=== PATIENT | female | born 1990 | race Caucasian/White ===

== ENCOUNTER → 2025-04-26 | Outpatient (CLI) | payer OTHER, SELFPAY ==
--- OUTSIDE RECORDS SUMMARY | 2025-04-26 21:48 | XMS RPT_ITS | CCD ---
Author Organization [facility] Care Team Providers Care Occupational Health Rn Name Role Phone Dossi Olesya SHARIF Unavailable Wiliam Reyes Unavailable Unavailable PROVIDER, UNKNOWN Unavailable Unavailable Lázaro Braga Unavailable Unavailable Aquiles Huber Unavailable Unavailable PROVIDER, UNKNOWN Unavailable Unavailable Lázaro Braga Unavailable Unavailable Dossi Olesya SHARIF Unavailable LÁZARO LINDA DO Primary Care Physician DAVIE MARCANO, DR SMITA Calzada Primary Care Physician CHRIS URENA Referring Unavailable CHRIS URENA Attending Unavailable LÁZARO LINDA Primary Care Unavailable Lázaro Linda DO Primary Care Provider [phone] ERICA VICTOR DO Referring Unavailable DAYA NICOLE, RAMON [employer] Consult[employer] Unavailable CHIVO THOMPSON MD Admitting Unavailable REVA MOBLEY-RODOLFO, PRASHANT Ovalle Attending Unavai concetta BRODERICK DO, DR SMITA Calzada Primary Care Unavail able DAVIE MARCANO, DR SMITA Calzada Primary Care Unavail able CALLY MOBLEY-MARY JO REYNOLDS Attending Eloise vailable XI MOBLEY-CHRISTIAN, OSITO Concepcion Attending Unav ailable DAVIE MARCANO, DR SMITA Calzada Primary Care Unavail able XI CHAN, OSITO Concepcion Attending Unav ailable DAVIE MARCANO, DR SMITA Calzada Primary Care Unavail able DAVIE MARCANO, DR SMITA Calzada Primary Care Unavail able CALLY MOBLEY-MARY JO REYNOLDS Attending Eloise vailable DAVIE MARCANO, DR SMITA Calzada Primary Care Physician EVANS SCHAEFER DO Attending Unavailable DAVIE MARCANO, DR SMITA Calzdaa Primary Care Unavail able DR SMITA BRODERICK DO Primary Care Unavail able DR SMITA BRODERICK DO Attending Unavail able Assessment, Health Risk Referring Unavaila ble Assessment, Health Risk Attending Unavaila ble Josie Jimenez Primary Care Unavailable Allergies Allergy Classification Reported Allergen(s) Allergy Type Date of Onset Reaction(s) Facility (7 sources) ONIONS; Translations: [ONIONS] food allergy 7 [facility] Work Phone: (14 sources) Onion extract; Translations: [onion] Drug Allergy 2 Migraines [facility] (1 source) OTHER; Translations: [OTHER] Propensity to adverse reactions (disorder) 7 [facility] (1 source) ONIONS [Other] Propensity to adverse reactions 7 [facility] Work Phone: Medications Current Medications Medication Drug Class(es) Dates Sig (Normalized) Sig (Original) FLUoxetine 20 mg oral capsule (5 sources) Serotonin Reuptake Inhibitor Start: 07-28-2023 PROzac 20 mg oral capsule Dose : 20 mg = 1 cap(s), Oral, qDay, # 30 cap(s), 0 Refill(s) Start Date: 07/28/23 Status: Ordered Quantity: 30.0 Unit: cap(s) Repeat number: 1 Vitamin D3 50,000 intl units (1250 mcg) oral capsule (8 sources) Start: 11-12-2020 Vitamin D3 50,000 intl units (1250 mcg) oral capsule Dose : 50,000 International_Unit = 1 cap(s), Oral, qWeek, # 13 cap(s), 3 Refill(s), Pharmacy: [address], Vitamin D deficiency, 172, cm, 11/12/20 10:37:00 EST, Height, kg, 11/12/20 10:37:00 EST, Dosing Weight Start Date: 11/12/20 Status: Ordered Completed/Discontinued Medications Medication Drug Class(es) Dates Sig (Normalized) Sig (Original) Acetaminophen (1 source) ACETAMINOPHEN (TYLENOL ORAL) Take by mouth. prn 0 Active Comment on above: Take by mouth. prn albuterol MDI (90 mcg/inh) CFC free inhalation aerosol (20 sources) Start: 09-22-2021 End: 10-22-2021 take 2 puff(s) by inhalation every four hours albuterol MDI (90 mcg/inh) CFC free inhalation aerosol 2 puff(s), Inhalation, q4h, ok to fill generic equivalent rescue inhaler, # 1 EA, 0 Refill(s), Pharmacy: [facility] 170.2, cm, 01/15/21 8:42:00 EDT, Height, kg, 01/15/21 8:42:00 EDT, Dosing Weight Start Date: 09/22/21 Stop Date: 10/22/21 Status: Ordered Quantity: 1.0 Unit: EA Repeat number: 1 Start: 09-22-2021 End: 10-22-2021 take 2 puff(s) by inhalation every four hours albuterol MDI (90 mcg/inh) CFC free inhalation aerosol 2 puff(s), Inhalation, q4h, ok to fill generic equivalent rescue inhaler, # 1 EA, 0 Refill(s), Pharmacy: [facility] 170.2, cm, 01/15/21 8:42:00 EDT, Height, kg, 01/15/21 8:42:00 EDT, Dosing Weight Start Date: 09/22/21 Stop Date: 10/22/21 Status: Ordered Start: 09-22-2021 End: 10-22-2021 take 2 puff(s) by inhalation every four hours albuterol MDI (90 mcg/inh) CFC free inhalation aerosol 2 puff(s), Inhalation, q4h, ok to fill generic equivalent rescue inhaler, # 1 EA, 0 Refill(s), Pharmacy: [facility]-[address] 170.2, cm, 01/15/21 8:42:00 EDT, Height, kg, 01/15/21 8:42:00 EDT, Dosing Weight Start Date: 09/22/21 Stop Date: 10/22/21 Status: Ordered ALPRAZolam 0.5 mg oral tablet (5 sources) Benzodiazepine Start: 07-28-2023 ALPRAZolam 0.5 mg oral tablet Dose : 0.5 mg = 1 tab(s), Oral, qDay, PRN for anxiety, 0 Refill(s), 113.8 Start Date: 07/28/23 Status: Ordered Repeat number: 1 levonorgestrel 0.957766 mg/hr intrauterine system (1 source) Progestin, Progestin-containin g Intrauterine Device Start: 03-04-2017 levonorgestrel (MIRENA) 20 mcg/24 hr (5 years) IUD Inserted in office 1 Each 0 03/04/2017 Active Comment on above: Inserted in office ondansetron 8 mg oral tablet (3 sources) Serotonin-3 Receptor Antagonist Start: 08-18-2022 End: 08-21-2022 take 1 tablet by mouth twice daily as needed for vomiting Zofran ODT use ondansetron oral tablet, disintegrating Dose : 8 mg =, Oral, BID, prn vomiting, # 6 tab(s), 0 Refill(s), Viral syndrome Start Date: 08/18/22 Stop Date: 08/21/22 Status: Ordered orlistat 60 mg oral capsule (1 source) Intestinal Lipase Inhibitor Start: 12-08-2018 take 1 capsule by mouth three times daily at mealtime Orlistat 60 mg capsule Take 1 capsule by mouth three times daily with meals. 90 capsule 3 12/08/2018 Active Comment on above: Take 1 capsule by mo [facility] three times daily with meals. Problems Active Problems Problem Classification Problem Date Documented Date Episodic/Chronic Abdominal pain (2 sources) Right upper quadrant pain; Translations: [Right upper quadrant pain] Onset: 08-28-2022 Episodic Anxiety disorders (15 sources) Anxiety disorder, unspecified; Translations: [Mixed anxiety and depressive disorder] Onset: 08-27-2018 05-25-2019 Chronic Headache; including migraine (19 sources) Other migraine, not intractable, without status migrainosus; Translations: [Migraine without aura, not intractable, with status migrainosus] Onset: 05-07-2018 05-25-2019 Chronic Headache; including migraine (3 sources) Headache; Translations: [Headache] Onset: 08-27-2018 Episodic Immunizations and screening for infectious disease (2 sources) Encounter for screening for human papillomavirus (HPV); Translations: [Encounter for screening for human papillomavirus (HPV)] Onset: 09-14-2023 Episodic Malaise and fatigue (15 sources) Fatigue; Translations: [Other fatigue] Onset: 07-28-2023 07-11-2019 Episodic Mood disorders (2 sources) Major depressive disorder, single episode, unspecified; Translations: [Major depressive disorder, single episode, unspecified] Onset: 08-27-2018 Nutritional deficiencies (13 sources) Vitamin D deficiency 10-10-2020 Chronic Other connective tissue disease (13 sources) Muscle pain 07-11-2019 Episodic Other hereditary and degenerative nervous system conditions (13 sources) Restless legs 05-25-2019 Chronic Other nervous system disorders (1 source) H/O: SCALLOP BINDER disorder; Translations: [Personal history of other diseases of the nervous system and sense organs] Onset: 07-28-2023 Episodic Other nutritional; endocrine; and metabolic disorders (13 sources) Body mass index 30+ - obesity 10-10-2020 Chronic Other nutritional; endocrine; and metabolic disorders (13 sources) Obesity 05-29-2019 Chronic Residual codes; unclassified (2 sources) Acquired absence of other specified parts of digestive tract; Translations: [Acquired absence of other specified parts of digestive tract] Onset: 08-27-2018 Episodic Screening and history of mental health and substance abuse codes (2 sources) Personal history of nicotine dependence; Translations: [Personal history of nicotine dependence] Onset: 08-27-2018 Episodic Thyroid disorders (15 sources) Hypothyroidism, unspecified; Translations: [Hypothyroidism] Onset: 08-27-2018 05-25-2019 Chronic Unclassified (20 sources) Patient encounter status 10-10-2020 Viral infection (2 sources) Viral disease; Translations: [Other viral agents as the cause of diseases classified elsewhere] Onset: 08-18-2022 Episodic Past or Other Problems Problem Classification Problem Date Documented Date Episodic/Chronic Cancer of cervix (1 source) Atypical squamous cells on cervical Papanicolaou smear cannot exclude high grade squamous intraepithelial lesion; Translations: [Atypical squamous cells cannot exclude high grade squamous intraepithelial lesion on cytologic smear of cervix (ASC-H)] Onset: 06-02-2021 06-29-2021 Episodic Other bone disease and musculoskeletal deformities (20 sources) Segmental and somatic dysfunction; Translations: [Segmental and somatic dysfunction of lumbar region] Onset: 04-28-2017 05-02-2017 Episodic Other non-traumatic joint disorders (1 source) Bilateral hip joint pain; Translations: [Pain in right hip] Onset: 08-30-2016 08-30-2016 Episodic Other nutritional; endocrine; and metabolic disorders (1 source) H/O: thyroid disorder; Translations: [Personal history of other endocrine, nutritional and metabolic disease] Onset: 07-10-2015 09-28-2021 Episodic Sprains and strains (7 sources) Strain of back muscle; Translations: [Other injury of unspecified body region] Onset: 04-28-2017 05-02-2017 Episodic Results Test Name Value Interpretation Reference Range Facility .Auto Diffon 08-23-2024 Basophil, Absolute 0.0 10 3/mcL Normal 0.0-0.2 [facility] Comment on above: Performed By: #### G FR, CMP, FE, CBC, MG, TSH, ANEU, ADIFF #### [address] [address] Basophils/100 WBC (Bld) 0.8 % Normal 0.0-2.5 [facility] Comment on above: Performed By: #### G FR, CMP, FE, CBC, MG, TSH, ANEU, ADIFF #### [address] [address] Eosinophil, Absolute 0.3 10 3/mcL Normal 0.0-0.7 [facility] Comment on above: Performed By: #### G FR, CMP, FE, CBC, MG, TSH, ANEU, ADIFF #### [address] [address] Eosinophils/100 WBC (Bld) 4.4 % Normal 0.0-7.0 [facility] Comment on above: Performed By: #### G FR, CMP, FE, CBC, MG, TSH, ANEU, ADIFF #### [address] [address] Lymphocyte, Absolute 1.5 10 3/mcL Normal 0.9-4.3 [facility] Comment on above: Performed By: #### G FR, CMP, FE, CBC, MG, TSH, ANEU, ADIFF #### [address] [address] Lymphocytes/100 WBC (Bld) 25.8 % Normal 20.0-40.0 [facility] Comment on above: Performed By: #### G FR, CMP, FE, CBC, MG, TSH, ANEU, ADIFF #### [address] [address] Monocyte, Absolute 0.4 10 3/mcL Normal 0.1-1.4 [facility] Comment on above: Performed By: #### G FR, CMP, FE, CBC, MG, TSH, ANEU, ADIFF #### [address] [address] Monocytes/100 WBC (Bld) 7.3 % Normal 2.0-13.0 [facility] Comment on above: Performed By: #### G FR, CMP, FE, CBC, MG, TSH, ANEU, ADIFF #### [address] [address] Neutrophils/100 WBC (Bld) 61.7 % Normal 50.0-75.0 [facility] Comment on above: Performed By: #### G FR, CMP, FE, CBC, MG, TSH, ANEU, ADIFF #### [address] [address] .GFRon 08-23-2024 GFR 94 ml/min/1.73sqm Normal [facility] Comment on above: Result Comment: GFR Population mean for , Non- Americans Ages 20-29 = 116 mL/min/1.73 sq.m. Ages 30-39 = 107 mL/min/1.73 sq.m. Ages 40-49 = 99 mL/min/1.73 sq.m. Ages 50-59 = 93 mL/min/1.73 sq.m. Ages 60-69 = 85 mL/min/1.73 sq.m. Ages 70+ = 75 mL/min/1.73 sq.m. Chronic Kidney Disease: Less than 60 mL/min/1.73 square meters End Stage Renal Disease: Less than 15 mL/min/1.73 square meters Performed By: #### G FR, CMP, FE, CBC, MG, TSH, ANEU, ADIFF #### [address] [address] GFR Non- 77 ml/min/1.73sqm Normal [facility] Comment on above: Result Comment: GFR Population mean for , Non- Americans Ages 20-29 = 116 mL/min/1.73 sq.m. Ages 30-39 = 107 mL/min/1.73 sq.m. Ages 40-49 = 99 mL/min/1.73 sq.m. Ages 50-59 = 93 mL/min/1.73 sq.m. Ages 60-69 = 85 mL/min/1.73 sq.m. Ages 70+ = 75 mL/min/1.73 sq.m. Chronic Kidney Disease: Less than 60 mL/min/1.73 square meters End Stage Renal Disease: Less than 15 mL/min/1.73 square meters Performed By: #### G FR, CMP, FE, CBC, MG, TSH, ANEU, ADIFF #### [address] [address] .NEUABSon 08-23-2024 Neutrophil, Absolute 3.6 10 3/mcL Normal 2.3-8.1 [facility] Comment on above: Performed By: #### G FR, CMP, FE, CBC, MG, TSH, ANEU, ADIFF #### [address] [address] CBCon 08-23-2024 Erythrocyte distribution width (RBC) [Ratio] 13.9 % Normal 11.5-15.5 [facility] Comment on above: Performed By: #### G FR, CMP, FE, CBC, MG, TSH, ANEU, ADIFF #### [address] [address] Hematocrit (Bld) [Volume fraction] 40.9 % Normal 34.0-46.0 [facility] Comment on above: Performed By: #### G FR, CMP, FE, CBC, MG, TSH, ANEU, ADIFF #### [address] [address] Hgb 13.5 G/dL Normal 12.0-16.0 [facility] Comment on above: Performed By: #### G FR, CMP, FE, CBC, MG, TSH, ANEU, ADIFF #### [address] [address] MCH (RBC) [Entitic mass] 28.4 pg Normal 27.0-33.0 [facility] Comment on above: Performed By: #### G FR, CMP, FE, CBC, MG, TSH, ANEU, ADIFF #### [address] [address] MCHC 33.0 G/dL Normal 32.0-36.0 [facility] Comment on above: Performed By: #### G FR, CMP, FE, CBC, MG, TSH, ANEU, ADIFF #### [address] [address] MCV (RBC) [Entitic vol] 85.9 fL Normal 80.0-99.0 [facility] Comment on above: Performed By: #### G FR, CMP, FE, CBC, MG, TSH, ANEU, ADIFF #### [address] [address] Platelet 260 10 3/mcL Normal 150-450 [facility] Comment on above: Performed By: #### G FR, CMP, FE, CBC, MG, TSH, ANEU, ADIFF #### [address] [address] Platelet mean volume (Bld) [Entitic vol] 9.1 fL Normal 6.6-10.5 [facility] Comment on above: Performed By: #### G FR, CMP, FE, CBC, MG, TSH, ANEU, ADIFF #### [address] [address] RBC 4.76 10 6/mcL Normal 4.10-5.30 [facility] Comment on above: Performed By: #### G FR, CMP, FE, CBC, MG, TSH, ANEU, ADIFF #### [address] [address] WBC 5.8 10 3/mcL Normal 4.5-10.8 [facility] Comment on above: Performed By: #### G FR, CMP, FE, CBC, MG, TSH, ANEU, ADIFF #### [address] [address] CMPon 08-23-2024 Albumin Level 3.9 G/dL Normal 3.5-5.0 [facility] Comment on above: Performed By: #### G FR, CMP, FE, CBC, MG, TSH, ANEU, ADIFF #### [address] [address] Albumin/Globulin [Mass ratio] 1.2 {ratio} Normal 1.1-2.5 [facility] Comment on above: Performed By: #### G FR, CMP, FE, CBC, MG, TSH, ANEU, ADIFF #### [address] [address] ALP [Catalytic activity/Vol] 103 U/L Normal 40-135 [facility] Comment on above: Performed By: #### G FR, CMP, FE, CBC, MG, TSH, ANEU, ADIFF #### [address] [address] ALT [Catalytic activity/Vol] 71 U/L High 14-59 [facility] Comment on above: Performed By: #### G FR, CMP, FE, CBC, MG, TSH, ANEU, ADIFF #### [address] [address] AST [Catalytic activity/Vol] 36 U/L Normal 10-40 [facility] Comment on above: Performed By: #### G FR, CMP, FE, CBC, MG, TSH, ANEU, ADIFF #### [address] [address] Bili Total 0.5 mg/dL Normal 0.2-1.0 [facility] Comment on above: Result Comment: Use of this assay is not recommended for patients undergoing treatment with eltrombopag due to the potential for falsely elevated results. Performed By: #### G FR, CMP, FE, CBC, MG, TSH, ANEU, ADIFF #### [address] [address] BUN/Creatinine Ratio 6 ratio Low 7-27 [facility] Comment on above: Performed By: #### G FR, CMP, FE, CBC, MG, TSH, ANEU, ADIFF #### [address] [address] Calcium [Mass/Vol] 9.3 mg/dL Normal 8.4-10.2 [facility] Comment on above: Performed By: #### G FR, CMP, FE, CBC, MG, TSH, ANEU, ADIFF #### [place] [address] Chloride [Moles/Vol] 103 mmol/L Normal 98-107 [facility] Comment on above: Performed By: #### G FR, CMP, FE, CBC, MG, TSH, ANEU, ADIFF #### [place] [address] CO2 [Moles/Vol] 26 mmol/L Normal 22-29 [facility] Comment on above: Performed By: #### G FR, CMP, FE, CBC, MG, TSH, ANEU, ADIFF #### [place] [address] Creatinine [Mass/Vol] 0.84 mg/dL Normal 0.55-1.02 [facility] Comment on above: Result Comment: Test ing performed on Siemens Dimension EXL analyzer using a modified kinetic Dmitry technique. Performed By: #### G FR, CMP, FE, CBC, MG, TSH, ANEU, ADIFF #### [address] [address] Electrolyte Balance 12.0 mEq/L Normal 4.0-15.0 [facility] Comment on above: Performed By: #### G FR, CMP, FE, CBC, MG, TSH, ANEU, ADIFF #### [place] [address] Globulin 3.3 G/dL Normal [facility] Comment on above: Performed By: #### G FR, CMP, FE, CBC, MG, TSH, ANEU, ADIFF #### [address] [address] Glucose [Mass/Vol] 86 mg/dL Normal 70-105 [facility] Comment on above: Performed By: #### G FR, CMP, FE, CBC, MG, TSH, ANEU, ADIFF #### [address] [address] Potassium [Moles/Vol] 4.0 mmol/L Normal 3.5-5.1 [facility] Comment on above: Performed By: #### G FR, CMP, FE, CBC, MG, TSH, ANEU, ADIFF #### [address] [address] Sodium [Moles/Vol] 141 mmol/L Normal 136-145 [facility] Comment on above: Performed By: #### G FR, CMP, FE, CBC, MG, TSH, ANEU, ADIFF #### [address] [address] Total Protein 7.2 G/dL Normal 6.4-8.2 [facility] Comment on above: Performed By: #### G FR, CMP, FE, CBC, MG, TSH, ANEU, ADIFF #### [address] [address] Urea nitrogen [Mass/Vol] 5 mg/dL Low 7-18 [facility] Comment on above: Performed By: #### G FR, CMP, FE, CBC, MG, TSH, ANEU, ADIFF #### [address] [address] FEon 08-23-2024 Iron [Mass/Vol] 57 ug/dL Normal 50-170 [facility] Comment on above: Performed By: #### G FR, CMP, FE, CBC, MG, TSH, ANEU, ADIFF #### [address] [address] LABORATORYOrdered By: SYSTEM SYSTEM on 08-23-2024 Albumin BCP dye [Mass/Vol] 3.9 G/dL Normal 3.5 - 5.0 G/dL AO ADM SS Albumin/Globulin [Mass ratio] 1.2 {ratio} Normal 1.1 - 2.5 ratio AO ADM SS ALP [Catalytic activity/Vol] 103 U/L Normal 40 - 135 U/L AO ADM SS ALT With P-5'-P [Catalytic activity/Vol] 71 U/L High 14 - 59 U/L AO ADM SS AST With P-5'-P [Catalytic activity/Vol] 36 U/L Normal 10 - 40 U/L AO ADM SS Basophils (Bld) [#/Vol] 0.0 103/mcL Normal 0.0 - 0.2 10^3/mcL AO Workflow SS Basophils/100 WBC (Bld) 0.8 % Normal 0.0 - 2.5 % AO Workflow SS Bilirubin [Mass/Vol] 0.5 mg/dL Normal 0.2 - 1 .0 mg/dL AO ADM SS Comment on above: Interpretive Data: U se of this assay is not recommended for patients undergoing treatment with eltrombopag due to the potential for falsely elevated results. Calcium [Mass/Vol] 9.3 mg/dL Normal 8.4 - 10. 2 mg/dL AO ADM SS Chloride [Moles/Vol] 103 mmol/L Normal 98 - 10 7 mmol/L AO ADM SS CO2 [Moles/Vol] 26 mmol/L Normal 22 - 29 mmol/L AO ADM SS Creatinine [Mass/Vol] 0.84 mg/dL Normal 0.55 - 1.02 mg/dL AO ADM SS Comment on above: Interpretive Data: T esting performed on Siemens Dimension EXL analyzer using a modified kinetic Dmitry technique. Electrolyte Balance 12.0 mEq/L Normal 4.0 - 15 .0 mEq/L AO ADM SS Eosinophil, Absolute 0.3 103/mcL Normal 0.0 - 0 .7 10^3/mcL AO Workflow SS Eosinophils/100 WBC (Bld) 4.4 % Normal 0.0 - 7.0 % AO Workflow SS Erythrocyte distribution width (RBC) [Ratio] 13.9 % Normal 11.5 - 15.5 % AO Workflow SS GFR/1.73 sq M.predicted among blacks MDRD (S/P/Bld) [Vol rate/Area] 94 ml/min/1.73sqm Invalid Interpretation Code AO Chemistry S Comment on above: Interpretive Data: GFR Population mean for , Non- Americans Ages 20-29 = 116 mL/min/1.73 sq.m. Ages 30-39 = 107 mL/min/1.73 sq.m. Ages 40-49 = 99 mL/min/1.73 sq.m. Ages 50-59 = 93 mL/min/1.73 sq.m. Ages 60-69 = 85 mL/min/1.73 sq.m. Ages 70+ = 75 mL/min/1.73 sq.m. Chronic Kidney Disease: Less than 60 mL/min/1.73 square meters End Stage Renal Disease: Less than 15 mL/min/1.73 square meters GFR/1.73 sq M.predicted among non-blacks MDRD (S/P/Bld) [Vol rate/Area] 77 ml/min/1.73sqm Invalid Interpretation Code AO Chemistry S Comment on above: Interpretive Data: GFR Population mean for , Non- Americans Ages 20-29 = 116 mL/min/1.73 sq.m. Ages 30-39 = 107 mL/min/1.73 sq.m. Ages 40-49 = 99 mL/min/1.73 sq.m. Ages 50-59 = 93 mL/min/1.73 sq.m. Ages 60-69 = 85 mL/min/1.73 sq.m. Ages 70+ = 75 mL/min/1.73 sq.m. Chronic Kidney Disease: Less than 60 mL/min/1.73 square meters End Stage Renal Disease: Less than 15 mL/min/1.73 square meters Globulin 3.3 G/dL Invalid Interpretation Code AO ADM SS Glucose [Mass/Vol] 86 mg/dL Normal 70 - 105 mg/dL AO ADM SS Hematocrit (Bld) [Volume fraction] 40.9 % Normal 34.0 - 46.0 % AO Workflow SS Hemoglobin (Bld) [Mass/Vol] 13.5 G/dL Normal 12.0 - 16.0 G/dL AO Workflow SS Iron [Mass/Vol] 57 ug/dL Normal 50 - 170 mcg/dL AO ADM SS Lymphocytes (Bld) [#/Vol] 1.5 103/mcL Normal 0.9 - 4.3 10^3/mcL AO Workflow SS Lymphocytes/100 WBC (Bld) 25.8 % Normal 20.0 - 40.0 % AO Workflow SS Magnesium [Mass/Vol] 2.1 mg/dL Normal 1.8 - 2 .4 mg/dL AO ADM SS MCH (RBC) [Entitic mass] 28.4 pg Normal 27.0 - 33.0 pg AO Workflow SS MCHC 33.0 G/dL Normal 32.0 - 36.0 G/dL AO Workflow SS MCV (RBC) [Entitic vol] 85.9 fL Normal 80.0 - 99.0 fL AO Workflow SS Monocytes (Bld) [#/Vol] 0.4 103/mcL Normal 0.1 - 1.4 10^3/mcL AO Workflow SS Monocytes/100 WBC (Bld) 7.3 % Normal 2.0 - 13.0 % AO Workflow SS Neutrophils (Bld) [#/Vol] 3.6 103/mcL Normal 2.3 - 8.1 10^3/mcL AO Workflow SS Neutrophils/100 WBC (Bld) 61.7 % Normal 50.0 - 75.0 % AO Workflow SS Platelet mean volume (Bld) [Entitic vol] 9.1 fL Normal 6.6 - 10.5 fL AO Workflow SS Platelets (Bld) [#/Vol] 260 103/mcL Normal 150 - 450 10^3/mcL AO Workflow SS Potassium [Moles/Vol] 4.0 mmol/L Normal 3.5 - 5.1 mmol/L AO ADM SS Protein [Mass/Vol] 7.2 G/dL Normal 6.4 - 8.2 G/dL AO ADM SS RBC (Bld) [#/Vol] 4.76 106/mcL Normal 4.10 - 5.3 0 10^6/mcL AO Workflow SS Sodium [Moles/Vol] 141 mmol/L Normal 136 - 145 mmol/L AO ADM SS TSH Qn 3.67 m[IU]/L Normal 0.36 - 3.74 mcIU/mL AO ADM SS Urea nitrogen [Mass/Vol] 5 mg/dL Low 7 - 18 mg/dL AO ADM SS Urea nitrogen/Creatinine [Mass ratio] 6 ratio Low 7 - 27 ratio AO ADM SS WBC (Bld) [#/Vol] 5.8 103/mcL Normal 4.5 - 10.8 10^3/mcL AO Workflow SS MGon 08-23-2024 Magnesium [Mass/Vol] 2.1 mg/dL Normal 1.8-2.4 [facility] Comment on above: Performed By: #### G FR, CMP, FE, CBC, MG, TSH, ANEU, ADIFF #### [facility] [address] [place], [place] [address] TSHon 08-23-2024 TSH Qn 3.67 m[IU]/L Normal 0.36-3.74 [facility] Comment on above: Performed By: #### G FR, CMP, FE, CBC, MG, TSH, ANEU, ADIFF #### [place] [id number] [place], [place] [address] [facility] Reporton 2022 [facility] Cytology Report . Pathology Reports Accession: Collected Date/Time: Received Date/Time: Pathologist: [id number] 09/14/2023 11:51 EST 09/14/2023 18:00 EST [facility] Cytology Report SPECIMEN: Specimen Description: Liquid Prep w/ HPV Specimen: Cervical Screening or Diagnostic: Screening RELEVANT HISTORY: LMP: not given IUD SPECIMEN ADEQUACY: SATISFACTORY FOR EVALUATION Endocervical/Transforma tional zone component present INTERPRETATION/RESULTS: NEGATIVE FOR INTRAEPITHELIAL LESION OR MALIGNANCY HIGH RISK HPV TESTING: Event Code Result HPV Interp See Interp HPVN HPV Interp Text: High Risk HPV Typing: NEGATIVE HPV types 16, 18, 31, 33, 35, 39, 45, 51, 52, 56, 58, 59, 66 and 68 DNA were undetectable or below the pre-set threshold. The ki High-Risk HPV DNA Test is not intended for use as a screening device for Pap normal women under age 30 and is not intended to substitute for regular Pap screening. The ki High-Risk HPV DNA Test is designed to augment existing methods for the detection of cervical disease and should be used in conjunction with clinical information derived from other diagnostic and screening tests, physical examinations and full medical history in accordance with appropriate patient management procedures. NOTE: A negative result does not preclude the presence of HPV infection because results depend on adequate specimen collection, absence of inhibitors and sufficient DNA to be detected. As of: 09/21/23 11:09 EST COMMENT: This Pap Test was successfully processed and evaluated with the assistance of the [employer] System. Pathology Reports Accession: Collected Date/Time: Received Date/Time: Pathologist: [id number] 09/14/2023 11:51 EST 09/14/2023 18:00 EST Electronically Signed by Pathology report verified by [facility] Screened by: KK Electronically signed by Nicky WINN (ASCP) Sign-Out Date: 09/21/2023 11:09 Performing Lab: [facility], [address] [place] [address] Pathology Dept Disclaimer The Pap test is a screening test for cervical cancer. As evidenced by published data, it is subject to both inherent false negative and false positive results. Your patient's results should be interpreted in context with pertinent clinical history including gynecological examination. Normal [facility] ([place]) HPVon 09-21-2023 HPV Interp Normal See Interp HPVN [facility] ([place]) Comment on above: Order Comment: Order placed by AP_HPV_ORDER rule from [id number] Result Comment: High Risk HPV Typing: NEGATIVE HPV types 16, 18, 31, 33, 35, 39, 45, 51, 52, 56, 58, 59, 66 and 68 DNA were undetectable or below the pre-set threshold. The ki High-Risk HPV DNA Test is not intended for use as a screening device for Pap normal women under age 30 and is not intended to substitute for regular Pap screening. The ki High-Risk HPV DNA Test is designed to augment existing methods for the detection of cervical disease and should be used in conjunction with clinical information derived from other diagnostic and screening tests, physical examinations and full medical history in accordance with appropriate patient management procedures. NOTE: A negative result does not preclude the presence of HPV infection because results depend on adequate specimen collection, absence of inhibitors and sufficient DNA to be detected. See Inter HPVN Performed By: #### A JANNA, PRO, TROPHS, ADIFF, ANSG, LAC, CBC, MDW, ABOG #### [id number] [place], [place] [address] HPV Source Cervix Normal [facility] ([place]) Comment on above: Order Comment: Order placed by AP_HPV_ORDER rule from [id number] Performed By: #### A JANNA, PRO, TROPHS, ADIFF, ANSG, LAC, CBC, MDW, ABOG #### [address] [address] CTPCRon 09-16-2023 C. trachomatis Interp Normal See CT Interp N [facility] ([place]) Comment on above: Result Comment: C. t rachomatis DNA not detected. Specimen is presumptive negative for C. trachomatis. A negative result does not preclude C. trachomatis infection because results depend on adequate specimen collection, absence of inhibitors, and sufficient DNA to be detected. See CT Interp N Performed By: #### A JANNA, PRO, TROPHS, ADIFF, ANSG, LAC, CBC, MDW, ABOG #### [id number] [place], [place] [address] C.trachomatis PCR Negative Normal Negative [facility] ([place]) Comment on above: Result Comment: Mole cular (PCR) assay performed on the [employer] Ki 4800 system. Performed By: #### A JANNA, PRO, TROPHS, ADIFF, ANSG, LAC, CBC, MDW, ABOG #### [address] [address] Chlam Source Cervix Normal [facility] ([place]) Comment on above: Performed By: #### A JANNA, PRO, TROPHS, ADIFF, ANSG, LAC, CBC, MDW, ABOG #### [address] [address] [id number] 09-16-2023 GC PCR Source Cervix Normal [facility] ([place]) Comment on above: Performed By: #### A JANNA, PRO, TROPHS, ADIFF, ANSG, LAC, CBC, MDW, ABOG #### [address] [address] N. gonorrhoeae (PCR) Negative [facility] [place]) Comment on above: Result Comment: Mole cular (PCR) assay performed on the [employer] Ki 4800 System. Performed By: #### A JANNA, PRO, TROPHS, ADIFF, ANSG, LAC, CBC, MDW, ABOG #### [id number] [place], [place] [address] N. gonorrhoeae Interp Normal See NG Interp N [facility] ([place]) Comment on above: Result Comment: N. g onorrhoeae DNA not detected. Specimen is presumptive negative for N. gonorrhoeae. A negative result does not preclude Neisseria gonorrhoeae infection because results depend on adequate specimen collection, absence of inhibitors, and sufficient DNA to be detected. See NG Interp N Performed By: #### A JANNA, PRO, TROPHS, ADIFF, ANSG, LAC, CBC, MDW, ABOG #### [id number] [place], [place] [address] LABORATORYOrdered By: Cam Rene on 09-14-2023 C. trachomatis DNA CHI+probe Ql (Unsp spec) Negative 2 (09/14/23 11:51 AM) Normal Negative Auto Viro/Sero SS Comment on above: Interpretive Data: M olecular (PCR) assay performed on the [employer] Ki 4800 system. C. trachomatis DNA CHI+probe Ql (Unsp spec) C. trachomatis DNA not detected. Specimen is presumptive negative forC. trachomatis.A negative result does not preclude C. trachomatis infection becauseresults depend on adequate specimen collection, absence of inhibitors,and sufficient DNA to be detected. Normal See CT Interp N AH Auto Viro/Sero SS N. gonorrhoeae DNA CHI+probe Ql (Unsp spec) Negative 1 (09/14/23 11:51 AM) Normal Negative AH Auto Viro/Sero SS Comment on above: Interpretive Data: M olecular (PCR) assay performed on the [employer] Ki 4800 System. N. gonorrhoeae DNA CHI+probe Ql (Unsp spec) N. gonorrhoeae DNA not detected. Specimen is presumptive negative forN. gonorrhoeae. A negative result does not preclude Neisseria gonorrhoeaeinfection because results depend on adequate specimen collection, absenceof inhibitors, and sufficient DNA to be detected. Normal See NG Interp N AH Auto Viro/Sero SS Laboratory - Specimen inform ationOrdered By: Cam Rene on 09-14-2023 Specimen source Nom (Unsp spec) Cervix (09/14/23 11:51 AM) Normal AH Auto Viro/Sero SS .Auto Diffon 07-28-2023 Basophil, Absolute 0.1 10 3/mcL Normal 0.0-0.2 [facility] [place]) Comment on above: Performed By: #### A JANNA, PRO, TROPHS, ADIFF, ANSG, LAC, CBC, MDW, ABOG #### [address] [address] Basophils/100 WBC (Bld) 0.7 % Normal 0.0-2.5 [facility] ([place]) Comment on above: Performed By: #### A JANNA, PRO, TROPHS, ADIFF, ANSG, LAC, CBC, MDW, ABOG #### [address] [address] Eosinophil, Absolute 0.3 10 3/mcL Normal 0.0-0.4 [facility] ([place]) Comment on above: Performed By: #### A JANNA, PRO, TROPHS, ADIFF, ANSG, LAC, CBC, MDW, ABOG #### [address] [address] Eosinophils/100 WBC (Bld) 3.0 % Normal 0.0-7.0 [facility] ([place]) Comment on above: Performed By: #### A JANNA, PRO, TROPHS, ADIFF, ANSG, LAC, CBC, MDW, ABOG #### [address] [address] Lymphocyte, Absolute 2.3 10 3/mcL Normal 0.8-3.9 [facility] ([place]) Comment on above: Performed By: #### A JANNA, PRO, TROPHS, ADIFF, ANSG, LAC, CBC, MDW, ABOG #### [address] [address] Lymphocytes/100 WBC (Bld) 26.0 % Normal 10.0-50.0 [facility] ([place]) Comment on above: Performed By: #### A JANNA, PRO, TROPHS, ADIFF, ANSG, LAC, CBC, MDW, ABOG #### [address] [address] Monocyte, Absolute 0.5 10 3/mcL Normal 0.2-1.0 [facility] [place]) Comment on above: Performed By: #### A JANNA, PRO, TROPHS, ADIFF, ANSG, LAC, CBC, MDW, ABOG #### [address] [address] Monocytes/100 WBC (Bld) 5.2 % Normal 1.7-13.0 [facility] ([place]) Comment on above: Performed By: #### A JANNA, PRO, TROPHS, ADIFF, ANSG, LAC, CBC, MDW, ABOG #### [address] [address] Neutrophils/100 WBC (Bld) 65.1 % Normal 37.0-80.0 [facility] ([place]) Comment on above: Performed By: #### A JANNA, PRO, TROPHS, ADIFF, ANSG, LAC, CBC, MDW, ABOG #### [address] [address] Basophil, Absolute 0.1 10 3/mcL Normal 0.0-0.2 [facility] [place]) Comment on above: Performed By: #### A JANNA, PRO, TROPHS, ADIFF, ANSG, LAC, CBC, MDW, ABOG #### [address] [address] Basophils/100 WBC (Bld) 0.8 % Normal 0.0-2.5 [facility] ([place]) Comment on above: Performed By: #### A JANNA, PRO, TROPHS, ADIFF, ANSG, LAC, CBC, MDW, ABOG #### [address] [address] Eosinophil, Absolute 0.3 10 3/mcL Normal 0.0-0.4 [facility] ([place]) Comment on above: Performed By: #### A JANNA, PRO, TROPHS, ADIFF, ANSG, LAC, CBC, MDW, ABOG #### [address] [address] Eosinophils/100 WBC (Bld) 2.4 % Normal 0.0-7.0 [facility] ([place]) Comment on above: Performed By: #### A JANNA, PRO, TROPHS, ADIFF, ANSG, LAC, CBC, MDW, ABOG #### [address] [address] Lymphocyte, Absolute 2.2 10 3/mcL Normal 0.8-3.9 [facility] ([place]) Comment on above: Performed By: #### A JANNA, PRO, TROPHS, ADIFF, ANSG, LAC, CBC, MDW, ABOG #### [address] [address] Lymphocytes/100 WBC (Bld) 20.6 % Normal 10.0-50.0 [facility] ([place]) Comment on above: Performed By: #### A JANNA, PRO, TROPHS, ADIFF, ANSG, LAC, CBC, MDW, ABOG #### [address] [address] Monocyte, Absolute 0.5 10 3/mcL Normal 0.2-1.0 [facility] [place]) Comment on above: Performed By: #### A JANNA, PRO, TROPHS, ADIFF, ANSG, LAC, CBC, MDW, ABOG #### [address] [address] Monocytes/100 WBC (Bld) 5.0 % Normal 1.7-13.0 [facility] ([place]) Comment on above: Performed By: #### A JANNA, PRO, TROPHS, ADIFF, ANSG, LAC, CBC, MDW, ABOG #### [address] [address] Neutrophils/100 WBC (Bld) 71.2 % Normal 37.0-80.0 [facility] ([place]) Comment on above: Performed By: #### A JANNA, PRO, TROPHS, ADIFF, ANSG, LAC, CBC, MDW, ABOG #### [address] [address] .GFRon 07-28-2023 GFR 104 ml/min/1.73sqm Normal [facility] ([place]) Comment on above: Result Comment: GFR Population mean for , Non- Americans Ages 20-29 = 116 mL/min/1.73 sq.m. Ages 30-39 = 107 mL/min/1.73 sq.m. Ages 40-49 = 99 mL/min/1.73 sq.m. Ages 50-59 = 93 mL/min/1.73 sq.m. Ages 60-69 = 85 mL/min/1.73 sq.m. Ages 70+ = 75 mL/min/1.73 sq.m. Chronic Kidney Disease: Less than 60 mL/min/1.73 square meters End Stage Renal Disease: Less than 15 mL/min/1.73 square meters Performed By: #### A JANNA, PRO, TROPHS, ADIFF, ANSG, LAC, CBC, MDW, ABOG #### [address] [address] GFR Non- 86 ml/min/1.73sqm Normal [facility] ([place]) Comment on above: Result Comment: GFR Population mean for , Non- Americans Ages 20-29 = 116 mL/min/1.73 sq.m. Ages 30-39 = 107 mL/min/1.73 sq.m. Ages 40-49 = 99 mL/min/1.73 sq.m. Ages 50-59 = 93 mL/min/1.73 sq.m. Ages 60-69 = 85 mL/min/1.73 sq.m. Ages 70+ = 75 mL/min/1.73 sq.m. Chronic Kidney Disease: Less than 60 mL/min/1.73 square meters End Stage Renal Disease: Less than 15 mL/min/1.73 square meters Performed By: #### A JANNA, PRO, TROPHS, ADIFF, ANSG, LAC, CBC, MDW, ABOG #### [address] [address] GFR Non- 72 ml/min/1.73sqm Normal [facility] ([place]) Comment on above: Result Comment: GFR Population mean for , Non- Americans Ages 20-29 = 116 mL/min/1.73 sq.m. Ages 30-39 = 107 mL/min/1.73 sq.m. Ages 40-49 = 99 mL/min/1.73 sq.m. Ages 50-59 = 93 mL/min/1.73 sq.m. Ages 60-69 = 85 mL/min/1.73 sq.m. Ages 70+ = 75 mL/min/1.73 sq.m. Chronic Kidney Disease: Less than 60 mL/min/1.73 square meters End Stage Renal Disease: Less than 15 mL/min/1.73 square meters Performed By: #### A JANNA, PRO, TROPHS, ADIFF, ANSG, LAC, CBC, MDW, ABOG #### [address] [address] GFR 87 ml/min/1.73sqm Normal [facility] ([place]) Comment on above: Result Comment: GFR Population mean for , Non- Americans Ages 20-29 = 116 mL/min/1.73 sq.m. Ages 30-39 = 107 mL/min/1.73 sq.m. Ages 40-49 = 99 mL/min/1.73 sq.m. Ages 50-59 = 93 mL/min/1.73 sq.m. Ages 60-69 = 85 mL/min/1.73 sq.m. Ages 70+ = 75 mL/min/1.73 sq.m. Chronic Kidney Disease: Less than 60 mL/min/1.73 square meters End Stage Renal Disease: Less than 15 mL/min/1.73 square meters Performed By: #### A JANNA, PRO, TROPHS, ADIFF, ANSG, LAC, CBC, MDW, ABOG #### [address] [address] .MDWon 07-28-2023 Monocyte Distribution Width 19.03 Normal 0.00-20.00 [facility] ([place]) Comment on above: Result Comment: For ED adult patients suspected of sepsis, MDW<=20.0 does not rule out sepsis or risk of sepsis Performed By: #### A JANNA, PRO, TROPHS, ADIFF, ANSG, LAC, CBC, MDW, ABOG #### [address] [address] .NEUABSon 07-28-2023 Neutrophil, Absolute 5.7 10 3/mcL Normal 2.9-6.2 [facility] ([place]) Comment on above: Performed By: #### A JANNA, PRO, TROPHS, ADIFF, ANSG, LAC, CBC, MDW, ABOG #### [address] [id number] Neutrophil, Absolute 7.6 10 3/mcL High 2.9-6.2 [facility] ([place]) Comment on above: Performed By: #### A JANNA, PRO, TROPHS, ADIFF, ANSG, LAC, CBC, MDW, ABOG #### [address] APTTon 07-28-2023 aPTT Coag (Bld) [Time] 29.6 s Normal 25.0-35.0 [facility] ([place]) Comment on above: Result Comment: For Heparin anticoagulation therapy, the recommended therapeutic range is: 50.6-87.4 seconds. Patients on heparin therapy may have an extreme result. Performed By: #### A JANNA, PRO, TROPHS, ADIFF, ANSG, LAC, CBC, MDW, ABOG #### [id number] Heparin dose (APTT) None Normal [facility] ([place]) Comment on above: Performed By: #### A JANNA, PRO, TROPHS, ADIFF, ANSG, LAC, CBC, MDW, ABOG #### [address] [address] CBCon 07-28-2023 Erythrocyte distribution width (RBC) [Ratio] 13.8 % Normal 11.5-14.5 [facility] ([place]) Comment on above: Performed By: #### A JANNA, PRO, TROPHS, ADIFF, ANSG, LAC, CBC, MDW, ABOG #### [address] [address] Hematocrit (Bld) [Volume fraction] 33.3 % Low 37.0-47.0 [facility] ([place]) Comment on above: Performed By: #### A JANNA, PRO, TROPHS, ADIFF, ANSG, LAC, CBC, MDW, ABOG #### [address] [address] Hgb 11.3 G/dL Low 12.0-16.0 [facility] ([place]) Comment on above: Performed By: #### A JANNA, PRO, TROPHS, ADIFF, ANSG, LAC, CBC, MDW, ABOG #### [address] [address] MCH (RBC) [Entitic mass] 28.8 pg Normal 27.0-31.2 [facility] ([place]) Comment on above: Performed By: #### A JANNA, PRO, TROPHS, ADIFF, ANSG, LAC, CBC, MDW, ABOG #### [address] [address] MCHC 33.9 G/dL Normal 33.0-37.0 [facility] ([place]) Comment on above: Performed By: #### A JANNA, PRO, TROPHS, ADIFF, ANSG, LAC, CBC, MDW, ABOG #### [address] [address] MCV (RBC) [Entitic vol] 84.9 fL Normal 80.0-94.0 [facility] ([place]) Comment on above: Performed By: #### A JANNA, PRO, TROPHS, ADIFF, ANSG, LAC, CBC, MDW, ABOG #### [address] [address] Platelet 233 10 3/mcL Normal 130-400 [facility] ([place]) Comment on above: Performed By: #### A JANNA, PRO, TROPHS, ADIFF, ANSG, LAC, CBC, MDW, ABOG #### [address] [address] Platelet mean volume (Bld) [Entitic vol] 8.6 fL Normal 7.4-10.4 [facility] ([place]) Comment on above: Performed By: #### A JANNA, PRO, TROPHS, ADIFF, ANSG, LAC, CBC, MDW, ABOG #### [address] [address] RBC 3.92 10 6/mcL Low 4.20-5.40 [facility] ([place]) Comment on above: Performed By: #### A JANNA, PRO, TROPHS, ADIFF, ANSG, LAC, CBC, MDW, ABOG #### [address] [address] WBC 8.8 10 3/mcL Normal 4.6-10.8 [facility] ([place]) Comment on above: Performed By: #### A JANNA, PRO, TROPHS, ADIFF, ANSG, LAC, CBC, MDW, ABOG #### [address] [address] Erythrocyte distribution width (RBC) [Ratio] 14.3 % Normal 11.5-14.5 [facility] ([place]) Comment on above: Performed By: #### A JANNA, PRO, TROPHS, ADIFF, ANSG, LAC, CBC, MDW, ABOG #### [address] [address] Hematocrit (Bld) [Volume fraction] 40.4 % Normal 37.0-47.0 [facility] ([place]) Comment on above: Performed By: #### A JANNA, PRO, TROPHS, ADIFF, ANSG, LAC, CBC, MDW, ABOG #### [address] [address] Hgb 13.5 G/dL Normal 12.0-16.0 [facility] ([place]) Comment on above: Performed By: #### A JANNA, PRO, TROPHS, ADIFF, ANSG, LAC, CBC, MDW, ABOG #### [address] [address] MCH (RBC) [Entitic mass] 28.6 pg Normal 27.0-31.2 [facility] ([place]) Comment on above: Performed By: #### A JANNA, PRO, TROPHS, ADIFF, ANSG, LAC, CBC, MDW, ABOG #### [address] [address] MCHC 33.4 G/dL Normal 33.0-37.0 [facility] ([place]) Comment on above: Performed By: #### A JANNA, PRO, TROPHS, ADIFF, ANSG, LAC, CBC, MDW, ABOG #### [address] [address] MCV (RBC) [Entitic vol] 85.4 fL Normal 80.0-94.0 [facility] ([place]) Comment on above: Performed By: #### A JANNA, PRO, TROPHS, ADIFF, ANSG, LAC, CBC, MDW, ABOG #### [address] [address] Platelet 294 10 3/mcL Normal 130-400 [facility] ([place]) Comment on above: Performed By: #### A JANNA, PRO, TROPHS, ADIFF, ANSG, LAC, CBC, MDW, ABOG #### [address] [address] Platelet mean volume (Bld) [Entitic vol] 8.4 fL Normal 7.4-10.4 [facility] ([place]) Comment on above: Performed By: #### A JANNA, PRO, TROPHS, ADIFF, ANSG, LAC, CBC, MDW, ABOG #### [address] [address] RBC 4.73 10 6/mcL Normal 4.20-5.40 [facility] ([place]) Comment on above: Performed By: #### A JANNA, PRO, TROPHS, ADIFF, ANSG, LAC, CBC, MDW, ABOG #### [address] [address] WBC 10.7 10 3/mcL Normal 4.6-10.8 [facility] ([place]) Comment on above: Performed By: #### A JANNA, PRO, TROPHS, ADIFF, ANSG, LAC, CBC, MDW, ABOG #### [address] [address] CMPon 07-28-2023 Albumin Level 3.2 G/dL Low 3.5-5.0 [facility] ([place]) Comment on above: Performed By: #### A JANNA, PRO, TROPHS, ADIFF, ANSG, LAC, CBC, MDW, ABOG #### [address] [address] Albumin/Globulin [Mass ratio] 1.0 {ratio} Low 1.1-2.5 [facility] ([place]) Comment on above: Performed By: #### A JANNA, PRO, TROPHS, ADIFF, ANSG, LAC, CBC, MDW, ABOG #### [address] [address] ALP [Catalytic activity/Vol] 87 U/L Normal 40-135 [facility] ([place]) Comment on above: Performed By: #### A JANNA, PRO, TROPHS, ADIFF, ANSG, LAC, CBC, MDW, ABOG #### [address] [address] ALT [Catalytic activity/Vol] 30 U/L Normal 14-59 [facility] ([place]) Comment on above: Performed By: #### A JANNA, PRO, TROPHS, ADIFF, ANSG, LAC, CBC, MDW, ABOG #### [address] [address] AST [Catalytic activity/Vol] 20 U/L Normal 10-40 [facility] ([place]) Comment on above: Performed By: #### A JANNA, PRO, TROPHS, ADIFF, ANSG, LAC, CBC, MDW, ABOG #### [address] [address] Bili Total 0.3 mg/dL Normal 0.2-1.0 [facility] ([place]) Comment on above: Result Comment: Use of this assay is not recommended for patients undergoing treatment with eltrombopag due to the potential for falsely elevated results. Performed By: #### A JANNA, PRO, TROPHS, ADIFF, ANSG, LAC, CBC, MDW, ABOG #### [address] [address] BUN/Creatinine Ratio 9 ratio Normal 7-27 [facility] [place]) Comment on above: Performed By: #### A JANNA, PRO, TROPHS, ADIFF, ANSG, LAC, CBC, MDW, ABOG #### [address] [address] Calcium [Mass/Vol] 8.3 mg/dL Low 8.4-10.2 [facility] ([place]) Comment on above: Performed By: #### A JANNA, PRO, TROPHS, ADIFF, ANSG, LAC, CBC, MDW, ABOG #### [address] [address] Chloride [Moles/Vol] 107 mmol/L Normal 98-107 [facility] [place] Comment on above: Performed By: #### A JANNA, PRO, TROPHS, ADIFF, ANSG, LAC, CBC, MDW, ABOG #### [address] [address] CO2 [Moles/Vol] 22 mmol/L Normal 22-29 [facility] ([place]) Comment on above: Performed By: #### A JANNA, PRO, TROPHS, ADIFF, ANSG, LAC, CBC, MDW, ABOG #### [address] [address] Creatinine [Mass/Vol] 0.77 mg/dL Normal 0.55-1.02 [facility] ([place]) Comment on above: Performed By: #### A JANNA, PRO, TROPHS, ADIFF, ANSG, LAC, CBC, MDW, ABOG #### [address] [address] Electrolyte Balance 13.0 mEq/L Normal 4.0-15.0 [facility] ([place]) Comment on above: Performed By: #### A JANNA, PRO, TROPHS, ADIFF, ANSG, LAC, CBC, MDW, ABOG #### [address] [address] Globulin 3.2 G/dL Normal [facility] ([place]) Comment on above: Performed By: #### A JANNA, PRO, TROPHS, ADIFF, ANSG, LAC, CBC, MDW, ABOG #### [address] [address] Glucose [Mass/Vol] 98 mg/dL Normal 70-105 [facility] ([place]) Comment on above: Performed By: #### A JANNA, PRO, TROPHS, ADIFF, ANSG, LAC, CBC, MDW, ABOG #### [address] [address] Potassium [Moles/Vol] 4.1 mmol/L Normal 3.5-5.1 [facility] ([place]) Comment on above: Performed By: #### A JANNA, PRO, TROPHS, ADIFF, ANSG, LAC, CBC, MDW, ABOG #### [address] [address] Sodium [Moles/Vol] 142 mmol/L Normal 136-145 [facility] ([place]) Comment on above: Performed By: #### A JANNA, PRO, TROPHS, ADIFF, ANSG, LAC, CBC, MDW, ABOG #### [address] [address] Total Protein 6.4 G/dL Normal 6.4-8.2 [facility] ([place]) Comment on above: Performed By: #### A JANNA, PRO, TROPHS, ADIFF, ANSG, LAC, CBC, MDW, ABOG #### [address] [address] Urea nitrogen [Mass/Vol] 7 mg/dL Normal 7-18 [facility] ([place]) Comment on above: Performed By: #### A JANNA, PRO, TROPHS, ADIFF, ANSG, LAC, CBC, MDW, ABOG #### [address] [address] Albumin Level 4.0 G/dL Normal 3.5-5.0 [facility] ([place]) Comment on above: Performed By: #### A JANNA, PRO, TROPHS, ADIFF, ANSG, LAC, CBC, MDW, ABOG #### [address] [address] Albumin/Globulin [Mass ratio] 1.0 {ratio} Low 1.1-2.5 [facility] ([place]) Comment on above: Performed By: #### A JANNA, PRO, TROPHS, ADIFF, ANSG, LAC, CBC, MDW, ABOG #### [address] [address] ALP [Catalytic activity/Vol] 104 U/L Normal 40-135 [facility] ([place]) Comment on above: Performed By: #### A JANNA, PRO, TROPHS, ADIFF, ANSG, LAC, CBC, MDW, ABOG #### [address] [address] ALT [Catalytic activity/Vol] 49 U/L Normal 14-59 [facility] ([place]) Comment on above: Performed By: #### A JANNA, PRO, TROPHS, ADIFF, ANSG, LAC, CBC, MDW, ABOG #### [address] [address] AST [Catalytic activity/Vol] 27 U/L Normal 10-40 [facility] ([place]) Comment on above: Performed By: #### A JANNA, PRO, TROPHS, ADIFF, ANSG, LAC, CBC, MDW, ABOG #### [address] [address] Bili Total 0.2 mg/dL Normal 0.2-1.0 [facility] ([place]) Comment on above: Result Comment: Use of this assay is not recommended for patients undergoing treatment with eltrombopag due to the potential for falsely elevated results. Performed By: #### A JANNA, PRO, TROPHS, ADIFF, ANSG, LAC, CBC, MDW, ABOG #### [address] [address] BUN/Creatinine Ratio 11 ratio Normal 7-27 [facility] [place] Comment on above: Performed By: #### A JANNA, PRO, TROPHS, ADIFF, ANSG, LAC, CBC, MDW, ABOG #### [address] [address] Calcium [Mass/Vol] 9.3 mg/dL Normal 8.4-10.2 [facility] ([place]) Comment on above: Performed By: #### A JANNA, PRO, TROPHS, ADIFF, ANSG, LAC, CBC, MDW, ABOG #### [place] [address] Chloride [Moles/Vol] 104 mmol/L Normal 98-107 [facility] [place] Comment on above: Performed By: #### A JANNA, PRO, TROPHS, ADIFF, ANSG, LAC, CBC, MDW, ABOG #### [address] [address] CO2 [Moles/Vol] 27 mmol/L Normal 22-29 [facility] ([place]) Comment on above: Performed By: #### A JANNA, PRO, TROPHS, ADIFF, ANSG, LAC, CBC, MDW, ABOG #### [address] [address] Creatinine [Mass/Vol] 0.90 mg/dL Normal 0.55-1.02 [facility] ([place]) Comment on above: Performed By: #### A JANNA, PRO, TROPHS, ADIFF, ANSG, LAC, CBC, MDW, ABOG #### [address] [address] Electrolyte Balance 7.0 mEq/L Normal 4.0-15.0 [facility] ([place]) Comment on above: Performed By: #### A JANNA, PRO, TROPHS, ADIFF, ANSG, LAC, CBC, MDW, ABOG #### [place] [address] Globulin 4.0 G/dL Normal [facility] ([place]) Comment on above: Performed By: #### A JANNA, PRO, TROPHS, ADIFF, ANSG, LAC, CBC, MDW, ABOG #### [address] [address] Glucose [Mass/Vol] 101 mg/dL Normal 70-105 [facility] ([place]) Comment on above: Performed By: #### A JANNA, PRO, TROPHS, ADIFF, ANSG, LAC, CBC, MDW, ABOG #### [address] [address] Potassium [Moles/Vol] 4.2 mmol/L Normal 3.5-5.1 [facility]) Comment on above: Performed By: #### A JANNA, PRO, TROPHS, ADIFF, ANSG, LAC, CBC, MDW, ABOG #### [address] [address] Sodium [Moles/Vol] 138 mmol/L Normal 136-145 [facility] ([place]) Comment on above: Performed By: #### A JANNA, PRO, TROPHS, ADIFF, ANSG, LAC, CBC, MDW, ABOG #### [address] [address] Total Protein 8.0 G/dL Normal 6.4-8.2 [facility]) Comment on above: Performed By: #### A JANNA, PRO, TROPHS, ADIFF, ANSG, LAC, CBC, MDW, ABOG #### [address] [address] Urea nitrogen [Mass/Vol] 10 mg/dL Normal 7-18 [facility] ([place]) Comment on above: Performed By: #### A JANNA, PRO, TROPHS, ADIFF, ANSG, LAC, CBC, MDW, ABOG #### [address] [address] CRPon 07-28-2023 C-Reactive Protein 1.3 mg/dL High 0.0-0.3 [facility]) Comment on above: Performed By: #### A JANNA, PRO, TROPHS, ADIFF, ANSG, LAC, CBC, MDW, ABOG #### [place] [id number] [place], [place] [address] CT ANGIOGRAPHY HEAD W/ CONTR Pro 07-28-2023 CT ANGIOGRAPHY HEAD W/ CONTRAST ORIGINAL EXAMINATION: CTA OF THE HEAD WITH CONTRAST 07/28/2023 12:51 am: TECHNIQUE: CTA of the head/brain was performed with the administration of intravenous contrast. Multiplanar reformatted images are provided for review. MIP images are provided for review. Automated exposure control, iterative reconstruction, and/or weight based adjustment of the mA/kV was utilized to reduce the radiation dose to as low as reasonably achievable. COMPARISON: CT head performed same day HISTORY: ORDERING SYSTEM PROVIDED HISTORY: Reason for Exam: Stroke Emergency FINDINGS: ANTERIOR CIRCULATION: No significant stenosis of the intracranial internal carotid, anterior cerebral, or middle cerebral arteries. No aneurysm. POSTERIOR CIRCULATION: No significant stenosis of the vertebral, basilar, or posterior cerebral arteries. No aneurysm. IMPRESSION: Unremarkable CTA of the head. Interpreted by: Vidal Smith Preliminary Report By: Vidal Smith Electronically signed By Vidal Smith Dictated Date: 07/28/2023 12:52:47 AM Prelim Date: 07/28/2023 12:57:06 AM Sign Date: 07/28/2023 12:57:06 AM Ordering Provider: CHIVO Street [facility] ([place]) CT ANGIOGRAPHY NECK W/CONTRA SToespinoza 07-28-2023 CT ANGIOGRAPHY NECK W/CONTRAST ORIGINAL EXAMINATION: CTA OF THE NECK 07/28/2023 12:36 am TECHNIQUE: CTA of the neck was performed with the administration of intravenous contrast. Multiplanar reformatted images are provided for review. MIP images are provided for review. Stenosis of the internal carotid arteries measured using NASCET criteria. Automated exposure control, iterative reconstruction, and/or weight based adjustment of the mA/kV was utilized to reduce the radiation dose to as low as reasonably achievable. COMPARISON: None. HISTORY: ORDERING SYSTEM PROVIDED HISTORY: Reason for Exam: Stroke Emergency FINDINGS: AORTIC ARCH/ARCH VESSELS: No dissection or arterial injury. No significant stenosis of the brachiocephalic or subclavian arteries. CAROTID ARTERIES: No dissection, arterial injury, or hemodynamically significant stenosis by NASCET criteria. VERTEBRAL ARTERIES: Co dominant and mildly tortuous. No dissection, arterial injury, or significant stenosis. SOFT TISSUES: The lung apices are clear. There are prominent right greater than left cervical chain lymph nodes, however not pathologically enlarged, nonspecific. The larynx and pharynx are unremarkable. No acute abnormality of the salivary and thyroid glands. BONES: No acute osseous abnormality. IMPRESSION: Patent CTA of the neck with no significant abnormality. Interpreted by: Atif Casillas Preliminary Report By: Atif Casillas Electronically signed By Atif Casillas Dictated Date: 07/28/2023 12:38:30 AM Prelim Date: 07/28/2023 12:41:55 AM Sign Date: 07/28/2023 12:41:55 AM Ordering Provider: CHIVO THOMPSON [facility] ([place]) CT HEAD OR BRAIN W/O CONTRAS Ton 07-28-2023 CT HEAD OR BRAIN W/O CONTRAST ORIGINAL EXAMINATION: CT OF THE HEAD WITHOUT CONTRAST 07/28/2023 12:04 am TECHNIQUE: CT of the head was performed without the administration of intravenous contrast. Automated exposure control, iterative reconstruction, and/or weight based adjustment of the mA/kV was utilized to reduce the radiation dose to as low as reasonably achievable. COMPARISON: None. HISTORY: ORDERING SYSTEM PROVIDED HISTORY: Reason for Exam: VISION CHANGES, MEMORY PROBLEMS, PATIENT STATES SHE FEELS DRUGGED. change in mental status/weakness/aphasia FINDINGS: BRAIN/VENTRICLES: There is no acute intracranial hemorrhage, mass effect or midline shift. No abnormal extra-axial fluid collection. The waddell-white differentiation is maintained without evidence of an acute infarct. There is no evidence of hydrocephalus. ORBITS: The visualized portion of the orbits demonstrate no acute abnormality. Nonspecific mild tortuosity to the optic nerves. SINUSES: The visualized paranasal sinuses and mastoid air cells demonstrate no acute abnormality. SOFT TISSUES/SKULL: No acute abnormality of the visualized skull or soft tissues. IMPRESSION: No acute intracranial abnormality. Findings were discussed with Dr. Thompson at 12:10 a.m. on 07/28/2023. I have personally reviewed the images of this examination and agree with the resident's findings and interpretation. Interpreted by: Vidal Smith Preliminary Report By: Brandi Avila Electronically signed By Vidal Smith Dictated Date: 07/28/2023 12:06:34 AM Prelim Date: 07/28/2023 12:11:40 AM Sign Date: 07/28/2023 12:27:10 AM Ordering Provider: CHIVO Street [facility] ([place]) FT4on 07-28-2023 Free T4 [Mass/Vol] 1.03 ng/dL Normal 0.76-1.46 [facility] ([place]) Comment on above: Performed By: #### A JANNA, PRO, TROPHS, ADIFF, ANSG, LAC, CBC, MDW, ABOG #### [address] [address] Gel ABOon 07-28-2023 ABO/Rh Interp Positive Invalid Interpretation Code [facility]) Comment on above: Performed By: #### A JANNA, PRO, TROPHS, ADIFF, ANSG, LAC, CBC, MDW, ABOG #### [place] [id number] [place], [place] [address] Gel ABSon 07-28-2023 Antibody Screen Gel Negative Normal [facility]) Comment on above: Performed By: #### A JANNA, PRO, TROPHS, ADIFF, ANSG, LAC, CBC, MDW, ABOG #### [address] [address] LABORATORYOrdered By: SYSTEM SYSTEM on 07-28-2023 Albumin BCP dye [Mass/Vol] 3.2 G/dL Invalid Interpretation Code 3.5 - 5.0 G/dL AO ADM SS Albumin/Globulin [Mass ratio] 1.0 {ratio} Invalid Interpretation Code 1.1 - 2.5 ratio AO ADM SS ALP [Catalytic activity/Vol] 87 U/L Invalid Interpretation Code 40 - 135 U/L AO ADM SS ALT With P-5'-P [Catalytic activity/Vol] 30 U/L Invalid Interpretation Code 14 - 59 U/L AO ADM SS AST With P-5'-P [Catalytic activity/Vol] 20 U/L Invalid Interpretation Code 10 - 40 U/L AO ADM SS Basophil, Absolute 0.1 103/mcL Invalid Interpretation Code 0.0 - 0.2 10^3/mcL AO Workflow SS Basophils/100 WBC (Bld) 0.7 % Invalid Interpretation Code 0.0 - 2.5 % AO Workflow SS Bilirubin [Mass/Vol] 0.3 mg/dL Invalid Interpretation Code 0.2 - 1.0 mg/dL AO ADM SS Comment on above: Interpretive Data: U se of this assay is not recommended for patients undergoing treatment with eltrombopag due to the potential for falsely elevated results. Calcium [Mass/Vol] 8.3 mg/dL Invalid Interpretation Code 8.4 - 10.2 mg/dL AO ADM SS Chloride [Moles/Vol] 107 mmol/L Invalid Interpretation Code 98 - 107 mmol/L AO ADM SS CO2 [Moles/Vol] 22 mmol/L Invalid Interpretation Code 22 - 29 mmol/L AO ADM SS Creatinine [Mass/Vol] 0.77 mg/dL Invalid Interpretation Code 0.55 - 1.02 mg/dL AO ADM SS Electrolyte Balance 13.0 mEq/L Invalid Interpretation Code 4.0 - 15.0 mEq/L AO ADM SS Eosinophil, Absolute 0.3 103/mcL Invalid Interpretation Code 0.0 - 0.4 10^3/mcL AO Workflow SS Eosinophils/100 WBC (Bld) 3.0 % Invalid Interpretation Code 0.0 - 7.0 % AO Workflow SS Erythrocyte distribution width (RBC) [Ratio] 13.8 % Invalid Interpretation Code 11.5 - 14.5 % AO Workflow SS Free T4 [Mass/Vol] 1.03 ng/dL Invalid Interpretation Code 0.76 - 1.46 ng/dL AO ADM SS GFR/1.73 sq M.predicted among blacks MDRD (S/P/Bld) [Vol rate/Area] 104 ml/min/1.73sqm Invalid Interpretation Code AO Chemistry S Comment on above: Interpretive Data: GFR Population mean for , Non- Americans Ages 20-29 = 116 mL/min/1.73 sq.m. Ages 30-39 = 107 mL/min/1.73 sq.m. Ages 40-49 = 99 mL/min/1.73 sq.m. Ages 50-59 = 93 mL/min/1.73 sq.m. Ages 60-69 = 85 mL/min/1.73 sq.m. Ages 70+ = 75 mL/min/1.73 sq.m. Chronic Kidney Disease: Less than 60 mL/min/1.73 square meters End Stage Renal Disease: Less than 15 mL/min/1.73 square meters GFR/1.73 sq M.predicted among non-blacks MDRD (S/P/Bld) [Vol rate/Area] 86 ml/min/1.73sqm Invalid Interpretation Code AO Chemistry S Comment on above: Interpretive Data: GFR Population mean for , Non- Americans Ages 20-29 = 116 mL/min/1.73 sq.m. Ages 30-39 = 107 mL/min/1.73 sq.m. Ages 40-49 = 99 mL/min/1.73 sq.m. Ages 50-59 = 93 mL/min/1.73 sq.m. Ages 60-69 = 85 mL/min/1.73 sq.m. Ages 70+ = 75 mL/min/1.73 sq.m. Chronic Kidney Disease: Less than 60 mL/min/1.73 square meters End Stage Renal Disease: Less than 15 mL/min/1.73 square meters Globulin 3.2 G/dL Invalid Interpretation Code AO ADM SS Glucose [Mass/Vol] 98 mg/dL Invalid Interpretation Code 70 - 105 mg/dL AO ADM SS Hematocrit (Bld) [Volume fraction] 33.3 % Invalid Interpretation Code 37.0 - 47.0 % AO Workflow SS Hemoglobin (Bld) [Mass/Vol] 11.3 G/dL Invalid Interpretation Code 12.0 - 16.0 G/dL AO Workflow SS Lymphocyte, Absolute 2.3 103/mcL Invalid Interpretation Code 0.8 - 3.9 10^3/mcL AO Workflow SS Lymphocytes/100 WBC (Bld) 26.0 % Invalid Interpretation Code 10.0 - 50.0 % AO Workflow SS Magnesium [Mass/Vol] 1.9 mg/dL Invalid Interpretation Code 1.8 - 2.4 mg/dL AO ADM SS MCH (RBC) [Entitic mass] 28.8 pg Invalid Interpretation Code 27.0 - 31.2 pg AO Workflow SS MCHC 33.9 G/dL Invalid Interpretation Code 33.0 - 37.0 G/dL AO Workflow SS MCV (RBC) [Entitic vol] 84.9 fL Invalid Interpretation Code 80.0 - 94.0 fL AO Workflow SS Monocyte, Absolute 0.5 103/mcL Invalid Interpretation Code 0.2 - 1.0 10^3/mcL AO Workflow SS Monocytes/100 WBC (Bld) 5.2 % Invalid Interpretation Code 1.7 - 13.0 % AO Workflow SS Neutrophil, Absolute 5.7 103/mcL Invalid Interpretation Code 2.9 - 6.2 10^3/mcL AO Workflow SS Neutrophils/100 WBC (Bld) 65.1 % Invalid Interpretation Code 37.0 - 80.0 % AO Workflow SS Platelet mean volume (Bld) [Entitic vol] 8.6 fL Invalid Interpretation Code 7.4 - 10.4 fL AO Workflow SS Platelets (Bld) [#/Vol] 233 103/mcL Invalid Interpretation Code 130 - 400 10^3/mcL AO Workflow SS Potassium [Moles/Vol] 4.1 mmol/L Invalid Interpretation Code 3.5 - 5.1 mmol/L AO ADM SS Protein [Mass/Vol] 6.4 G/dL Invalid Interpretation Code 6.4 - 8.2 G/dL AO ADM SS RBC (Bld) [#/Vol] 3.92 106/mcL Invalid Interpretation Code 4.20 - 5.40 10^6/mcL AO Workflow SS Sodium [Moles/Vol] 142 mmol/L Invalid Interpretation Code 136 - 145 mmol/L AO ADM SS T3 [Mass/Vol] 129 ng/dL Invalid Interpretation Code 60 - 181 ng/dL AH ADM SS T4 [Mass/Vol] 10.7 ug/dL Invalid Interpretation Code 4.5 - 10.9 mcg/dL AH ADM SS Comment on above: Interpretive Data: * *Note - New Reference Range in effect 20 TSH Qn 4.29 m[IU]/L Invalid Interpretation Code 0.36 - 3.74 mcIU/mL AO ADM SS Urea nitrogen [Mass/Vol] 7 mg/dL Invalid Interpretation Code 7 - 18 mg/dL AO ADM SS Urea nitrogen/Creatinine [Mass ratio] 9 ratio Invalid Interpretation Code ratio AO ADM SS WBC (Bld) [#/Vol] 8.8 103/mcL Invalid Interpretation Code 4.6 - 10.8 10^3/mcL AO Workflow SS LACon 07-28-2023 Lactic Acid Lvl 0.5 mmol/L Normal 0.4-2.0 [facility] Comment on above: Performed By: #### A JANNA, PRO, TROPHS, ADIFF, ANSG, LAC, CBC, MDW, ABOG #### [address] [address] MGon 07-28-2023 Magnesium [Mass/Vol] 1.9 mg/dL Normal 1.8-2.4 [facility] ([place]) Comment on above: Performed By: #### A JANNA, PRO, TROPHS, ADIFF, ANSG, LAC, CBC, MDW, ABOG #### [place] [id number] [place], [place] [address] Magnesium [Mass/Vol] 2.0 mg/dL Normal 1.8-2.4 [facility] ([place]) Comment on above: Performed By: #### A JANNA, PRO, TROPHS, ADIFF, ANSG, LAC, CBC, MDW, ABOG #### [place] [address] [place], [place] [address] MRI BRAIN W/O CONTRASTon MRI BRAIN W/O CONTRAST ORIGINAL HISTORY: TIA COMPARISON: Previous day TECHNIQUE: 1. Sagittal T1-weighted images. 2. Axial T2-weighted and T2*-weighted images. 3. Axial FLAIR images. 4. Axial diffusion-weighted images with ADC map. FINDINGS: The ventricles and sulci are normal in size and configuration. There are no abnormal intra or extra-axial fluid collections. Waddell-white matter differentiation is maintained. There is no abnormal restriction of diffusion. The orbital contents are normal in appearance. There is mild ethmoid and frontal sinus disease. IMPRESSION: Normal examination of the brain Interpreted by: Diego Paul MD Preliminary Report By: Diego Paul MD Electronically signed By iDego Paul MD Dictated Date: 07/28/2023 9:11:13 AM Prelim Date: 07/28/2023 9:12:59 AM Sign Date: 07/28/2023 9:12:59 AM Ordering Provider: CRONELIA CHURCH Normal [facility] ([place]) PREGUon 07-28-2023 HCG ( test) Ql (U) Negative Normal [facility] ([place]) Comment on above: Performed By: #### P REGU #### [place] [address] [place], [place] [address] test (u) int Not detected Invalid Interpretation Code [facility] ([place]) Comment on above: Performed By: #### P REGU #### [address] [address] PROon 07-28-2023 PT Coag (PPP) [Time] 12.0 s Normal 9.0-14.2 [facility] ([place]) Comment on above: Performed By: #### A JANNA, PRO, TROPHS, ADIFF, ANSG, LAC, CBC, MDW, ABOG #### [address] [address] PT International Ratio 1.0 Normal [facility] ([place]) Comment on above: Result Comment: [employer] (CHEST, 1992, 102:312S-25S) recommended therapeutic range for oral anticoagulant therapy is: LOW RISK: Prophylaxis of venous thrombosis INR: 2.0-3.0 Treatment of pulmonary embolism 2.0-3.0 Prevention of systemic embolism 2.0-3.0 HIGH RISK: Mechanical prosthetic valves 2.5-3.5 Performed By: #### A JANNA, PRO, TROPHS, ADIFF, ANSG, LAC, CBC, MDW, ABOG #### [address] [address] T3on 07-28-2023 Total T3 129 ng/dL Normal 60-181 [facility] ([place]) Comment on above: Performed By: #### A JANNA, PRO, TROPHS, ADIFF, ANSG, LAC, CBC, MDW, ABOG #### [address] [address] T4on 07-28-2023 T4 [Mass/Vol] 10.7 ug/dL Normal 4.5-10.9 [facility] ([place]) Comment on above: Result Comment: No te - New Reference Range in effect 20 Performed By: #### A JANNA, PRO, TROPHS, ADIFF, ANSG, LAC, CBC, MDW, ABOG #### [address] [address] TROPHSon 07-28-2023 Troponin I High Sensitivity 4.0 ng/L Normal 0.0-51.4 [facility] ([place]) Comment on above: Performed By: #### A JANNA, PRO, TROPHS, ADIFF, ANSG, LAC, CBC, MDW, ABOG #### [place] [address] TSHon 07-28-2023 TSH Qn 4.29 m[IU]/L High 0.36-3.74 [facility] ([place]) Comment on above: Performed By: #### A JANNA, PRO, TROPHS, ADIFF, ANSG, LAC, CBC, MDW, ABOG #### [place] [address] TSH Qn 4.67 m[IU]/L High 0.36-3.74 [facility] ([place]) Comment on above: Performed By: #### A JANNA, PRO, TROPHS, ADIFF, ANSG, LAC, CBC, MDW, ABOG #### [place] [address] UAon 07-28-2023 Color (U) Yellow Normal [facility] ([place]) Comment on above: Performed By: #### A JANNA, PRO, TROPHS, ADIFF, ANSG, LAC, CBC, MDW, ABOG #### [place] [address] Glucose (U) [Mass/Vol] Negative Normal Negative [facility] ([place]) Comment on above: Performed By: #### A JANNA, PRO, TROPHS, ADIFF, ANSG, LAC, CBC, MDW, ABOG #### [place] [address] Ketones Ql (U) Negative Normal Negative [facility] ([place]) Comment on above: Performed By: #### A JANNA, PRO, TROPHS, ADIFF, ANSG, LAC, CBC, MDW, ABOG #### [place] [address] UA Appear Clear Normal Clear [facility] ([place]) Comment on above: Performed By: #### A JANNA, PRO, TROPHS, ADIFF, ANSG, LAC, CBC, MDW, ABOG #### [address] [address] UA Blood Trace Abnormal Negative [facility] ([place]) Comment on above: Performed By: #### A JANNA, PRO, TROPHS, ADIFF, ANSG, LAC, CBC, MDW, ABOG #### [address] [address] UA Leuk Est Negative Normal Negative [facility] ([place]) Comment on above: Performed By: #### A JANNA, PRO, TROPHS, ADIFF, ANSG, LAC, CBC, MDW, ABOG #### [address] [address] UA Nitrite Negative Normal Negative [facility] ([place]) Comment on above: Performed By: #### A JANNA, PRO, TROPHS, ADIFF, ANSG, LAC, CBC, MDW, ABOG #### [place] [address] UA pH 6.0 Normal 5.0 - 8.0 [facility] ([place]) Comment on above: Performed By: #### A JANNA, PRO, TROPHS, ADIFF, ANSG, LAC, CBC, MDW, ABOG #### [place] [address] UA Protein Negative Normal Negative [facility] ([place]) Comment on above: Performed By: #### A JANNA, PRO, TROPHS, ADIFF, ANSG, LAC, CBC, MDW, ABOG #### [place] [address] UA Spec Grav 1.010 Abnormal 1.015-1.025 [facility] ([place]) Comment on above: Performed By: #### A JANNA, PRO, TROPHS, ADIFF, ANSG, LAC, CBC, MDW, ABOG #### [place] [address] UA Specimen Type Clean Catch Normal [facility] ([place]) Comment on above: Performed By: #### A JANNA, PRO, TROPHS, ADIFF, ANSG, LAC, CBC, MDW, ABOG #### [address] [address] UA Urobilinogen 0.2 E.U./dL Normal 0.2-1.0 [facility] ([place]) Comment on above: Performed By: #### A JANNA, PRO, TROPHS, ADIFF, ANSG, LAC, CBC, MDW, ABOG #### [place] [id number] [place], [place] [address] Urobilinogen (U) [Mass/Vol] Negative Normal Negative [facility] ([place]) Comment on above: Performed By: #### A JANNA, PRO, TROPHS, ADIFF, ANSG, LAC, CBC, MDW, ABOG #### [address] [address] XR CHEST 1 VIEWon 07-28-2023 XR CHEST 1 VIEW ORIGINAL EXAMINATION: ONE XRAY VIEW OF THE CHEST 07/28/2023 12:49 am COMPARISON: None HISTORY: ORDERING SYSTEM PROVIDED HISTORY: Reason for Exam: chest pain/SOB FINDINGS: The cardiomediastinal silhouette is within normal limits. No consolidation, pleural effusion, vascular congestion or pneumothorax. No acute osseous abnormality. IMPRESSION: No acute radiographic process. I have personally reviewed the images of this examination, and agree with the resident's findings and interpretation. Interpreted by: Eduard Velazquez MD Preliminary Report By: Brandi Avila Electronically signed By Eduard Velazquez MD Dictated Date: 07/28/2023 12:52:04 AM Prelim Date: 07/28/2023 12:53:39 AM Sign Date: 07/28/2023 12:54:31 AM Ordering Provider: CHIVO Street [facility] ([place]) LABORATORYOrdered By: Tyrone Rios on 07-27-2023 Glucose [Mass/Vol] 102 mg/dL Invalid Interpretation Code 70 - 110 mg/dL [facility] LABORATORYOrdered By: Daniela Rapp on 07-27-2023 ABO/Rh Interp Positive Invalid Interpretation Code AO BB SS Antibody Screen Gel Negative ABSC (07/27/23 11:54 PM) Invalid Interpretation Code AO BB SS Appearance (U) Clear (07/27/23 11:54 PM) Invalid Interpretation Code Clear AO Auto Urine SS aPTT Coag (PPP) [Time] 29.6 s Invalid Interpretation Code 25.0 - 35.0 seconds AO [facility] SS Comment on above: Interpretive Data: F or Heparin anticoagulation therapy, the recommended therapeutic range is: 50.6-87.4 seconds. Patients on heparin therapy may have an extreme result. Bilirubin Ql (U) Negative (07/27/23 11:54 PM) Invalid Interpretation Code Negative AO Auto Urine SS Color (U) Yellow (07/27/23 11:54 PM) Invalid Interpretation Code AO Auto Urine SS Glucose Test strip (U) [Mass/Vol] Negative Invalid Interpretation Code Negative AO Auto Urine SS HCG ( test) Ql Negative (07/27/23 11:54 PM) Invalid Interpretation Code AO Manual Urine SS Hemoglobin Auto test strip (U) [Mass/Vol] Trace *ABN* (07/27/23 11:54 PM) Invalid Interpretation Code Negative AO Auto Urine SS Heparin dose (APTT) None Invalid Interpretation Code AO Coagulation S INR Coag (PPP) [Relative time] 1.0 {INR} Invalid Interpretation Code AO [facility] SS Comment on above: Interpretive Data: [employer] (CHEST, 1992, 102:312S-25S) recommended therapeutic range for oral anticoagulant therapy is: LOW RISK: Prophylaxis of venous thrombosis INR: 2.0-3.0 Treatment of pulmonary embolism 2.0-3.0 Prevention of systemic embolism 2.0-3.0 HIGH RISK: Mechanical prosthetic valves 2.5-3.5 Ketones Ql (U) Negative Invalid Interpretation Code Negative AO Auto Urine SS test (u) int Not detected Invalid Interpretation Code AO Manual Urine SS PT Coag (PPP) [Time] 12.0 s Invalid Interpretation Code 9.0 - 14.2 seconds AO [facility] SS UA Leuk Est Negative (07/27/23 11:54 PM) Invalid Interpretation Code Negative AO Auto Urine SS UA Nitrite Negative (07/27/23 11:54 PM) Invalid Interpretation Code Negative AO Auto Urine SS UA pH 6.0 (07/27/23 11:54 PM) Invalid Interpretation Code 5.0 - 8.0 AO Auto Urine SS UA Protein Negative Invalid Interpretation Code Negative AO Auto Urine SS UA Spec Grav 1.010 *ABN* (07/27/23 11:54 PM) Invalid Interpretation Code 1.015-1.025 AO Auto Urine SS UA Specimen Type Clean Catch (07/27/23 11:54 PM) Invalid Interpretation Code AO Auto Urine SS UA Urobilinogen 0.2 E.U./dL Invalid Interpretation Code 0.2-1.0 AO Auto Urine SS LABORATORYOrdered By: SYSTEM SYSTEM on 07-27-2023 Albumin BCP dye [Mass/Vol] 4.0 G/dL Invalid Interpretation Code 3.5 - 5.0 G/dL AO ADM SS Albumin/Globulin [Mass ratio] 1.0 {ratio} Invalid Interpretation Code 1.1 - 2.5 ratio AO ADM SS ALP [Catalytic activity/Vol] 104 U/L Invalid Interpretation Code 40 - 135 U/L AO ADM SS ALT With P-5'-P [Catalytic activity/Vol] 49 U/L Invalid Interpretation Code 14 - 59 U/L AO ADM SS AST With P-5'-P [Catalytic activity/Vol] 27 U/L Invalid Interpretation Code 10 - 40 U/L AO ADM SS Basophil, Absolute 0.1 103/mcL Invalid Interpretation Code 0.0 - 0.2 10^3/mcL AO Workflow SS Basophils/100 WBC (Bld) 0.8 % Invalid Interpretation Code 0.0 - 2.5 % AO Workflow SS Bilirubin [Mass/Vol] 0.2 mg/dL Invalid Interpretation Code 0.2 - 1.0 mg/dL AO ADM SS Comment on above: Interpretive Data: U se of this assay is not recommended for patients undergoing treatment with eltrombopag due to the potential for falsely elevated results. Calcium [Mass/Vol] 9.3 mg/dL Invalid Interpretation Code 8.4 - 10.2 mg/dL AO ADM SS Chloride [Moles/Vol] 104 mmol/L Invalid Interpretation Code 98 - 107 mmol/L AO ADM SS CO2 [Moles/Vol] 27 mmol/L Invalid Interpretation Code 22 - 29 mmol/L AO ADM SS Creatinine [Mass/Vol] 0.90 mg/dL Invalid Interpretation Code 0.55 - 1.02 mg/dL AO ADM SS CRP [Mass/Vol] 1.3 mg/dL Invalid Interpretation Code 0.0 - 0.3 mg/dL AO ADM SS Electrolyte Balance 7.0 mEq/L Invalid Interpretation Code 4.0 - 15.0 mEq/L AO ADM SS Eosinophil, Absolute 0.3 103/mcL Invalid Interpretation Code 0.0 - 0.4 10^3/mcL AO Workflow SS Eosinophils/100 WBC (Bld) 2.4 % Invalid Interpretation Code 0.0 - 7.0 % AO Workflow SS Erythrocyte distribution width (RBC) [Ratio] 14.3 % Invalid Interpretation Code 11.5 - 14.5 % AO Workflow SS GFR/1.73 sq M.predicted among blacks MDRD (S/P/Bld) [Vol rate/Area] 87 ml/min/1.73sqm Invalid Interpretation Code AO Chemistry S Comment on above: Interpretive Data: GFR Population mean for , Non- Americans Ages 20-29 = 116 mL/min/1.73 sq.m. Ages 30-39 = 107 mL/min/1.73 sq.m. Ages 40-49 = 99 mL/min/1.73 sq.m. Ages 50-59 = 93 mL/min/1.73 sq.m. Ages 60-69 = 85 mL/min/1.73 sq.m. Ages 70+ = 75 mL/min/1.73 sq.m. Chronic Kidney Disease: Less than 60 mL/min/1.73 square meters End Stage Renal Disease: Less than 15 mL/min/1.73 square meters GFR/1.73 sq M.predicted among non-blacks MDRD (S/P/Bld) [Vol rate/Area] 72 ml/min/1.73sqm Invalid Interpretation Code AO Chemistry S Comment on above: Interpretive Data: GFR Population mean for , Non- Americans Ages 20-29 = 116 mL/min/1.73 sq.m. Ages 30-39 = 107 mL/min/1.73 sq.m. Ages 40-49 = 99 mL/min/1.73 sq.m. Ages 50-59 = 93 mL/min/1.73 sq.m. Ages 60-69 = 85 mL/min/1.73 sq.m. Ages 70+ = 75 mL/min/1.73 sq.m. Chronic Kidney Disease: Less than 60 mL/min/1.73 square meters End Stage Renal Disease: Less than 15 mL/min/1.73 square meters Globulin 4.0 G/dL Invalid Interpretation Code AO ADM SS Glucose [Mass/Vol] 101 mg/dL Invalid Interpretation Code 70 - 105 mg/dL AO ADM SS Hematocrit (Bld) [Volume fraction] 40.4 % Invalid Interpretation Code 37.0 - 47.0 % AO Workflow SS Hemoglobin (Bld) [Mass/Vol] 13.5 G/dL Invalid Interpretation Code 12.0 - 16.0 G/dL AO Workflow SS Lactate [Moles/Vol] 0.5 mmol/L Invalid Interpretation Code 0.4 - 2.0 mmol/L AO ADM SS Lymphocyte, Absolute 2.2 103/mcL Invalid Interpretation Code 0.8 - 3.9 10^3/mcL AO Workflow SS Lymphocytes/100 WBC (Bld) 20.6 % Invalid Interpretation Code 10.0 - 50.0 % AO Workflow SS Magnesium [Mass/Vol] 2.0 mg/dL Invalid Interpretation Code 1.8 - 2.4 mg/dL AO ADM SS MCH (RBC) [Entitic mass] 28.6 pg Invalid Interpretation Code 27.0 - 31.2 pg AO Workflow SS MCHC 33.4 G/dL Invalid Interpretation Code 33.0 - 37.0 G/dL AO Workflow SS MCV (RBC) [Entitic vol] 85.4 fL Invalid Interpretation Code 80.0 - 94.0 fL AO Workflow SS Monocyte distribution width Auto (Bld) [Entitic vol] 19.03 1 Invalid Interpretation Code 0.00 - 20.00 AO Workflow SS Comment on above: Result Comment: For ED adult patients suspected of sepsis, MDW<=20.0 does not rule out sepsis or risk of sepsis Monocyte, Absolute 0.5 103/mcL Invalid Interpretation Code 0.2 - 1.0 10^3/mcL AO Workflow SS Monocytes/100 WBC (Bld) 5.0 % Invalid Interpretation Code 1.7 - 13.0 % AO Workflow SS Neutrophil, Absolute 7.6 103/mcL Invalid Interpretation Code 2.9 - 6.2 10^3/mcL AO Workflow SS Neutrophils/100 WBC (Bld) 71.2 % Invalid Interpretation Code 37.0 - 80.0 % AO Workflow SS Platelet mean volume (Bld) [Entitic vol] 8.4 fL Invalid Interpretation Code 7.4 - 10.4 fL AO Workflow SS Platelets (Bld) [#/Vol] 294 103/mcL Invalid Interpretation Code 130 - 400 10^3/mcL AO Workflow SS Potassium [Moles/Vol] 4.2 mmol/L Invalid Interpretation Code 3.5 - 5.1 mmol/L AO ADM SS Protein [Mass/Vol] 8.0 G/dL Invalid Interpretation Code 6.4 - 8.2 G/dL AO ADM SS RBC (Bld) [#/Vol] 4.73 106/mcL Invalid Interpretation Code 4.20 - 5.40 10^6/mcL AO Workflow SS Sodium [Moles/Vol] 138 mmol/L Invalid Interpretation Code 136 - 145 mmol/L AO ADM SS Troponin I.cardiac DL <= 0.01 ng/mL [Mass/Vol] 4.0 ng/L Invalid Interpretation Code 0.0 - 51.4 ng/L AO ADM SS TSH Qn 4.67 m[IU]/L Invalid Interpretation Code 0.36 - 3.74 mcIU/mL AO ADM SS Urea nitrogen [Mass/Vol] 10 mg/dL Invalid Interpretation Code 7 - 18 mg/dL AO ADM SS Urea nitrogen/Creatinine [Mass ratio] 11 ratio Invalid Interpretation Code 7 - 27 ratio AO ADM SS WBC (Bld) [#/Vol] 10.7 103/mcL Invalid Interpretation Code 4.6 - 10.8 10^3/mcL AO Workflow SS FT4on 04-07-2023 Free T4 [Mass/Vol] 1.07 ng/dL Normal 0.76-1.46 [facility] ([place]) Comment on above: Performed By: #### A JANNA, PRO, TROPHS, ADIFF, ANSG, LAC, CBC, MDW, ABOG #### [address] [address] LABORATORYOrdered By: SYSTEM SYSTEM on 04-07-2023 Free T4 [Mass/Vol] 1.07 ng/dL Invalid Interpretation Code 0.76 - 1.46 ng/dL AO ADM SS TSH Qn 2.87 m[IU]/L Invalid Interpretation Code 0.36 - 3.74 mcIU/mL AO ADM SS TSHon 04-07-2023 TSH Qn 2.87 m[IU]/L Normal 0.36-3.74 [facility] ([place]) Comment on above: Performed By: #### A JANNA, PRO, TROPHS, ADIFF, ANSG, LAC, CBC, MDW, ABOG #### [address] [address] CNOVon 03-06-2023 CNOV Office Visit (UCWSTR ) JUANJOSE RENE ([id number]) 1990 F Date Time Provider Department 03/06/23 1:30 PM FABIO VANN [facility] During your visit today, we recorded the following information about you: Temperature Pulse Respiration Blood pressure 97.9 degrees 76/minute 16/minute 118/80 Weight 111.1 kg Fabio Vann, [employer]ESS[employer].BLOCK CLE[employer]ER 03/06/2023 1:40 PM Signed Subjective HPI Nontoxic-appearing female presents urgent care chief complaint nasal congestion and cough. Duration of symptoms 2 days. Associated symptoms nasal congestion cough loss of voice. Sick contacts children similar signs symptoms. No OTC medication use. No significant pain. States throat is slightly scratchy. History of strep this does not feel similar. Denies any fever body aches chills productive cough chest pain shortness of breath pleuritic pain hemoptysis nausea vomiting abdominal pain change in bowel or bladder habits. Past medical history prescription medication use and allergies reviewed. .Patient presents with: Nasal Congestion: With cough and lost voice x 2 days PAST MEDICAL HISTORY Diagnosis Date Anemia, unspecified Atypical squamous cells cannot exclude high grade squamous intraepithelial lesion on cytologic smear of cervix (ASC-H) 06/02/2021 Chronic cholecystitis Depression depression/anxiety, on treatment in past, took herself off Dysthymic disorder Depression (non-psychotic) Gestational diabetes mellitus, class A1 07/14/2015 Gestational diabetes mellitus, class A1 07/14/2015 Monster's thyroiditis Monster's thyroiditis Hypoglycemia, unspecified Infertility, female not officially diagnosed; took 5 years to get Migraine, unspecified, with intractable migraine, so stated, without mention of status migrainosus Migraine Ovarian cyst Ruptured PAST SURGICAL HISTORY Procedure Laterality Date EXTRACTION, ERUPTED TOOTH OR EXPOSED ROOT (ELEVATION AND/OR FORCEPS REMOVAL) 01/17/2008 wisdom teeth INSERTION OF IUD 03/04/2017 LAPS SURG CHOLECYSTECTOMY W/CHOLANGIOGRAPHY 02/09/08 ALLERGIES Onions [Other] MEDICATIONS levonorgestrel (MIRENA) 20 mcg/24 hr (5 years) IUD Inserted in office ACETAMINOPHEN (TYLENOL ORAL) Take by mouth. prn Orlistat 60 mg capsule Take 1 capsule by mouth three times daily with meals. (Patient not taking: Reported on 03/06/2023) FAMILY HISTORY Problem Relation Age of Onset Thyroid Mother Grave's disease Cancer Mother colon; spread to liver Diabetes Father Emphysema Father Heart Father Hypertension Father Lipids Father Thyroid Sister Breast Cancer Maternal Grandmother Cancer Maternal Grandfather LYMPHOMA Diabetes Paternal Grandfather Heart Paternal Grandfather Hypertension Paternal Grandfather Lipids Paternal Grandfather Psychiatry Maternal Aunt DEPRESSION Social History Tobacco Use Smoking status: Former Types: Cigarettes Quit date: 07/23/2008 Years since quittin.6 Smokeless tobacco: Never Tobacco comments: she smoked for 6 months only Vaping Use Vaping Use: Never used Substance Use Topics Alcohol use: Yes Comment: socially; not while Drug use: No BP 118/80 Pulse 76 Temp 36.6 ?C (97.9 ?F) Resp 16 Wt 111.1 kg (245 lb) LMP 05/11/2015 SpO2 98% BMI 38.37 kg/m? Review of Systems Constitutional: Negative for chills, fever and malaise/fatigue. HENT: Positive for congestion and sore throat. Negative for ear discharge, ear pain and sinus pain. Eyes: Negative for blurred vision, pain, discharge and redness. Respiratory: Positive for cough. Negative for hemoptysis, sputum production, shortness of breath, wheezing and stridor. Cardiovascular: Negative for chest pain. Gastrointestinal: Negative for abdominal pain, diarrhea, nausea and vomiting. Musculoskeletal: Negative for myalgias. Skin: Negative for itching and rash. Neurological: Negative for dizziness and headaches. Objective Physical Exam Constitutional: General: She is not in acute distress. Appearance: She is not diaphoretic. HENT: Head: Normocephalic. Right Ear: Tympanic membrane, ear canal and external ear normal. Left Ear: Tympanic membrane, ear canal and external ear normal. Nose: Nose normal. Mouth/Throat: Mouth: Mucous membranes are moist. Pharynx: Oropharynx is clear. No oropharyngeal exudate or posterior oropharyngeal erythema. Eyes: Conjunctiva/sclera: Conjunctivae normal. Pupils: Pupils are equal, round, and reactive to light. Cardiovascular: Rate and Rhythm: Normal rate and regular rhythm. Heart sounds: Normal heart sounds. Pulmonary: Effort: Pulmonary effort is normal. No tachypnea, accessory muscle usage or respiratory distress. Breath sounds: Normal breath sounds. No stridor. No wheezing, rhonchi or rales. Abdominal: Palpations: Abdomen is soft. Tenderness: There is no abdominal tender (more content not included)... Normal [facility] US ABDOMEN LIMITEDon 023 US ABDOMEN LIMITED ORIGINAL HISTORY: Liver disease COMPARISON: No TECHNIQUE: The following organs are evaluated: liver, pancreas, gallbladder, common bile duct and right kidney. FINDINGS: The liver is of increased and heterogeneous echogenicity. There is a cholecystectomy. There is no sonographic Martinez's sign. The common bile duct is within normal limits at 5 mm in diameter. The remaining visualized organs are unremarkable in appearance. The aorta and inferior vena cava are unremarkable as well. IMPRESSION: Fatty infiltration of the liver. Post cholecystectomy. Interpreted by: Diego Paul MD Preliminary Report By: Diego Paul MD Electronically signed By Diego Paul MD Dictated Date: 11/23/2022 8:30:19 AM Prelim Date: 11/23/2022 8:31:13 AM Sign Date: 11/23/2022 8:31:13 AM Ordering Provider: MARY JO ALAMO [facility] ([place]) ED Nursing Noteon 08-29-2022 ED Nursing Note Reviewed discharge instructions and patient verbalized understanding. No further questions. Patient ambulated out of ED with strong steady gait. Respirations even and non labored. No acute distress. A&O x4. Juanjose Santoyo RN 08/29/22 0109 [facility] ED Nursing Note Patient states pain has improved and is now more of a discomfort than a pain Juanjose Santoyo RN 08/29/22 0020 [facility] LABORATORYOrdered By: Tejal Andrea on 08-18-2022 Albumin BCP dye [Mass/Vol] 3.9 G/dL Invalid Interpretation Code 3.5 - 5.0 G/dL AO ADM SS Albumin/Globulin [Mass ratio] 1.3 {ratio} Invalid Interpretation Code 1.1 - 2.5 ratio AO ADM SS ALP [Catalytic activity/Vol] 86 U/L Invalid Interpretation Code 40 - 135 U/L AO ADM SS ALT With P-5'-P [Catalytic activity/Vol] 27 U/L Invalid Interpretation Code 14 - 59 U/L AO ADM SS Appearance (U) Clear (08/18/22 9:33 AM) Invalid Interpretation Code Clear AO Auto Urine SS AST With P-5'-P [Catalytic activity/Vol] 17 U/L Invalid Interpretation Code 10 - 40 U/L AO ADM SS Bilirubin [Mass/Vol] 0.5 mg/dL Invalid Interpretation Code 0.2 - 1.0 mg/dL AO ADM SS Bilirubin Ql (U) Negative (08/18/22 9:33 AM) Invalid Interpretation Code Negative AO Auto Urine SS Calcium [Mass/Vol] 8.2 mg/dL Invalid Interpretation Code 8.4 - 10.2 mg/dL AO ADM SS Chloride [Moles/Vol] 102 mmol/L Invalid Interpretation Code 98 - 107 mmol/L AO ADM SS CO2 [Moles/Vol] 23 mmol/L Invalid Interpretation Code 22 - 29 mmol/L AO ADM SS Color (U) Yellow (08/18/22 9:33 AM) Invalid Interpretation Code AO Auto Urine SS Creatinine [Mass/Vol] 0.85 mg/dL Invalid Interpretation Code 0.55 - 1.02 mg/dL AO ADM SS Electrolyte Balance 10.0 mEq/L Invalid Interpretation Code 4.0 - 15.0 mEq/L AO ADM SS Globulin 3.1 G/dL Invalid Interpretation Code AO ADM SS Glucose [Mass/Vol] 105 mg/dL Invalid Interpretation Code 70 - 105 mg/dL AO ADM SS Glucose Test strip (U) [Mass/Vol] Negative Invalid Interpretation Code Negativemg/ dL AO Auto Urine SS Hemoglobin Auto test strip (U) [Mass/Vol] Small *ABN* (08/18/22 9:33 AM) Invalid Interpretation Code Negative AO Auto Urine SS Ketones Ql (U) Negative Invalid Interpretation Code Negativemg/ dL AO Auto Urine SS Potassium [Moles/Vol] 3.7 mmol/L Invalid Interpretation Code 3.5 - 5.1 mmol/L AO ADM SS Protein [Mass/Vol] 7.0 G/dL Invalid Interpretation Code 6.4 - 8.2 G/dL AO ADM SS Sodium [Moles/Vol] 135 mmol/L Invalid Interpretation Code 136 - 145 mmol/L AO ADM SS UA Leuk Est Negative (08/18/22 9:33 AM) Invalid Interpretation Code Negative AO Auto Urine SS UA Nitrite Negative (08/18/22 9:33 AM) Invalid Interpretation Code Negative AO Auto Urine SS UA pH 5.5 (08/18/22 9:33 AM) Invalid Interpretation Code 5.0 - 8.0 AO Auto Urine SS UA Protein Negative Invalid Interpretation Code Negativemg/ dL AO Auto Urine SS UA Spec Grav 1.025 (08/18/22 9:33 AM) Invalid Interpretation Code 1.015-1.025 AO Auto Urine SS UA Specimen Type Clean Catch (08/18/22 9:33 AM) Invalid Interpretation Code AO Auto Urine SS UA Urobilinogen 0.2 E.U./dL Invalid Interpretation Code 0.2-1.0E.U. /dL AO Auto Urine SS Urea nitrogen [Mass/Vol] 8 mg/dL Invalid Interpretation Code 7 - 18 mg/dL AO ADM SS Urea nitrogen/Creatinine [Mass ratio] 9 ratio Invalid Interpretation Code 7 - 27 ratio AO ADM SS LABORATORYOrdered By: Darren Reich on 08-18-2022 Basophil, Absolute 0.0 103/mcL Invalid Interpretation Code 0.0 - 0.2 10^3/mcL AO Workflow SS Basophils/100 WBC (Bld) 0.4 % Invalid Interpretation Code 0.0 - 2.5 % AO Workflow SS Eosinophil, Absolute 0.0 103/mcL Invalid Interpretation Code 0.0 - 0.4 10^3/mcL AO Workflow SS Eosinophils/100 WBC (Bld) 0.3 % Invalid Interpretation Code 0.0 - 7.0 % AO Workflow SS Erythrocyte distribution width (RBC) [Ratio] 12.8 % Invalid Interpretation Code 11.5 - 14.5 % AO Workflow SS Hematocrit (Bld) [Volume fraction] 38.0 % Invalid Interpretation Code 37.0 - 47.0 % AO Workflow SS Hemoglobin (Bld) [Mass/Vol] 13.0 G/dL Invalid Interpretation Code 12.0 - 16.0 G/dL AO Workflow SS Lymphocyte, Absolute 0.4 103/mcL Invalid Interpretation Code 0.8 - 3.9 10^3/mcL AO Workflow SS Lymphocytes/100 WBC (Bld) 8.7 % Invalid Interpretation Code 10.0 - 50.0 % AO Workflow SS MCH (RBC) [Entitic mass] 28.7 pg Invalid Interpretation Code 27.0 - 31.2 pg AO Workflow SS MCHC 34.2 G/dL Invalid Interpretation Code 33.0 - 37.0 G/dL AO Workflow SS MCV (RBC) [Entitic vol] 83.7 fL Invalid Interpretation Code 80.0 - 94.0 fL AO Workflow SS Monocyte distribution width Auto (Bld) [Entitic vol] 21.10 Invalid Interpretation Code 0.00 - 20.00 AO Workflow SS Comment on above: Result Comment: For adults in ED, MDW>20.0 may be associated with a higher risk of sepsis during the first 12hrs of hospital admission Monocyte, Absolute 0.2 103/mcL Invalid Interpretation Code 0.2 - 1.0 10^3/mcL AO Workflow SS Monocytes/100 WBC (Bld) 4.4 % Invalid Interpretation Code 1.7 - 13.0 % AO Workflow SS Neutrophil, Absolute 4.4 103/mcL Invalid Interpretation Code 2.9 - 6.2 10^3/mcL AO Workflow SS Neutrophils/100 WBC (Bld) 86.2 % Invalid Interpretation Code 37.0 - 80.0 % AO Workflow SS Platelet mean volume (Bld) [Entitic vol] 8.3 fL Invalid Interpretation Code 7.4 - 10.4 fL AO Workflow SS Platelets (Bld) [#/Vol] 197 103/mcL Invalid Interpretation Code 130 - 400 10^3/mcL AO Workflow SS RBC (Bld) [#/Vol] 4.53 106/mcL Invalid Interpretation Code 4.20 - 5.40 10^6/mcL AO Workflow SS WBC (Bld) [#/Vol] 5.1 103/mcL Invalid Interpretation Code 4.6 - 10.8 10^3/mcL AO Workflow SS LABORATORYOrdered By: SYSTEM SYSTEM on 08-18-2022 GFR 93 ml/min/1.73sqm Invalid Interpretation Code AO Chemistry S GFR Non- 77 ml/min/1.73sqm Invalid Interpretation Code AO Chemistry S LABORATORYOrdered By: Darren Reich on 03-23-2022 ALT With P-5'-P [Catalytic activity/Vol] 27 U/L Invalid Interpretation Code 14 - 59 U/L AO ADM SS AST With P-5'-P [Catalytic activity/Vol] 16 U/L Invalid Interpretation Code 10 - 40 U/L AO ADM SS Calcium [Mass/Vol] 9.4 mg/dL Invalid Interpretation Code 8.4 - 10.2 mg/dL AO ADM SS Chloride [Moles/Vol] 100 mmol/L Invalid Interpretation Code 98 - 107 mmol/L AO ADM SS CO2 [Moles/Vol] 28 mmol/L Invalid Interpretation Code 22 - 29 mmol/L AO ADM SS Creatinine [Mass/Vol] 0.91 mg/dL Invalid Interpretation Code 0.55 - 1.02 mg/dL AO ADM SS Electrolyte Balance 13.0 mEq/L Invalid Interpretation Code 4.0 - 15.0 mEq/L AO ADM SS Glucose [Mass/Vol] 91 mg/dL Invalid Interpretation Code 70 - 105 mg/dL AO ADM SS Potassium [Moles/Vol] 4.2 mmol/L Invalid Interpretation Code 3.5 - 5.1 mmol/L AO ADM SS Sodium [Moles/Vol] 141 mmol/L Invalid Interpretation Code 136 - 145 mmol/L AO ADM SS TSH Qn 3.74 m[IU]/L Invalid Interpretation Code 0.36 - 3.74 mcIU/mL AO ADM SS Urea nitrogen [Mass/Vol] 7 mg/dL Invalid Interpretation Code 7 - 18 mg/dL AO ADM SS Urea nitrogen/Creatinine [Mass ratio] 8 ratio Invalid Interpretation Code 7 - 27 ratio AO ADM SS Vit. D 25-Hydroxy 17.9 ng/mL Invalid Interpretation Code AO ADM SS LABORATORYOrdered By: SYSTEM SYSTEM on 03-23-2022 GFR 87 ml/min/1.73sqm Invalid Interpretation Code AO Chemistry S GFR Non- 72 ml/min/1.73sqm Invalid Interpretation Code AO Chemistry S LABORATORYOrdered By: [employer] SYSTEM on 12-09-2021 Cobalamin (Vitamin B12) [Mass/Vol] 415 pg/mL Invalid Interpretation Code 211 - 911 pg/mL AH ADM SS Insulin Qn 12.21 munit/L Invalid Interpretation Code 2.60 - 37.60 mU/L AH ADM SS LABORATORYOrdered By: Danny Richard on 12-09-2021 Iron [Mass/Vol] 73 ug/dL Invalid Interpretation Code 50 - 170 mcg/dL AO ADM SS TSH Qn 2.43 m[IU]/L Invalid Interpretation Code 0.36 - 3.74 mcIU/mL AO ADM SS Vit. D 25-Hydroxy 19.2 ng/mL Invalid Interpretation Code AO ADM SS LABORATORYOrdered By: Merissa Alarcon on 09-24-2021 ADMITTED TO INTENSIVE CARE UNIT FOR CONDITION OF INTEREST:FIND:PT:^PAT IENT:ORD: Unknown (09/24/21 2:16 PM) Invalid Interpretation Code AO Auto Urine SS EMPLOYED IN A HEALTHCARE SETTING:FIND:PT:^AUDELIA ENT:ORD: Yes (09/24/21 2:16 PM) Invalid Interpretation Code AO Auto Urine SS FIRST TEST FOR CONDITION OF INTEREST:FIND:PT:^PAT IENT:ORD: No (09/24/21 2:16 PM) Invalid Interpretation Code AO Auto Urine SS HAS SYMPTOMS RELATED TO CONDITION OF INTEREST:FIND:PT:^PAT IENT:ORD: Yes (09/24/21 2:16 PM) Invalid Interpretation Code AO Auto Urine SS Illness or injury onset date and time [id number] Invalid Interpretation Code AO Auto Urine SS Patient was hospitalized because of this condition No (09/24/21 2:16 PM) Invalid Interpretation Code AO Auto Urine SS status Unknown (09/24/21 2:16 PM) Invalid Interpretation Code AO Auto Urine SS RESIDES IN A CONGREGATE CARE SETTING:FIND:PT:^AUDELIA ENT:ORD: No (09/24/21 2:16 PM) Invalid Interpretation Code AO Auto Urine SS SARS-CoV-2 (COVID-19) RNA CHI+probe Ql (Resp) Positive *ABN* (09/24/21 2:16 PM) Invalid Interpretation Code Negative AO Auto Urine SS SARS-CoV-2 (COVID-19) RNA CHI+probe Ql (Unsp spec) Positive results are indicative of the presence of SARS-CoV-2 RNA; clinical correlation with patient history and other diagnostic information is necessary to determine patient infection status. Positive results do not rule out bacterial infection or co-infection with other viruses. The agent detected may not be the definite cause of disease. Laboratories within the [facility] and its territories are required to report all positive results to the appropriate public health authorities.Detection of analyte target(s) does not imply that the corresponding virus(es) are infectious or are the causative agents for clinical symptoms.There is a risk of false positive values resulting from cross-contamination by target organisms, their nucleic acids or amplified product, or from non-specific signals in the assay.SHASTA SARS-CoV-2 Assay is a Real-Time reverse-transcriptase polymerase chain reaction (RT-PCR) based qualitative in vitro diagnostic test intended for the qualitative detection of nucleic acid from the SARS-CoV-2 in nasopharyngeal swab specimens collected from individuals suspected of COVID-19 by their healthcare provider. Testing is limited to laboratories certified under the Clinical Laboratory Improvement Amendments of 1988 (CLIA), 42 U.S.C. 263a, to perform moderate and high complexity tests. Invalid Interpretation Code AO Auto Urine SS LABORATORYOrdered By: Mercedes Gamboa on 09-21-2021 ADMITTED TO INTENSIVE CARE UNIT FOR CONDITION OF INTEREST:FIND:PT:^PAT IENT:ORD: No (09/21/21 9:09 PM) Invalid Interpretation Code AO Auto Urine SS EMPLOYED IN A HEALTHCARE SETTING:FIND:PT:^AUDELIA ENT:ORD: Yes (09/21/21 9:09 PM) Invalid Interpretation Code AO Auto Urine SS FIRST TEST FOR CONDITION OF INTEREST:FIND:PT:^PAT IENT:ORD: Unknown (09/21/21 9:09 PM) Invalid Interpretation Code AO Auto Urine SS FLUAV RNA CHI+probe Ql (Upper resp) Negative (09/21/21 9:09 PM) Invalid Interpretation Code Negative AO Auto Urine SS FLUBV RNA CHI+probe Ql (Upper resp) Negative (09/21/21 9:09 PM) Invalid Interpretation Code Negative AO Auto Urine SS HAS SYMPTOMS RELATED TO CONDITION OF INTEREST:FIND:PT:^PAT IENT:ORD: Yes (09/21/21 9:09 PM) Invalid Interpretation Code AO Auto Urine SS Illness or injury onset date and time [id number] Invalid Interpretation Code AO Auto Urine SS Patient was hospitalized because of this condition No (09/21/21 9:09 PM) Invalid Interpretation Code AO Auto Urine SS status Unknown (09/21/21 9:09 PM) Invalid Interpretation Code AO Auto Urine SS RESIDES IN A CONGREGATE CARE SETTING:FIND:PT:^AUDELIA ENT:ORD: No (09/21/21 9:09 PM) Invalid Interpretation Code AO Auto Urine SS RSV RNA CHI+probe Ql (Upper resp) Negative (09/21/21 9:09 PM) Invalid Interpretation Code Negative AO Auto Urine SS SARS-CoV-2 (COVID-19) RNA CHI+probe Ql (Resp) Negative (09/21/21 9:09 PM) Invalid Interpretation Code Negative AO Auto Urine SS SARS-CoV-2 (COVID-19) RNA CHI+probe Ql (Unsp spec) Negative results do not preclude SARS-CoV-2 infection and should not be used as the sole basis for patient management decisions. Negative results must be combined with clinical observations, patient history, and epidemiological information.There is a risk of false negative values resulting from improperly collected, transported, or handled specimens.There is a risk of false negative values due to the presence of sequence variants in the pathogen targets of the assay, procedural errors, amplification inhibitors in specimens, or inadequate numbers of organisms for amplification.SHASTA SARS-CoV-2 Assay is a Real-Time reverse-transcriptase polymerase chain reaction (RT-PCR) based qualitative in vitro diagnostic test intended for the qualitative detection of nucleic acid from the SARS-CoV-2 in nasopharyngeal swab specimens collected from individuals suspected of COVID-19 by their healthcare provider. Testing is limited to laboratories certified under the Clinical Laboratory Improvement Amendments of 1988 (CLIA), 42 U.S.C. 263a, to perform moderate and high complexity tests. Invalid Interpretation Code AO Auto Urine SS Basic Metabolic Panelon 08-0 Anion gap 3 molar conc 12 Normal [facility] Comment on above: Performed By: #### H RENÉE BMP3 ####[address] [place] [address] Calcium mass conc 9.3 mg/dL Normal 8.4-10.4 [facility] Comment on above: Performed By: #### H RENÉE BMP3 ####[address] [place] [address] CO2 molar conc 24 mmol/L Normal 22-30 [facility] Comment on above: Performed By: #### H RENÉE BMP3 ####[address] [place] [address] Creatinine mass conc 0.74 mg/dL Normal 0.52-1.25 [facility] Comment on above: Performed By: #### H RENÉE BMP3 ####[address] [place] [address] GFR/1.73 sq M predicted among blacks MDRD vol rate/area (S/P/Bld) mL/min/{1.73_m2} Normal >60 [facility] Comment on above: Performed By: #### H RENÉE BMP3 ####[address] [place] [address] GFR/1.73 sq M predicted among non-blacks MDRD vol rate/area (S/P/Bld) mL/min/{1.73_m2} Normal >60 [facility] Comment on above: Result Comment: Sour ce- MDRD equation with creatinine calibration to IDMS(NKDEP) eGFR not recommended for drug dose adjustment Performed By: #### H EMDF, BMP3 ####[place] [address] [place] [address] Glucose mass conc 102 mg/dL High 70-100 [facility] Comment on above: Performed By: #### H EMDF, BMP3 ####[address] [place] [address] Urea nitrogen mass conc 6 mg/dL Low 7-20 [facility] Comment on above: Performed By: #### H EMDF, BMP3 ####[facility] [place] [address] Potassium molar conc 4.1 mmol/L Normal 3.5-5.1 [facility] Comment on above: Performed By: #### H EMDF, BMP3 ####[address] [place] [address] Sodium molar conc 142 mmol/L Normal 137-145 [facility] [facility] Comment on above: Performed By: #### H EMDF, BMP3 ####[address] [place] [address] Chloride molar conc 106 mmol/L Normal 98-107 [facility] Comment on above: Performed By: #### H EMDF, BMP3 ####[address] [place] [address] HCG,Urine Qualon 05-07-2018 HCG.beta subunit ( test) Ql (U) Negative Normal Negative [facility] Comment on above: Result Comment: Preg carmen is the most common reason for HCG in urine, althoughchoriocarcinoma, hydatidiform mole, and certain nontropho-blastic malignancies also result in detectable urinary HCGlevels. Sensitivity = 20mIU/mL. Performed By: #### H CGUR ####[facility] [place] [address] Hemogram w/ Autodiffon 05-07 Abs Baso Cnt 0.1 10*3/uL Normal 0.0-0.2 [facility] Comment on above: Performed By: #### H EMDF, BMP3 ####[address] [place] [address] Abs Neutrophile Cnt 4.3 10*3/uL Normal 1.8-7.0 [facility] Comment on above: Performed By: #### H EMDF BMP3 ####[address] [place] [address] Basophils/100 WBC Auto (Bld) 0.9 % Normal 0.0-2.0 [facility] Comment on above: Performed By: #### H RENÉE BMP3 ####[address] [place] [address] Eosinophils Auto #/vol (Bld) 0.2 10*3/uL Normal 0.0-0.5 [facility] Comment on above: Performed By: #### H RENÉE BMP3 ####[address] [place] [address] Eosinophils/100 WBC Auto (Bld) 3.1 % Normal 1.0-6.0 [facility] Comment on above: Performed By: #### H RENÉE BMP3 ####[address] [place] [address] Erythrocyte distribution width Auto Ratio (RBC) 15.1 % High 11.5-14.5 [facility] Comment on above: Performed By: #### H EMDF BMP3 ####[address] [place] [address] Granulocytes/100 WBC (Bld) 58.1 % Normal 40.0-80.0 [facility] Comment on above: Performed By: #### H EMDF, BMP3 ####[address] [place] [address] Hematocrit Auto Volume Fraction (Bld) 36.0 % Normal 35.0-47.0 [facility] Comment on above: Performed By: #### H RENÉE BMP3 ####[address] [place] [address] Hemoglobin mass conc (Bld) 11.8 g/dL Normal 11.7-16.0 [facility] Comment on above: Performed By: #### H RENÉE BMP3 ####[address] [place] [address] Lymphocytes Auto #/vol (Bld) 2.4 10*3/uL Normal 1.0-4.3 [facility] Comment on above: Performed By: #### H RENÉE BMP3 ####[address] [place] [address] Lymphocytes/100 WBC Auto (Bld) 32.0 % Normal 20.0-40.0 [facility] Comment on above: Performed By: #### Mitch CHINCHILLA BMP3 ####[address] [place] [address] MCH Auto Entitic mass (RBC) 25.4 pg Low 26.0-34.0 [facility] Comment on above: Performed By: #### H RENÉE BMP3 ####[address] [place] [address] MCHC Auto mass conc (RBC) 32.7 % Normal 32.0-36.0 [facility] Comment on above: Performed By: #### H RENÉE BMP3 ####[place] [address] [place] [address] MCV Auto Entitic volume (RBC) 77.8 fL Low 79.0-98.0 [facility] Comment on above: Performed By: #### H RENÉE BMP3 ####[address] [place] [address] Monocytes Auto #/vol (Bld) 0.4 10*3/uL Normal 0.0-0.8 [facility] Comment on above: Performed By: #### H RENÉE BMP3 ####[place] [address] [place] [address] Monocytes/100 WBC Auto (Bld) 5.9 % Normal 2.0-10.0 [facility] Comment on above: Performed By: #### H EMDF, BMP3 ####[facility] [place] [address] Platelet mean volume Auto Entitic volume (Bld) 8.5 fL Normal 7.4-10.4 [facility] Comment on above: Performed By: #### H EMDF, BMP3 ####[facility] [place] [address] Platelets Auto #/vol (Bld) 276 10*3/uL Normal 140-440 [facility] Comment on above: Performed By: #### H EMDF, BMP3 ####[facility] [place] [address] RBC Auto #/vol (Bld) 4.63 10*6/uL Normal 3.80-5.20 [facility] Comment on above: Performed By: #### H EMDF, BMP3 ####[facility] [place] [address] WBC Auto #/vol (Bld) 7.5 10*3/uL Normal 3.6-10.7 [facility] Comment on above: Performed By: #### H EMDF, BMP3 ####[facility] [place] [address] Office Visit: Spine Visit- R hip painon 05-12-2017 Documentation of current medications (procedure) Done Invalid Interpretation Code [facility] Work Phone: Documentation of current medications (procedure) T Invalid Interpretation Code [facility] Work Phone: Protein mass conc Done [facility] Work Phone: Protein mass conc T [facility] Work Phone: Office Visit: Spine Visit- N becka & low back painon 05-10-2017 Protein mass conc Done [facility] Work Phone: Protein mass conc T [facility] Work Phone: Office Visit: Spine Visit- N becka & low back painon 05-03-2017 Protein mass conc Done [facility] Work Phone: Protein mass conc T [facility] Work Phone: Office Visit: Spine Visit- N becka & low back painon 05-02-2017 Protein mass conc Done [facility] Work Phone: Protein mass conc T [facility] Work Phone: Office Visit: Spine Visit- N EWon 04-28-2017 Alcoholism counseling (procedure) no Invalid Interpretation Code [facility] Work Phone: Dietary management education, guidance, and counseling (procedure) yes Invalid Interpretation Code [facility] Work Phone: Documentation of current medications (procedure) Done Invalid Interpretation Code [facility] Work Phone: Documentation of current medications (procedure) T Invalid Interpretation Code [facility] Work Phone: Protein mass conc no [facility] Work Phone: Tobacco smoking status NHIS Never [facility] Work Phone: Tobacco smoking status NHIS Former smoker [facility] Work Phone: Tobacco use [facility] Former smoker Invalid Interpretation Code [facility] Work Phone: Vital Signs Date Time Vital Sign Value Performing Clinician Facility 11-05-2024 08:10-0500 Diastolic Blood Pressure Non-Invasive 70 mm[Hg] CHELSIE RONQUILLO MD [facility] 11-05-2024 08:10-0500 Heart rate 68 /min CHELSIE RONQUILLO MD [facility] 11-05-2024 08:10-0500 Respiratory rate 16 /min CHELSIE RONQUILLO MD [facility] 11-05-2024 08:10-0500 Systolic Blood Pressure Non-Invasive 119 mm[Hg] CHELSIE RONQUILLO MD [facility] 11-05-2024 06:43-0500 Body temperature 97.52 [degF] CHELSIE RONQUILLO MD [facility] 11-05-2024 06:43-0500 Diastolic Blood Pressure Non-Invasive 74 mm[Hg] CHELSIE RONQUILLO MD [facility] 11-05-2024 06:43-0500 Heart rate 86 /min CHELSIE RONQUILLO MD [facility] 11-05-2024 06:43-0500 Respiratory rate 18 /min CHELSIE RONQUILLO MD [facility] 11-05-2024 06:43-0500 Systolic Blood Pressure Non-Invasive 101 mm[Hg] CHELSIE RONQUILLO MD [facility] 07-28-2023 17:52-0400 Body temperature 98.6 [degF] CHIVO THOMPSON MD [facility] 07-28-2023 17:52-0400 Diastolic Blood Pressure Non-Invasive 77 1 CHIVO THOMPSON MD [facility] 07-28-2023 17:52-0400 Heart rate 80 /min CHIVO THOMPSON MD [facility] 07-28-2023 17:52-0400 Respiratory rate 20 /min CHIVO THOMPSON MD [facility] 07-28-2023 17:52-0400 Systolic Blood Pressure Non-Invasive 134 1 CHIVO THOMPSON MD [facility] 07-28-2023 08:04-0400 Body temperature 98.06 [degF] CHIVO THOMPSON MD [facility] 07-28-2023 08:04-0400 Diastolic Blood Pressure Non-Invasive 82 1 CHIVO THOMPSON MD [facility] 07-28-2023 08:04-0400 Heart rate 60 /min CHIVO THOMPSON MD [facility] 07-28-2023 08:04-0400 Respiratory rate 20 /min CHIVO THOMPSON MD [facility] 07-28-2023 08:04-0400 Systolic Blood Pressure Non-Invasive 119 1 CHIVO THOMPSON MD [facility] 07-28-2023 03:30-0400 Body height 170.2 cm CHIVO THOMPSON MD [facility] 07-28-2023 03:30-0400 Body weight 113.8 kg CHIVO THOMPSON MD [facility] 07-28-2023 03:30-0400 Body weight 39.28 kg/m2 CHIVO THOMPSON MD [facility] 07-28-2023 03:23-0400 Body weight 113.8 kg CHIVO THOMPSON MD [facility] 07-28-2023 03:22-0400 Body temperature 97.7 [degF] CHIVO THOMPSON MD [facility] 07-28-2023 03:22-0400 Diastolic Blood Pressure Non-Invasive 76 1 CHIVO THOMPSON MD [facility] 07-28-2023 03:22-0400 Heart rate 68 /min CHIVO THOMPSON MD [facility] 07-28-2023 03:22-0400 Respiratory rate 18 /min CHIVO THOMPSON MD [facility] 07-28-2023 03:22-0400 Systolic Blood Pressure Non-Invasive 110 1 CHIVO THOMPSON MD [facility] 07-28-2023 03:02-0400 Heart rate 78 /min CHIVO THOMPSON MD [facility] 07-28-2023 01:13-0400 Heart rate 66 /min CHIVO THOMPSON MD [facility] 07-27-2023 23:35-0400 Body height 170.2 cm CHIVO THOMPSON MD [facility] 07-27-2023 23:35-0400 Body weight 109.1 kg CHIVO THOMPSON MD [facility] 07-27-2023 23:35-0400 Heart rate 66 /min CHIVO THOMPSON MD [facility] 03-06-2023 13:23-0400 Body temperature 97.9 [degF] Fabio Vann COUTURE DRESSMAKER.BLOCK CLEANER Work Phone: [facility] 03-06-2023 13:23-0400 Body weight 111.13 kg Fabio Vann COUTURE DRESSMAKER.BLOCK CLEANER Work Phone: [facility] 03-06-2023 13:23-0400 Diastolic blood pressure 80 mm[Hg] Fabio Vann COUTURE DRESSMAKER.BLOCK CLEANER Work Phone: [facility] 03-06-2023 13:23-0400 Heart rate 76 /min Fabio Vann COUTURE DRESSMAKER.BLOCK CLEANER Work Phone: [facility] 03-06-2023 13:23-0400 Respiratory rate 16 /min [facility]ESS[facility]KER.BLOCK CLEANER Work Phone: [facility] 03-06-2023 13:23-0400 SaO2% (BldA) [Mass fraction] 98 % [facility] COUTURE DRESSMAKER.BLOCK CLEANER Work Phone: [facility] 03-06-2023 13:23-0400 Systolic blood pressure 118 mm[Hg] [facility] COUTURE DRESSMAKER.BLOCK CLEANER Work Phone: [facility] 08-18-2022 11:36-0500 Diastolic Blood Pressure Non-Invasive 72 1 CHIVO THOMPSON MD [facility] 08-18-2022 11:36-0500 Heart rate 100 /min CHIVO THOMPSON MD [facility] 08-18-2022 11:36-0500 Respiratory rate 18 /min CHIVO THOMPSON MD [facility] 08-18-2022 11:36-0500 Systolic Blood Pressure Non-Invasive 120 1 CHIVO THOMPSON MD [facility] 08-18-2022 08:41-0500 Body height 170.2 cm CHIVO THOMPSON MD [facility] 08-18-2022 08:41-0500 Body temperature 98.42 [degF] CHIVO THOMPSON MD [facility] 08-18-2022 08:41-0500 Body weight 104.5 kg CHIVO THOMPSON MD [facility] 08-18-2022 08:41-0500 Diastolic Blood Pressure Non-Invasive 71 1 CHIVO THOMPSON MD [facility] 08-18-2022 08:41-0500 Heart rate 122 /min CHIVO THOMPSON MD [facility] 08-18-2022 08:41-0500 Respiratory rate 18 /min CHIVO THOMPSON MD [facility] 08-18-2022 08:41-0500 Systolic Blood Pressure Non-Invasive 114 1 CHIVO THOMPSON MD [facility] 04-28-2017 14:50-0400 BMI (Body Mass Index) 46.64 kg/m2 Olesya Dossi DC [facility] Work Phone: 04-28-2017 14:50-0400 Height 157.48 cm Olesya Dossi DC [facility] Work Phone: 04-28-2017 14:50-0400 Pulse (Heart Rate) 81 /min Olesya Dossi DC [facility] Work Phone: 04-28-2017 14:50-0400 Respiratory Rate 19 /min Olesya Dossi DC [facility] Work Phone: 04-28-2017 14:50-0400 Weight 115.67 kg Olesya Dossi DC [facility] Work Phone: Encounters Encounter Date Encounter Type Care Provider Facility Start: 01-28-2025 ambulatory Health Risk Assessment Facility:[facility] Start: 11-05-2024 End: 11-05-2024 Emergency department patient visit CHELSIE RONQUILLO MD [facility] Start: 08-23-2024 End: 08-23-[address] SMITA BRODERICK DO Facility:[facility] Start: 08-23-2024 End: 08-23-[address] SMITA BRODERICK DO [facility] Start: 09-16-2023 End: 09-17-2023 ambulatory OSITO LAYNE APRN-CNM Facility:[facility] Start: 09-16-2023 End: 09-16-2023 Patient encounter procedure OSITO LAYNE COUTURE DRESSMAKER-CNM [facility] Start: 09-14-2023 End: 09-19-2023 ambulatory OSITO LAYNE COUTURE DRESSMAKER-CNM Facility:[facility] Start: 09-14-2023 End: 09-19-2023 Encounter for gynecological examination (general) (routine) without abnormal findings OSITO LAYNE COUTURE DRESSMAKER-CNM Facility:[facility] Start: 09-14-2023 End: 09-18-2023 Outreach Lab OSITO LAYNE COUTURE DRESSMAKER-CNM [facility] Start: 07-28-2023 End: 07-28-2023 ambulatory ERICA VICTOR DO Facility:[facility] Start: 07-27-2023 End: 07-28-2023 Observation CHIVO THOMPSON MD [facility] Start: 04-07-2023 End: 04-08-[address] SMITA BRODERICK DO Facility:[facility] Start: 04-07-2023 End: 04-07-2023 Patient encounter procedure MARY JO ALAMO COUTURE DRESSMAKER-BLOCK CLEANER [facility] Start: 03-06-2023 End: 03-06-2023 ambulatory LÁZARO LINDA Facility:[facility] Start: 03-06-2023 End: 03-06-2023 Office outpatient visit 15 minutes Fabio Vann COUTURE DRESSMAKER.BLOCK CLEANER Work Phone: [facility] Comment on above: Viral illness (Prima ry Dx) Start: 11-22-2022 End: 11-23-[address] SMITA BRODERICK DO Facility:[facility] Start: 11-22-2022 End: 11-22-2022 Patient encounter procedure MARY JO ALAMO COUTURE DRESSMAKER-BLOCK CLEANER [facility] Start: 08-29-2022 End: 08-29-2022 Emergency department patient visit CHRIS Dixon [facility] Start: 08-28-2022 End: 08-29-2022 Emergency department patient visit CHRIS Dixon [facility] Start: 08-18-2022 End: 08-18-2022 Emergency department patient visit CIHVO THOMPSON MD [facility] Start: 03-23-2022 End: 03-23-2022 Patient encounter procedure ABDELRAHMAN FONG MD [facility] Start: 12-17-2021 End: 12-21-2021 Outreach Lab ABDELRAHMAN FONG MD [facility] Start: 12-09-2021 End: 12-09-2021 Patient encounter procedure ABDELRAHMAN FONG MD [facility] Start: 09-24-2021 End: 09-28-2021 Outreach Lab LÁZARO LINDA DO [facility] Start: 09-21-2021 End: 09-25-2021 Outreach Lab SMITA GRANGER DO [facility] Start: 08-27-2018 Emergency department patient visit Aquiles Huber [facility] Start: 05-07-2018 Emergency department patient visit Wiliam Reyes [facility] Procedures Date Procedure Procedure Detail Performing Clinician Start: 05-12-2017 End: 05-12-2017 Chiropractic manipulation Olesya Casey Dossi DC Work Phone: Start: 05-12-2017 End: 05-12-2017 Electric stimulation therapy Olesya Casey Dos si DC Work Phone: Start: 05-12-2017 End: 05-12-2017 Mechanical traction therapy Olesya B Amy i DC Work Phone: Start: 05-10-2017 End: 05-10-2017 Chiropractic manipulation Olesya B Dossi DC Work Phone: Start: 05-10-2017 End: 05-10-2017 Electric stimulation therapy Olesya B Dos si DC Work Phone: Start: 05-10-2017 End: 05-10-2017 Mechanical traction therapy Olesya B Amy i DC Work Phone: Start: 05-03-2017 End: 05-03-2017 Chiropractic manipulation Olesya B Dossi DC Work Phone: Start: 05-03-2017 End: 05-03-2017 Electric stimulation therapy Olesya B Dos si DC Work Phone: Start: 05-03-2017 End: 05-03-2017 Mechanical traction therapy Olesya B Amy i DC Work Phone: Start: 05-02-2017 End: 05-02-2017 Chiropractic manipulation Olesya B Dossi DC Work Phone: Start: 05-02-2017 End: 05-02-2017 Electric stimulation therapy Olesya B Dos si DC Work Phone: Start: 05-02-2017 End: 05-02-2017 Mechanical traction therapy Olesya B Amy i DC Work Phone: Start: 04-28-2017 End: 04-28-2017 Dietary management education, guidance, and counseling Olesya Dossi DC Start: 04-28-2017 End: 05-02-2017 Chiropractic manipulation Olesya B Dossi DC Work Phone: Start: 04-28-2017 End: 05-02-2017 Electric stimulation therapy Olesya B Dos si DC Work Phone: Start: 04-28-2017 End: 05-02-2017 Mechanical traction therapy Olesya B Amy i DC Work Phone: Start: 12-01-2006 Kana GRANGER DO Oral surgery (qualif ier value) SMITA GRANGER DO Comment on above: wisdom teeth removed . Plan of Treatment Date Care Activity Detail Author Start: 05-27-2026 HPV TESTING HPV TESTING [facility] Start: 05-27-2026 PAP TESTING PAP TESTING [facility] Start: 11-18-2025 Urine microalbumin profile DTAP,TDAP,TD (2 - Td or Tdap) [facility] Start: 06-03-2023 Influenza vaccination INFLUENZA (Season Ended) [facility] Start: 10-03-2022 DEPRESSION ASSESSMENT DEPRESSION ASSESSMENT [facility] Start: 12-08-2020 COVID-19 VACCINE (3 - Booster for Pfizer series) COVID-19 VACCINE (3 - Booster for Pfizer series) [facility] Start: 05-12-2017 End: 05-12-2017 Appointment Appointment [facility] Work Phone: Start: 05-12-2017 End: 05-12-2017 Follow up Appt 3x/week Follow up Appt 3x/week [facility] Work Phone: Start: 05-10-2017 End: 05-10-2017 Appointment Appointment [facility] Work Phone: Start: 05-10-2017 End: 05-10-2017 Follow up Appt 3x/week Follow up Appt 3x/week [facility] Work Phone: Start: 05-03-2017 End: 05-03-2017 Appointment Appointment [facility] Work Phone: Start: 05-03-2017 End: 05-03-2017 Follow up Appt 3x/week Follow up Appt 3x/week [facility] Work Phone: Start: 05-02-2017 End: 05-02-2017 Appointment Appointment [facility] Work Phone: Start: 05-02-2017 End: 05-02-2017 Follow up Appt 3x/week Follow up Appt 3x/week [facility] Work Phone: Start: 04-28-2017 End: 05-02-2017 Follow up Appt 3x/week Follow up Appt 3x/week [facility] Work Phone: Start: 2007 HEPATITIS C SCREENING HEPATITIS C SCREENING [facility] Immunizations Immunization Date Immunization Notes Care Provider Albina berry 09-22-2020 SARS-CoV-2 mRNA (tozinameran) vaccine SMITA GRANGER DO [facility] Comment on above: Result Comment: 2020: [id number] 07-03-2018 influenza virus vaccine, unspecified formulation SMITA GRANGER DO [facility] 07-03-2017 influenza virus vaccine, unspecified formulation SMITA GRANGER DO [facility] 05-09-2017 hepatitis B vaccine, adult dosage SMITA GRANGER DO [facility] 12-07-2016 hepatitis B vaccine, adult dosage SMITA GRANGER DO [facility] 11-05-2016 hepatitis B vaccine, adult dosage SMITA GRANGER DO [facility] 08-19-2016 influenza virus vaccine, unspecified formulation SMITA GRANGER DO [facility] 08-19-2016 influenza, injectabl e, quadrivalent, contains preservative Fabio Vann APRN.CNP Work Phone: [facility] 11-18-2015 tetanus toxoid, reduced diphtheria toxoid, and acellular pertussis vaccine, adsorbed SMITA BETSYCAROLINE DO [facility] 07-03-2015 tetanus toxoid, reduced diphtheria toxoid, and acellular pertussis vaccine, adsorbed SMITA GRANGER DO [facility] 07-02-2015 tetanus toxoid, reduced diphtheria toxoid, and acellular pertussis vaccine, adsorbed SMITA GRANGER DO [facility] Payers Date Payer Category Payer Self-pay 2023 [employer] 2022 [employer] [id number] 2022 [employer] others) [id number] 2021 [employer] ( [employer] others) [id number] 2021 Unknown [facility] [id number] 2021-Present [phone] [address] [place] [address] Indemnity [id number] 1989 Unknown [id number] 1989 Unknown [id number] 1989 Unknown [id number] 1989 Unknown [id number] 1989 Unknown [id number] 1989 Unknown [id number] 1989 Unknown [id number] 1989 Unknown [id number] 1989 Unknown [id number] Unknown [id number] Social History Date Type Detail Facility Start: 10-10-2020 End: 10-19-2023 Ex-smoker (finding) [facility] Assigned At [facility] End: 07-23-2008 History of tobacco use Current smoker [facility] End: 07-23-2008 History of tobacco use Cigarette Smoker [facility] Start: 03-06-2023 Tobacco use and exposure Smokeless tobacco non-user [facility] Start: 03-06-2023 Alcohol intake Current drinke r of alcohol (finding) [facility] Start: 03-06-2023 Tobacco Comment she smoked for 6 months only [facility] Start: 07-10-2015 Alcohol Comment socially; not while [facility] Start: 1990 Sex Assigned At Not on file [facility] Start: 06-29-2017 Sex Female (finding) [facility] Functional Status Date Assessment Result Facility 11-05-2024 Functional Status Up ad kena [facility] 11-05-2024 Functional Status Standard Safet y ID band on, Call device within reach, Bed in low position, Wheels locked, Upper/Half-Length side-rails up, Phone within reach, personal items within reach, Safety level maintained [facility] 07-28-2023 Functional Status 7am-7pm [facility] 07-28-2023 Functional Status [facility] 07-28-2023 Functional Status Independent [facility] 07-28-2023 Functional Status None [facility] 07-28-2023 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 11-05-2024 Mental Status [facility] 07-28-2023 Mental Status Oriented x 4 [facility] 07-28-2023 Mental Status [facility] 07-27-2023 Mental Status [facility] 08-18-2022 Mental Status Orientation Oriented x 4 [facility] 08-18-2022 Mental Status [facility] Clinical Notes 12-04-2015 to 11-05-2024 Laboratory Note Date & Type Note Facility 11-05-2024 Hospital Discharg e instructions Patient Education 11/05/2024 08:12:22 Headache, Unspecified Headache, Unspecified A number of things can cause headaches. The cause of your headache isn t clear. But it doesn t seem to be a sign of any serious illness. Headache affects almost everyone at some time. It is the most common reason people miss days from work or school. You could have a tension headache or a migraine headache. Stress can cause a tension headache. This can happen if you tense the muscles of your shoulders, neck, and scalp without knowing it. If this stress lasts long enough, you may develop a tension headache. It is not clear why migraines occur, but certain things called" triggers" can raise the risk of having a migraine attack. Migraine triggers may include emotional stress or depression, or by hormone changes during the menstrual cycle. Other triggers include control pills and other medicines, alcohol or caffeine, foods with tyramine (such as aged cheese, wine), eyestrain, weather changes, missed meals, and lack of sleep or oversleeping. Other causes of headache include: Viral illness with high fever Head injury with concussion Sinus, ear, or throat infection Dental pain and jaw joint (TMJ) pain More serious but less common causes of headache include stroke, brain hemorrhage, brain tumor, meningitis, and encephalitis. Home care Follow these tips when taking care of yourself at home: Don t drive yourself home if you were given pain medicine for your headache. Instead, have someone else drive you home. Try to sleep when you get home. You should feel much better when you wake up. Apply heat to the back of your neck to ease a neck muscle spasm. Take care of a migraine headache by putting an ice pack on your forehead or at the base of your skull. If you have nausea or vomiting, eat a light diet until your headache eases. If you have a migraine headache, use sunglasses when in the daylight or around bright indoor lighting until your symptoms get better. Bright glaring light can make this type of headache worse. Follow-up care Follow up with your healthcare provider, or as advised. Talk with your provider if you have frequent headaches. He or she can help figure out a treatment plan. By knowing the earliest signs of headache, and starting treatment right away, you may be able to stop the pain yourself. When to seek medical advice Call your healthcare provider right away if any of these occur: Your head pain suddenly gets worse after sexual intercourse or strenuous activity Your head pain doesn t get better within 24 hours You aren t able to keep liquids down (repeated vomiting) Fever of 100.4 F (38 C) or higher, or as directed by your healthcare provider Stiff neck Extreme drowsiness, confusion, or fainting Dizziness or dizziness with spinning sensation (vertigo) Weakness in an arm or leg or one side of your face You have trouble talking or seeing 4498-8503 [employer]. [address] [place] [address], [place] [address]. All rights reserved. This information is not intended as a substitute for professional medical care. Always follow your healthcare professional's instructions. Follow Up Care 11/05/2024 06:33:59 With:SMITA BRODERICK DO Address: [address] [place] [phone] When:2-4 days [facility] 11-05-2024 Note Discharge Instructions Thank you for allowing [facility] to assist you with your healthcare needs. The following is important discharge information regarding your hospital visit. Diagnosis from Today's Visit Headache What to Do Next Instructions from Your Care Team No qualifying data available. Post Acute Orders No qualifying data available. You Need to Schedule the Following Appointments Follow Up with SMITA BRODERICK DO When:Within 2-4 days Where:[address] [place] [phone] Allergies Onion Migraines Medications Please ask your primary doctor or pharmacist before taking any other medication not listed, including over the counter drugs, herbal medications, vitamins and or supplements as they may interact with your home medications. What How Much When Instructions Last Dose Unchanged albuterol (albuterol MDI (90 mcg/ inh) CFC free inhalation aerosol) 2 puff(s) by inhalation Every 4 hours Duration: 30 Days ok to fill generic equivalent rescue inhaler Unchanged ALPRAZolam (ALPRAZolam 0.5 mg oral tablet) 1 tab(s) by mouth Once a day as needed for for anxiety Unchanged FLUoxetine (PROzac 20 mg oral capsule) 1 cap by mouth Once a day Please take this list to your next doctor s visit. Bring all medications you take, including over the counter medications, herbals and other supplements with you to your doctor s visit. Patients and families are reminded to discard old lists and to update any records with all medication providers or retail pharmacies. Education Materials Headache, Unspecified A number of things can cause headaches. The cause of your headache isn t clear. But it doesn t seem to be a sign of any serious illness. Headache affects almost everyone at some time. It is the most common reason people miss days from work or school. You could have a tension headache or a migraine headache. Stress can cause a tension headache. This can happen if you tense the muscles of your shoulders, neck, and scalp without knowing it. If this stress lasts long enough, you may develop a tension headache. It is not clear why migraines occur, but certain things called" triggers" can raise the risk of having a migraine attack. Migraine triggers may include emotional stress or depression, or by hormone changes during the menstrual cycle. Other triggers include control pills and other medicines, alcohol or caffeine, foods with tyramine (such as aged cheese, wine), eyestrain, weather changes, missed meals, and lack of sleep or oversleeping. Other causes of headache include: Viral illness with high fever Head injury with concussion Sinus, ear, or throat infection Dental pain and jaw joint (TMJ) pain More serious but less common causes of headache include stroke, brain hemorrhage, brain tumor, meningitis, and encephalitis. Home care Follow these tips when taking care of yourself at home: Don t drive yourself home if you were given pain medicine for your headache. Instead, have someone else drive you home. Try to sleep when you get home. You should feel much better when you wake up. Apply heat to the back of your neck to ease a neck muscle spasm. Take care of a migraine headache by putting an ice pack on your forehead or at the base of your skull. If you have nausea or vomiting, eat a light diet until your headache eases. If you have a migraine headache, use sunglasses when in the daylight or around bright indoor lighting until your symptoms get better. Bright glaring light can make this type of headache worse. Follow-up care Follow up with your healthcare provider, or as advised. Talk with your provider if you have frequent headaches. He or she can help figure out a treatment plan. By knowing the earliest signs of headache, and starting treatment right away, you may be able to stop the pain yourself. When to seek medical advice Call your healthcare provider right away if any of these occur: Your head pain suddenly gets worse after sexual intercourse or strenuous activity Your head pain doesn t get better within 24 hours You aren t able to keep liquids down (repeated vomiting) Fever of 100.4 F (38 C) or higher, or as directed by your healthcare provider Stiff neck Extreme drowsiness, confusion, or fainting Dizziness or dizziness with spinning sensation (vertigo) Weakness in an arm or leg or one side of your face You have trouble talking or seeing 5168-9666 [employer]. [address] [place] [address]. All rights reserved. This information is not intended as a substitute for professional medical care. Always follow your healthcare professional's instructions. Additional Information VACCINATE! IT SAVES LIVES! Members of the community who have not yet received the COVID-19 vaccine and would like to receive it can visit one of [facility] vaccine clinics. There are many vaccine clinic locations within the [facility]. For locations and available times, please visit [email or web address].[place]. gov/. It is important to note that some COVID mobile vaccine clinics are held outdoors and may be canceled in rainy or stormy conditions. To learn more about pediatric vaccinations (ages 5-11), we invite you to visit the [facility] webpage. https://www.[employer].org/p ages/5485-Gnbvt-Oednwofclps-Freq ukzhkl-Hfqtm-Rmvuirfal.html To learn more about the COVID-19 vaccine, we invite you to visit the CDC website for a list of frequently asked questions. https://www.cdc.gov/coronavirus/ 2019-ncov/vaccines/faq.html [facility] Patient Portal Access Instructions: Stay connected with your healthcare team and access your personal medical information anytime with the [facility] Patient Portal. If you would like a full copy of your medical records please contact the [facility] Medical Records Department Tuesday through Tuesday between 8a.m. and 4:30p.m. Please follow the directions below to access the portal: 1.Access the email account you provided upon registration to the [facility].2.Look for an invitation email from [facility].3.Open the email and access the invitation link: Accept Invitation to [facility].Fill in the required lyon to create your account. Sign into [email or web address] with your username and password that you created in the above steps to stay up to date. You can then view a summary of results, a summary of your visits, and the ability to download your summaries to your computer or send the information securely to a physician. Remember that your healthcare information is confidential, so carefully consider who you will allow to register on the [facility] Patient Portal for access to your information. You can also access the [employer] Patient Portal on the Med [employer] roberto. Simply click on "Health Records" under "Health Data" and then click on the [employer] logo. HOW TO SAFELY DISPOSE OF PRESCRIPTION MEDICATIONS Please use one of the following methods to safely dispose of your unused medications. 1.Use a drug disposal kit: the drug disposal pouch allows you to safely discard your old and unused drugs. Ask your nurse to give you one when you are discharged.2.Visit a local take-back location: Many local pharmacies and police departments have programs that collect old and unwanted prescription drugs. Call your local pharmacy or go to http://[employer]MePlease/9N7Yn9a to find one close to you.3.Make use of household items: Use cat litter or old coffee grounds to dispose medications if other options are not available. Mix your drugs with these household products, seal them in an airtight container and throw it into the garbage. [facility]: [phone] to be sure your drugs can be disposed of in this way. Some medicines may require a different approach.4.Never flush your medications down the toilet. IF YOU HAVE BEEN PRESCRIBED AN OPIOIDS FOR PAIN If you have been prescribed an opioid (such as hydrocodone, oxycodone or morphine), it is critical to understand the possible side effects and risks of opioid pain medications. Even when taken as directed, opioids can have several side effects including: Tolerance, meaning you might need to take more of a medication for the same pain relief. Nausea, vomiting and/or constipation. Sleepiness, dizziness, dry mouth, confusion, depression or itching. Physical dependence, meaning you have withdrawal symptoms when a medication is stopped ? this can develop within a few days. KNOW YOUR RESPONSIBILITIES It is important to know exactly how much and how often to take the opioid pain medications you are prescribed. Never take opioids in higher amounts or more often than prescribed. Do not combine opioids with alcohol or other drugs that cause drowsiness, such as benzodiazepines, also known as benzos, including diazepam and alprazolam, muscle relaxants or sleep aids. Never sell or share prescription opioids. This is illegal. Store opioids in a secure place and out of reach of others (including children, family, friends and visitors). The last page(s) of this document has been signed and retained as a CHART COPY Signatures Patient Education Materials Headache, Unspecified Medication Leaflets My discharge plan and instructions have been reviewed and explained to me and I,KIM JUANJOSE M understand my current condition and have read and understand these discharge instructions. I have received a written copy of the plan/instructions. If I have questions, I am aware that I should contact my doctor. 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 Signature: Date/Time: Relationship to Patient: Witness Name/Signature: Date/Time: [facility] 09-14-2023 Evaluation + Plan note Future Scheduled TestsMISC Lab Send out (Blood Specimens) 09/14/23 [facility] 07-28-2023 Hospital Discharg e instructions Patient Education 07/28/2023 18:28:31 Weakness, Lqeh-vg-Conn Weakness Weakness is a lack of strength. You may feel weak all over your body (generalized), or you may feel weak in one part of your body (focal). There are many potential causes of weakness. Sometimes, the cause of your weakness may not be known. Some causes of weakness can be serious, so it is important to see your doctor. Follow these instructions at home: Activity Rest as needed. Try to get enough sleep. Most adults need 7 8 hours of sleep each night. Talk to your doctor about how much sleep you need each night. Do exercises, such as arm curls and leg raises, for 30 minutes at least 2 days a week or as told by your doctor. Think about working with a physical therapist or sports medicine trainer to help you get stronger. General instructions Take jert-qjr-sskdzjv and prescription medicines only as told by your doctor. Eat a healthy, well-balanced diet. This includes: ?Proteins to build muscles, such as lean meats and fish. ?Fresh fruits and vegetables. ?Carbohydrates to boost energy, such as whole grains. Drink enough fluid to keep your pee (urine) pale yellow. Keep all follow-up visits as told by your doctor. This is important. Contact a doctor if: Your weakness does not get better or it gets worse. Your weakness affects your ability to: ?Think clearly. ?Do your normal daily activities. Get help right away if you: Have sudden weakness on one side of your face or body. Have chest pain. Have trouble breathing or shortness of breath. Have problems with your vision. Have trouble talking or swallowing. Have trouble standing or walking. Are light-headed. Pass out (lose consciousness). Summary Weakness is a lack of strength. You may feel weak all over your body or just in one part of your body. There are many potential causes of weakness. Sometimes, the cause of your weakness may not be known. Rest as needed, and try to get enough sleep. Most adults need 7 8 hours of sleep each night. Eat a healthy, well-balanced diet. This information is not intended to replace advice given to you by your health care provider. Make sure you discuss any questions you have with your health care provider. Document Released: 09/01/2009 Document Revised: 04/25/2019 Document Reviewed: 04/25/2019 [employer] Patient Education 2020 [employer] Follow Up Care 07/27/2023 23:33:08 With:SMITA BRODERICK DO Address: [address] [place] [phone] When:3-5 days Comments:Please call to schedule your post-hospital appointment with your doctor. [facility] 07-28-2023 Note Discharge Instructions Thank you for allowing [facility] to assist you with your healthcare needs. The following is important discharge information regarding your hospital visit. Your Care Team SMITA BRODERICK DO PRASHANT ARDON APRN Your Diagnosis History of migraine Unilateral weakness Weakness or fatigue What to do next Follow Up Appointments Follow Up with SMITA BRODERICK DO When Within 3-5 days Why: Please call to schedule your post-hospital appointment with your doctor. Where: [address] [place] [address] [phone] The Following Activity and Diet Have Been Ordered for You Discharge Activity - Ordered -- Resume your pre-hospitalization activity, 07/28/23 12:36:00 EDT Discharge Diet - Ordered -- No changes were made to your diet during your hospital stay. Please resume your pre hospitalization diet on discharge., 07/28/23 12:36:00 EDT The Following Equipment Has Been Ordered for You No qualifying data available. The Following Treatments Have Been Ordered for You Discharge Labs No qualifying data available. Discharge Radiology No qualifying data available. Other Therapies No qualifying data available. Post Acute Orders No qualifying data available. Allergies Onion (Migraines) Medications Please ask your primary doctor or pharmacist before taking any other medication not listed, including over the counter drugs, herbal medications, vitamins and or supplements as they may interact with your home medications. What How Much When Instructions Last Dose Unchanged albuterol (albuterol MDI (90 mcg/ inh) CFC free inhalation aerosol) 2 puff(s) by inhalation Every 4 hours Duration: 30 Days ok to fill generic equivalent rescue inhaler Unchanged ALPRAZolam (ALPRAZolam 0.5 mg oral tablet) 1 tab(s) by mouth Once a day as needed for for anxiety Unchanged FLUoxetine (PROzac 20 mg oral capsule) 1 cap by mouth Once a day TODAY @ 10AM Please take this list to your next doctor s visit. Bring all medications you take, including over the counter medications, herbals and other supplements with you to your doctor s visit. Patients and families are reminded to discard old lists and to update any records with all medication providers or retail pharmacies. Education Materials Weakness Weakness is a lack of strength. You may feel weak all over your body (generalized), or you may feel weak in one part of your body (focal). There are many potential causes of weakness. Sometimes, the cause of your weakness may not be known. Some causes of weakness can be serious, so it is important to see your doctor. Follow these instructions at home: Activity Rest as needed. Try to get enough sleep. Most adults need 7 8 hours of sleep each night. Talk to your doctor about how much sleep you need each night. Do exercises, such as arm curls and leg raises, for 30 minutes at least 2 days a week or as told by your doctor. Think about working with a physical therapist or sports medicine trainer to help you get stronger. General instructions Take lvtx-ayo-jbjqpbz and prescription medicines only as told by your doctor. Eat a healthy, well-balanced diet. This includes: ? Proteins to build muscles, such as lean meats and fish. ? Fresh fruits and vegetables. ? Carbohydrates to boost energy, such as whole grains. Drink enough fluid to keep your pee (urine) pale yellow. Keep all follow-up visits as told by your doctor. This is important. Contact a doctor if: Your weakness does not get better or it gets worse. Your weakness affects your ability to: ? Think clearly. ? Do your normal daily activities. Get help right away if you: Have sudden weakness on one side of your face or body. Have chest pain. Have trouble breathing or shortness of breath. Have problems with your vision. Have trouble talking or swallowing. Have trouble standing or walking. Are light-headed. Pass out (lose consciousness). Summary Weakness is a lack of strength. You may feel weak all over your body or just in one part of your body. There are many potential causes of weakness. Sometimes, the cause of your weakness may not be known. Rest as needed, and try to get enough sleep. Most adults need 7 8 hours of sleep each night. Eat a healthy, well-balanced diet. This information is not intended to replace advice given to you by your health care provider. Make sure you discuss any questions you have with your health care provider. Document Released: 09/01/2009 Document Revised: 04/25/2019 Document Reviewed: 04/25/2019 [employer] Patient Education 2020 [employer] Additional Information VACCINATE! IT SAVES LIVES! Members of the community who have not yet received the COVID-19 vaccine and would like to receive it can visit one of [facility] vaccine clinics. There are many vaccine clinic locations within the [facility]. For locations and available times, please visit https://[email or web address].[place].gov/. It is important to note that some COVID mobile vaccine clinics are held outdoors and may be canceled in rainy or stormy conditions. To learn more about pediatric vaccinations (ages 5-11), we invite you to visit the [facility] webpage. https://www.[employer]s.org/p ages/9047-Zsptq-Qxjhtyrlpam-Freq pvgyfp-Ygbgj-Lbfzxhdpn.html To learn more about the COVID-19 vaccine, we invite you to visit the CDC website for a list of frequently asked questions.https://www.cdc.gov/co ronavirus/2019-ncov/vaccines/faq .html [facility] Patient Portal Access Instructions: Stay connected with your healthcare team and access your personal medical information anytime with the [facility] Patient Portal. Please follow the directions below to create your [facility] account: 1.Access the email account you provided upon registration to the hospital/physician office.2.Look for an invitation email from [facility].3.Open the email and access the invitation link: Accept Invitation to [facility].4.Fill in the required lyon to create your account. To access your account, visit [employer]. Click the blue button labeled "Access Patient Portal" and then log in with the username and password that you created in the steps above. You will be able to view your test results, lab results, a summary of your visits, upcoming appointments and more. There is also a convenient messaging option where you can send secure messages to your provider. In addition, you will have the ability to download any documents or summaries to your computer and/or send the information securely to a physician. Remember that your healthcare information is confidential, so carefully consider who you will allow to register on the [facility] Patient Portal for access to your information. You can also access the [facility] Patient Portal on the [employer] roberto. Simply click on "Patient Portal" and then log into your account. If you would like to receive a full copy of your medical records, please contact the [facility] Medical Records Department by calling [phone], Tuesday through Tuesday between 8 a.m. and 4:30 p.m. HOW TO SAFELY DISPOSE OF PRESCRIPTION MEDICATIONS Please use one of the following methods to safely dispose of your unused medications. 1.Use a drug disposal kit: the drug disposal pouch allows you to safely discard your old and unused drugs. Ask your nurse to give you one when you are discharged.2.Visit a local take-back location: Many local pharmacies and police departments have programs that collect old and unwanted prescription drugs. Call your local pharmacy or go to http://[employer]MePlease/4C9Zx2m to find one close to you.3.Make use of household items: Use cat litter or old coffee grounds to dispose medications if other options are not available. Mix your drugs with these household products, seal them in an airtight container and throw it into the garbage. Call [facility]: [phone] to be sure your drugs can be disposed of in this way. Some medicines may require a different approach.4.Never flush your medications down the toilet. IF YOU HAVE BEEN PRESCRIBED AN OPIOID FOR PAIN If you have been prescribed an opioid (such as hydrocodone, oxycodone or morphine), it is critical to understand the possible side effects and risks of opioid pain medications. Even when taken as directed, opioids can have several side effects including: Tolerance, meaning you might need to take more of a medication for the same pain relief. Nausea, vomiting and/or constipation. Sleepiness, dizziness, dry mouth, confusion, depression or itching. Physical dependence, meaning you have withdrawal symptoms when a medication is stopped, can develop within a few days. KNOW YOUR RESPONSIBILITIES It is important to know exactly how much and how often to take the opioid pain medications you are prescribed. Never take opioids in higher amounts or more often than prescribed. Do not combine opioids with alcohol or other drugs that cause drowsiness, such as benzodiazepines, also known as benzos, including diazepam and alprazolam, muscle relaxants or sleep aids. Never sell or share prescription opioids. This is illegal. Store opioids in a secure place and out of reach of others (including children, family, friends and visitors). The last page of this document has been signed and retained as a CHART COPY. Signatures Patient Education Materials Weakness, [employer] Medication Leaflets My discharge plan and instructions have been reviewed and explained to me and IKIM DANIELLE M understand my current condition and have read and understand these discharge instructions. I have received a written copy of the plan/instructions. If I have questions, I am aware that I should contact my doctor. 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 Signature: Date/Time: Relationship to Patient: Witness Name/Signature: Date/Time: [facility] 07-28-2023 Evaluation + Plan note Extrac dana from: Title:History and Physical Author:PRASHANT ARDON COUTURE DRESSMAKER-BLOCK CLEANER Date:07/28/23 1. Unilateral weakness 2. History of migraine Right-sided weakness MRI ordered due to concern for CVA. This was negative for any acute process. Therapy was consulted and patient was noted to be slightly weaker on the right-hand side. Remainder of eval was unremarkable. Patient may benefit from follow-up with neurology. Consider hemiplegic migraine. History of migraine with aura patient states that the sensations are different from what she normally experiences. Again encouraged patient to follow-up with neurology. DVT prophylaxis: Mobility Code Status: Full code Plan of care discussed with patient. All questions answered. Patient verbalizes understanding is agreeable to plan of care. This dictation was performed using voice recognition software and may include grammatical and/or spelling errors. [facility] 10-26-2023 Note Date of Service 07/28/2023 Chief Complaint Patient states she started not feeling well around 2200 this evening, Patients states he noticed she had some weakness on her right side History of Present Illness 33-year-old female with past medical history significant for anxiety/depression, migraine with aura, vitamin D deficiency, obesity. Patient presented to [facility] emergency department on 07/27/2023 with onset of right-sided weakness, tingling sensation in her fingers, no recollection of driving home. CT head was negative for acute abnormality. CTA head and neck showed no LVO or significant stenosis. She had a telehealth n eurology consult with recommendation for MRI. Neurology felt that this was more likely a complex migraine. Labs were all mostly unremarkable. TSH was 4.67. Upon arrival her blood pressure was 146/93 but then returned to the 1 teens. She was afebrile with adequate oxygen saturations on room air. On exam today, pt denies any fever or chills. No headache or dizziness. Denies chest pain, palpitations. No cough, dyspnea, sputum production. Denies N/V/D/C. No melena/hematochezia. No dysuria or hematuria. Tingling that is intermittent in the tips of her right fingers. Right upper extremity and right lower extremity weakness. Patient has no neck pain or discomfort, no history of spinal issues. Has not seen a chiropractor in many years. Review of Systems See HPI for specific ROS. All other systems reviewed and negative. Physical Exam Vitals and Measurements T: 36.7 C (Oral) TMIN: 36.5 C (Oral) TMAX: 36.7 C (Oral) HR: 60(Apical) RR: 20 BP: 119/82 SpO2: 96%HT: 170.2 cm WT: 113.8 kg BMI: 39.28 Weight Dosing Weight: 113.8 kg (07/28/23) Dosing Weight: 113.8 kg (07/28/23) GEN: Appears chronically ill EYES: No conjunctival erythema, drainage. EOMI EARS: Hearing grossly intact. NOSE: No nasal discharge. THROAT: Oral cavity and pharynx pink and moist. CHEST: Normal S1 and S2. Rhythm is regular. Clear to auscultation, without rales, rhonchi, wheezing. ABD: Positive bowel sounds x 4 quads. Soft, nondistended, nontender. EXT: No significant deformity or joint abnormality. Right-sided weakness. No edema. Peripheral pulses intact. Negative Spurling's. NEURO: Sensation grossly intact. Neuro exam unremarkable. SKIN: Skin color normal PSYCH: The mental examination revealed the patient was alert and oriented x 4 Lab Results 07/28 06:02 WBC: 8.8 Hgb: 11.3 L Hct: 33.3 L Platelet: 233 Neutrophil %: 65.1 Glucose Level: 98 Sodium Level: 142 Potassium Level: 4.1 BUN: 7 Creatinine Lvl (s): 0.77 07/27 23:54 WBC: 10.7 Hgb: 13.5 Hct: 40.4 Platelet: 294 Neutrophil %: 71.2 Protime: 12.0 PT International Ratio: 1.0 Glucose Level: 101 Sodium Level: 138 Potassium Level: 4.2 BUN: 10 Creatinine Lvl (s): 0.90 Imaging Results and Diagnostics MRI Brain w/o Contrast Result Date: July 28, 2023 Verified By: DIEGO PAUL MD CLINICAL STATEMENT: IMPRESSION: Normal examination of the brain CT Head or Brain w/o Contrast Result Date: July 27, 2023 Verified By: VIDAL SMITH MD CLINICAL STATEMENT: IMPRESSION: No acute intracranial abnormality. Findings were discussed with Dr. Thompson at 12:10 a.m. on 07/28/2023. I have personally reviewed the images of this examination and agree with theresident's findings and interpretation. CT Angiography Neck w/ Contrast Result Date: July 27, 2023 Verified By: ATIF CASILLAS MD CLINICAL STATEMENT: IMPRESSION: Patent CTA of the neck with no significant abnormality. CT Angiography Head w/ Contrast Result Date: July 27, 2023 Verified By: VIDAL SMITH MD CLINICAL STATEMENT: IMPRESSION: Unremarkable CTA of the head. XR Chest 1 View Result Date: July 27, 2023 Verified By: EDUARD VELAZQUEZ MD CLINICAL STATEMENT: IMPRESSION: No acute radiographic process. I have personally reviewed the images of this examination, and agree with theresident's findings and interpretation. EKG EC07/28/23: Sinus rhythm Abnormal inferior Q waves SEE DICTATION Electronic Signature: CHIVO THOMPSON MD 07/28/2023 00:19:08 Assessment/Plan 1. Unilateral weakness 2. History of migraine Right-sided weakness MRI ordered due to concern for CVA. This was negative for any acute process. Therapy was consulted and patient was noted to be slightly weaker on the right-hand side. Remainder of eval was unremarkable. Patient may benefit from follow-up with neurology. Consider hemiplegic migraine. History of migraine with aura patient states that the sensations are different from what she normally experiences. Again encouraged patient to follow-up with neurology. DVT prophylaxis: Mobility Code Status: Full code Plan of care discussed with patient. All questions answered. Patient verbalizes understanding is agreeable to plan of care. This dictation was performed using voice recognition software and may include grammatical and/or spelling errors. Problem List/Past Medical History Ongoing Anxiety depression Fatigue Hypothyroidism Migraine Myalgia Obesity Obesity with body mass index (BMI) of 30.0 to 39.9 Restless legs syndrome Screening for ischemic heart disease Vitamin D deficiency Well adult exam Historical No qualifying data Procedure/Surgical History Cholecystectomy: 12/2006 Oral surgery Medications Home Medications (3) Active albuterol MDI (90 mcg/inh) CFC free inhalation aerosol 2 puff(s), Inhalation, q4h ALPRAZolam 0.5 mg oral tablet 0.5 mg = 1 tab(s), PRN, Oral, qDay PROzac 20 mg oral capsule 20 mg = 1 cap(s), Oral, qDay Allergies Onion (Migraines) Social History Smoking Status - 12/18/2017 Never smoker Alcohol Frequency: 1-2 times per month., 05/25/2019 Home/Environment Living situation: Home/Independent., 05/25/2019 Nutrition/Health Caffeine intake amount: 1-2 daily., 10/10/2020 Substance Abuse Use: Never., 05/25/2019 Tobacco Nicotine Use: Former smoker, quit more than 30 days ago. Exposure to Tobacco Smoke Lives in non-smoking home. Type: uses a vape pen, couple times a day., 10/10/2020 Family History Blood clot: Father. Breast cancer: Grandparent. Colon cancer: Mother. Depression: Mother and Sister. Diabetes: Father and Grandparent. Heart attack: Father and Grandparent. Hyperlipidemia: Father and Grandparent. Hypertension: Father and Grandparent. Liver disease: Mother. Lymphoma (clinical): Grandparent. Migraine: Grandparent. Thyroid disorder: Mother and Sister. Immunizations hepatitis B adult vaccine: 1 unknown unit (05/09/17) hepatitis B adult vaccine: 0 unknown unit (12/07/16) hepatitis B adult vaccine: 0 unknown unit (11/05/16) SARS-CoV-2 mRNA (tozinameran) vaccine: 0 unknown unit (09/22/20) tetanus/diphth/pertuss (Tdap) adult/adol: 0 unknown unit (11/18/15) tetanus/diphth/pertuss (Tdap) adult/adol: 0 unknown unit (07/03/15) tetanus/diphth/pertuss (Tdap) adult/adol: 0 unknown unit (07/02/15) Code Status Code Status - Ordered -- 07/28/23 2:21:00 EDT, Full Code, Constant Order Digitally Signed by PRASHANT RADON APRN-RODOLFO on 07/28/2023 01:06 PM [facility]10-26-2023 Nurse Progress note This chart was reviewed for stroke certification purposes and tracking. Digitally Signed by MACIEL Sandhu on 07/28/2023 11:07 AM [facility]10-26-2023 Note* Exam Date Time Procedure Performing Provider Status 07/28/23 9:49 AM Echocardiogram, Adul t w Bubble St ([facility]) Auth (Verified) [facility] 10-26-2023 Note ORIGINAL HISTORY: TIA COMPARISON: Previous day TECHNIQUE: 1. Sagittal T1-weighted images. 2. Axial T2-weighted and T2*-weighted images. 3. Axial FLAIR images. 4. Axial diffusion-weighted images with ADC map. FINDINGS: The ventricles and sulci are normal in size and configuration. There are no abnormal intra or extra-axial fluid collections. Waddell-white matter differentiation is maintained. There is no abnormal restriction of diffusion. The orbital contents are normal in appearance. There is mild ethmoid and frontal sinus disease. IMPRESSION: Normal examination of the brain Interpreted by: Diego Paul MD Preliminary Report By: Diego Paul MD Electronically signed By Diego Paul MD Dictated Date: 07/28/2023 9:11:13 AM Prelim Date: 07/28/2023 9:12:59 AM Sign Date: 07/28/2023 9:12:59 AM Ordering Provider[facility] Nurse Progress note STEM paged at [phone] as a consult then escalated to a video consult at [phone]. Was told video call would be received within the next 15 min. No call was received within that time, call was placed again, registration was told we should receive a call again within 15 min. No call was received within thattime. Two more call were made to attempt to receive a video call, after 5th call Neuro provider called ER physician at nurses station and ER physician requested a video call be made to evaluate the patient. Video call was then made at that time. Digitally Signed by Bernadette Grady RN on 07/28/2023 07:20 AM [facility]10-26-2023 Neurology Consult note Patient Telehealth Consent Consent: I have obtained verbal consent from my patient prior to my evaluation and treatment via virtual visit with visual and audio Telehealth Platform: Virtual visit with visual and audio Location of Patient: ED Chief Complaint Patient states she started not feeling well around 2200 this evening, Patients states he noticed she had some weakness on her right side History of Present Illness 33 yo woman was driving home when he had a tingling sensation in her right arm . she got home and felt speech was slurred. She also endorses some visual Change in a crescentic shaped in her vision. Upon arrival to the emergency room she had some minor weakness of the right upper extremity with drift but all other symptoms had abated. when asked specifically if there was numbness she states that there was a tingling sensation like a pins and needles. Along with all of this was a sense offeeling as though she was high. she does endorse some dull aching in her head but not severe as herusual migraines. Physical Exam Vitals and Measurements T: 36.5 C (Oral) HR: 66 RR: 20 BP: 146/93 SpO2: 98% HT: 170.2 cm WT: 109.1 kg Weight Dosing Weight: 109.1 kg (07/27/23) NEUROLOGICAL EXAMINATION: MENTAL STATUS: Alert and oriented to person, place and time. Obeyed simple and complex commands. Immediate recall, short term and director long term care memory all examined and were normal. LANGUAGE: Intact to comprehension, fluency, naming, repetition CRANIAL NERVES: Pupils equal, round andAC reactive to light Extraocular muscles intact. Visual lyon full. bilaterally. No facial asymmetry. No sensory deficit. Tongue midline. MOTOR: Normal bulk and tone. No atrophy or fasciculations. Strength normal in all extremities at 5/5. COORDINATION: [id number], rapid alternating movement normal bilaterally. SENSORY: Intact to light touch Lab Results 07/27 23:54 WBC: 10.7 Hgb: 13.5 Hct: 40.4 Platelet: 294 Neutrophil %: 71.2 Protime: 12.0 PT International Ratio: 1.0 Glucose Level: 101 Sodium Level: 138 Potassium Level: 4.2 BUN: 10 Creatinine Lvl (s): 0.90 Imaging Results and Diagnostics CT h and CTHN EKG EC07/28/23: Sinus rhythm Abnormal inferior Q waves SEE DICTATION Electronic Signature: CHIVO THOMPSON MD 07/28/2023 00:19:08 Assessment and Plan Slow onset of paresthesias, visual perception dissociation, and visual anomalies more suggestive ofmigraine aura than cerebrovascular event Recommendations the patient has a longstanding history of migraines and since this is the 1st event to have happened to her such as this it is reasonable to have her admitted for an MRI of the brain. If this is negative then she can be DC to home. In the remote possibility that the MRI be positive for cerebral infarction the echocardiogram with bubble study will be imperative and perhaps she will require transesophageal echo. Problem List/Past Medical History Ongoing Anxiety depression Fatigue Hypothyroidism Migraine Myalgia Obesity Obesity with body mass index (BMI) of 30.0 to 39.9 Restless legs syndrome Screening for ischemic heart disease Vitamin D deficiency Well adult exam Historical No qualifying data Procedure/Surgical History Cholecystectomy: 12/2006 Oral surgery Medications Inpatient No active inpatient medications Home albuterol MDI (90 mcg/inh) CFC free inhalation aerosol, 2 puff(s), Inhalation, q4h albuterol MDI (90 mcg/inh) CFC free inhalation aerosol, 2 puff(s), Inhalation, q4h Vitamin D3 50,000 intl units (1250 mcg) oral capsule, 18424 International_Unit= 1 cap(s), Oral, qWeek, 3 refills Zofran ODT use ondansetron oral tablet, disintegrating , 8 mg, Oral, BID Allergies Onion (Migraines) Social History Smoking Status - 12/18/2017 Never smoker Alcohol Frequency: 1-2 times per month., 05/25/2019 Home/Environment Living situation: Home/Independent., 05/25/2019 Nutrition/Health Caffeine intake amount: 1-2 daily., 10/10/2020 Substance Abuse Use: Never., 05/25/2019 Tobacco Nicotine Use: Former smoker, quit more than 30 days ago. Exposure to Tobacco Smoke Lives in non-smoking home. Type: uses a vape pen, couple times a day., 10/10/2020 Family History Blood clot: Father. Breast cancer: Grandparent. Colon cancer: Mother. Depression: Mother and Sister. Diabetes: Father and Grandparent. Heart attack: Father and Grandparent. Hyperlipidemia: Father and Grandparent. Hypertension: Father and Grandparent. Liver disease: Mother. Lymphoma (clinical): Grandparent. Migraine: Grandparent. Thyroid disorder: Mother and Sister. Total Time of Visit 31 Digitally Signed by RAMON STAPLETON MD on 07/28/2023 01:41 AM [facility]10-26-2023 Note ORIGINAL EXAMINATION: ONE XRAY VIEW OF THE CHEST 07/28/2023 12:49 am COMPARISON: None HISTORY: ORDERING SYSTEM PROVIDED HISTORY: Reason for Exam: chest pain/SOB FINDINGS: The cardiomediastinal silhouette is within normal limits. No consolidation, pleural effusion, vascular congestion or pneumothorax. No acute osseous abnormality. IMPRESSION: No acute radiographic process. I have personally reviewed the images of this examination, and agree with the resident's findings and interpretation. Interpreted by: Eduard Velazquez MD Preliminary Report By: Brandi Avila Electronically signed By Eduard Velazquez MD Dictated Date: 07/28/2023 12:52:04 AM Prelim Date: 07/28/2023 12:53:39 AM Sign Date: 07/28/2023 12:54:31 AM Ordering Provider: CHIVO [facility]10-26-2023 Note ORIGINAL EXAMINATION: CTA OF THE NECK 07/28/2023 12:36 am TECHNIQUE: CTA of the neck was performed with the administration of intravenous contrast. Multiplanar reformatted images are provided for review. MIP images are provided for review. Stenosis of the internal carotid arteries measured using NASCET criteria. Automated exposure control, iterative reconstruction, and/or weight based adjustment of the mA/kV was utilized to reduce the radiation dose to as low as reasonably achievable. COMPARISON: None. HISTORY: ORDERING SYSTEM PROVIDED HISTORY: Reason for Exam: Stroke Emergency FINDINGS: AORTIC ARCH/ARCH VESSELS: No dissection or arterial injury. No significant stenosis of the brachiocephalic or subclavian arteries. CAROTID ARTERIES: No dissection, arterial injury, or hemodynamically significant stenosis by NASCET criteria. VERTEBRAL ARTERIES: Co dominant and mildly tortuous. No dissection, arterial injury, or significant stenosis. SOFT TISSUES: The lung apices are clear. There are prominent right greater than left cervical chain lymph nodes, however not pathologically enlarged, nonspecific. The larynx and pharynx are unremarkable. No acute abnormality of the salivary and thyroid glands. BONES: No acute osseous abnormality. IMPRESSION: Patent CTA of the neck with no significant abnormality. Interpreted by: Atif Casillas Preliminary Report By: Atif Casillas Electronically signed By Atif Casillas Dictated Date: 07/28/2023 12:38:30 AM Prelim Date: 07/28/2023 12:41:55 AM Sign Date: 07/28/2023 12:41:55 AM Ordering Provider: CHIVO [facility]10-26-2023 NoteSinus rhythm Abnormal inferior Q waves SEE DICTATION Electronic Signature: HCIVO THOMPSON MD 07/28/2023 00:19:08[facility] 10-26-2023 Note ORIGINAL EXAMINATION: CTA OF THE HEAD WITH CONTRAST 07/28/2023 12:51 am: TECHNIQUE: CTA of the head/brain was performed with the administration of intravenous contrast. Multiplanar reformatted images are provided for review. MIP images are provided for review. Automated exposure control, iterative reconstruction, and/or weight based adjustment of the mA/kV was utilized to reduce the radiation dose to as low as reasonably achievable. COMPARISON: CT head performed same day HISTORY: ORDERING SYSTEM PROVIDED HISTORY: Reason for Exam: Stroke Emergency FINDINGS: ANTERIOR CIRCULATION: No significant stenosis of the intracranial internal carotid, anterior cerebral, or middle cerebral arteries. No aneurysm. POSTERIOR CIRCULATION: No significant stenosis of the vertebral, basilar, or posterior cerebral arteries. No aneurysm. IMPRESSION: Unremarkable CTA of the head. Interpreted by: Vidal Smith Preliminary Report By: Vidal Smith Electronically signed By Vidal Smith Dictated Date: 07/28/2023 12:52:47 AM Prelim Date: 07/28/2023 12:57:06 AM Sign Date: 07/28/2023 12:57:06 AM Ordering Provider: CHIVO [facility]10-26-2023 Note ORIGINAL EXAMINATION: CT OF THE HEAD WITHOUT CONTRAST 07/28/2023 12:04 am TECHNIQUE: CT of the head was performed without the administration of intravenous contrast. Automated exposure control, iterative reconstruction, and/or weight based adjustment of the mA/kV was utilized to reduce the radiation dose to as low as reasonably achievable. COMPARISON: None. HISTORY: ORDERING SYSTEM PROVIDED HISTORY: Reason for Exam: VISION CHANGES, MEMORY PROBLEMS, PATIENT STATES SHE FEELS DRUGGED. change in mental status/weakness/aphasia FINDINGS: BRAIN/VENTRICLES: There is no acute intracranial hemorrhage, mass effect or midline shift. No abnormal extra-axial fluid collection. The waddell-white differentiation is maintained without evidence of an acute infarct. There is no evidence of hydrocephalus. ORBITS: The visualized portion of the orbits demonstrate no acute abnormality. Nonspecific mild tortuosity to the optic nerves. SINUSES: The visualized paranasal sinuses and mastoid air cells demonstrate no acute abnormality. SOFT TISSUES/SKULL: No acute abnormality of the visualized skull or soft tissues. IMPRESSION: No acute intracranial abnormality. Findings were discussed with Dr. Thompson at 12:10 a.m. on 07/28/2023. I have personally reviewed the images of this examination and agree with the resident's findings and interpretation. Interpreted by: Vidal Smith Preliminary Report By: Brandi Avila Electronically signed By Vidal Smith Dictated Date: 07/28/2023 12:06:34 AM Prelim Date: 07/28/2023 12:11:40 AM Sign Date: 07/28/2023 12:27:10 AM Ordering Provider: [facility]06-04-2023 NoteHNO ID: [id number] Author: Fabio Vann APRN.BLOCK CLEANER Service: ? Author Type: Nurse Practitioner Type: Progress Notes Filed: 03/06/2023 1:40 PM Note Text: Subjective HPI Nontoxic-appearing female presents urgent care chief complaint nasal congestion and cough. Duration of symptoms 2 days. Associated symptoms nasal congestion cough loss of voice. Sick contacts children similar signs symptoms. No OTC medication use. No significant pain. States throat is slightly scratchy. History of strep this does not feel similar. Denies any fever body aches chills productive cough chest pain shortness of breath pleuritic pain hemoptysis nausea vomiting abdominal pain change in bowel or bladder habits. Past medical history prescription medication use and allergies reviewed. .Patient presents with: Nasal Congestion: With cough and lost voice x 2 days PAST MEDICAL HISTORY Diagnosis Date Anemia, unspecified Atypical squamous cells cannot exclude high grade squamous intraepithelial lesion on cytologic smear of cervix (ASC-H) 06/02/2021 Chronic cholecystitis Depression depression/anxiety, on treatment in past, took herself off Dysthymic disorder Depression (non-psychotic) Gestational diabetes mellitus, class A1 07/14/2015 Gestational diabetes mellitus, class A1 07/14/2015 Monster's thyroiditis Monster's thyroiditis Hypoglycemia, unspecified Infertility, female not officially diagnosed; took 5 years to get Migraine, unspecified, with intractable migraine, so stated, without mention of status migrainosus Migraine Ovarian cyst Ruptured PAST SURGICAL HISTORY Procedure Laterality Date EXTRACTION, ERUPTED TOOTH OR EXPOSED ROOT (ELEVATION AND/OR FORCEPS REMOVAL) 01/17/2008 wisdom teeth INSERTION OF IUD 03/04/2017 LAPS SURG CHOLECYSTECTOMY W/CHOLANGIOGRAPHY 02/09/08 ALLERGIES Onions [Other] MEDICATIONS levonorgestrel (MIRENA) 20 mcg/24 hr (5 years) IUD Inserted in office ACETAMINOPHEN (TYLENOL ORAL) Take by mouth. prn Orlistat 60 mg capsule Take 1 capsule by mouth three times daily with meals. (Patient not taking: Reported on 03/06/2023) FAMILY HISTORY Problem Relation Age of Onset Thyroid Mother Grave's disease Cancer Mother colon; spread to liver Diabetes Father Emphysema Father Heart Father Hypertension Father Lipids Father Thyroid Sister Breast Cancer Maternal Grandmother Cancer Maternal Grandfather LYMPHOMA Diabetes Paternal Grandfather Heart Paternal Grandfather Hypertension Paternal Grandfather Lipids Paternal Grandfather Psychiatry Maternal Aunt DEPRESSION Social History Tobacco Use Smoking status: Former Types: Cigarettes Quit date: 07/23/2008 Years since quittin.6 Smokeless tobacco: Never Tobacco comments: she smoked for 6 months only Vaping Use Vaping Use: Never used Substance Use Topics Alcohol use: Yes Comment: socially; not while Drug use: No BP 118/80 Pulse 76 Temp 36.6 ?C (97.9 ?F) Resp 16 Wt 111.1 kg (245 lb) LMP 05/11/2015 SpO2 98% BMI 38.37 kg/m? Review of Systems Constitutional: Negative for chills, fever and malaise/fatigue. HENT: Positive for congestion and sore throat. Negative for ear discharge, ear pain and sinus pain. Eyes: Negative for blurred vision, pain, discharge and redness. Respiratory: Positive for cough. Negative for hemoptysis, sputum production, shortness of breath, wheezing and stridor. Cardiovascular: Negative for chest pain. Gastrointestinal: Negative for abdominal pain, diarrhea, nausea and vomiting. Musculoskeletal: Negative for myalgias. Skin: Negative for itching and rash. Neurological: Negative for dizziness and headaches. Objective Physical Exam Constitutional: General: She is not in acute distress. Appearance: She is not diaphoretic. HENT: Head: Normocephalic. Right Ear: Tympanic membrane, ear canal and external ear normal. Left Ear: Tympanic membrane, ear canal and external ear normal. Nose: Nose normal. Mouth/Throat: Mouth: Mucous membranes are moist. Pharynx: Oropharynx is clear. No oropharyngeal exudate or posterior oropharyngeal erythema. Eyes: Conjunctiva/sclera: Conjunctivae normal. Pupils: Pupils are equal, round, and reactive to light. Cardiovascular: Rate and Rhythm: Normal rate and regular rhythm. Heart sounds: Normal heart sounds. Pulmonary: Effort: Pulmonary effort is normal. No tachypnea, accessory muscle usage or respiratory distress. Breath sounds: Normal breath sounds. No stridor. No wheezing, rhonchi or rales. Abdominal: Palpations: Abdomen is soft. Tenderness: There is no abdominal tenderness. Musculoskeletal: Cervical back: Normal range of motion and neck supple. No rigidity or tenderness. Lymphadenopathy: Cervical: Cervical adenopathy present. Skin: General: Skin is warm and dry. Neurological: Mental Status: She is alert and oriented to person, place, and (more content not included)...[facility]06-04-2023 History of Present illness Narrative* Fabio Vann APRN.[facility] - 03/06/2023 1:21 PM EDT Subjective HPI Nontoxic-appearing female presents urgent care chief complaint nasal congestion and cough. Durationof symptoms 2 days. Associated symptoms nasal congestion cough loss of voice. Sick contacts children similar signs symptoms. No OTC medication use. No significant pain. States throat is slightly scratchy. History of strep this does not feel similar. Denies any fever body aches chills productive cough chest pain shortness of breath pleuritic pain hemoptysis nausea vomiting abdominal pain change inbowel or bladder habits. Past medical history prescription medication use and allergies reviewed. .Patient presents with: Nasal Congestion: With cough and lost voice x 2 days PAST MEDICAL HISTORY Diagnosis Date Anemia, unspecified Atypical squamous cells cannot exclude high grade squamous intraepithelial lesion on cytologic smear of cervix (ASC-H) 06/02/2021 Chronic cholecystitis Depression depression/anxiety, on treatment in past, took herself off Dysthymic disorder Depression (non-psychotic) Gestational diabetes mellitus, class A1 07/14/2015 Gestational diabetes mellitus, class A1 07/14/2015 Monster's thyroiditis Monster's thyroiditis Hypoglycemia, unspecified Infertility, female not officially diagnosed; took 5 years to get Migraine, unspecified, with intractable migraine, so stated, without mention of status migrainosus Migraine Ovarian cyst Ruptured PAST SURGICAL HISTORY Procedure Laterality Date EXTRACTION, ERUPTED TOOTH OR EXPOSED ROOT (ELEVATION AND/OR FORCEPS REMOVAL) 01/17/2008 wisdom teeth INSERTION OF IUD 03/04/2017 LAPS SURG CHOLECYSTECTOMY W/CHOLANGIOGRAPHY 02/09/08 ALLERGIES Onions [Other] MEDICATIONS levonorgestrel (MIRENA) 20 mcg/24 hr (5 years) IUD Inserted in office ACETAMINOPHEN (TYLENOL ORAL) Take by mouth. prn Orlistat 60 mg capsule Take 1 capsule by mouth three times daily with meals. (Patient not taking: Reported on 03/06/2023) FAMILY HISTORY Problem Relation Age of Onset Thyroid Mother Grave's disease Cancer Mother colon; spread to liver Diabetes Father Emphysema Father Heart Father Hypertension Father Lipids Father Thyroid Sister Breast Cancer Maternal Grandmother Cancer Maternal Grandfather LYMPHOMA Diabetes Paternal Grandfather Heart Paternal Grandfather Hypertension Paternal Grandfather Lipids Paternal Grandfather Psychiatry Maternal Aunt DEPRESSION Social History Tobacco Use Smoking status: Former Types: Cigarettes Quit date: 07/23/2008 Years since quittin.6 Smokeless tobacco: Never Tobacco comments: she smoked for 6 months only Vaping Use Vaping Use: Never used Substance Use Topics Alcohol use: Yes Comment: socially; not while Drug use: No BP 118/80 Pulse 76 Temp 36.6 C (97.9 F) Resp 16 Wt 111.1 kg (245 lb) LMP 05/11/2015 SpO2 98% BMI 38.37 kg/m Review of Systems Constitutional: Negative for chills, fever and malaise/fatigue. HENT: Positive for congestion and sore throat. Negative for ear discharge, ear pain and sinus pain. Eyes: Negative for blurred vision, pain, discharge and redness. Respiratory: Positive for cough. Negative for hemoptysis, sputum production, shortness of breath, wheezing and stridor. Cardiovascular: Negative for chest pain. Gastrointestinal: Negative for abdominal pain, diarrhea, nausea and vomiting. Musculoskeletal: Negative for myalgias. Skin: Negative for itching and rash. Neurological: Negative for dizziness and headaches. Objective Physical Exam Constitutional: General: She is not in acute distress. Appearance: She is not diaphoretic. HENT: Head: Normocephalic. Right Ear: Tympanic membrane, ear canal and external ear normal. Left Ear: Tympanic membrane, ear canal and external ear normal. Nose: Nose normal. Mouth/Throat: Mouth: Mucous membranes are moist. Pharynx: Oropharynx is clear. No oropharyngeal exudate or posterior oropharyngeal erythema. Eyes: Conjunctiva/sclera: Conjunctivae normal. Pupils: Pupils are equal, round, and reactive to light. Cardiovascular: Rate and Rhythm: Normal rate and regular rhythm. Heart sounds: Normal heart sounds. Pulmonary: Effort: Pulmonary effort is normal. No tachypnea, accessory muscle usage or respiratory distress. Breath sounds: Normal breath sounds. No stridor. No wheezing, rhonchi or rales. Abdominal: Palpations: Abdomen is soft. Tenderness: There is no abdominal tenderness. Musculoskeletal: Cervical back: Normal range of motion and neck supple. No rigidity or tenderness. Lymphadenopathy: Cervical: Cervical adenopathy present. Skin: General: Skin is warm and dry. Neurological: Mental Status: She is alert and oriented to person, place, and time. ASSESSMENT/PLAN: 1. Viral illness - ICD9: 079.99, ICD10: B34.9 - Discussed viral etiology and rationale for treatment. - Symptomatic treatment with prn analgesia - Supportive care with fluids and rest Patient will follow up with primary care provider as needed. Patient was instructed to immediately proceed to emergency room for any new, worsening, or symptoms lasting longer than anticipated. The patient's clinical presentation is otherwise unremarkable at this time. Based on exam and clinical finding, the patient is stable for discharge. Plan of care was discussed with patient. Patient verbalizes understanding and agrees to plan of care. This note was generated using [employer] Real-Time software. It may contain errors in wording, punctuation, or spelling. Fabio Vann APRN.[facility] NotePatient ambulated to ED room 15 with visitor for evaluation of right upper quadrant abdominal pain. She states that she has been bloated today and felt constipated, although she had normal formed stool yesterday, she only passed a small amount of loose stool with a feeling that she did not evacuate completely. She took a women's laxative at 1999 and at 2014 developed severe RUQ abdominal pain described as sharp and stabbing and rated 8/10 on pain scale. She states that this is similar to gallbladder pain, but she no longer has gallbladder. The pain may radiate around the ribs into the back, but unsure. [facility] [id number] [facility] Discharge instructions Patient Education 08/18/2022 10:47:10 Viral Syndrome (Adult) Viral Syndrome (Adult) A viral illness may cause a number of symptoms such as fever. Other symptoms depend on the part of the body that the virus affects. If it settles in your nose, throat, and lungs, it may cause cough, sore throat, congestion, runny nose, headache, earache and other ear symptoms, or shortness of breath. If it settles in your stomach and intestinal tract, it may cause nausea, vomiting, cramping, and diarrhea. Sometimes it causes generalized symptoms like "aching all over," feeling tired, loss of energy, or loss of appetite. A viral illness usually lasts anywhere from several days to several weeks, but sometimes it lasts longer. In some cases, a more serious infection can look like a viral syndrome in the first few days of the illness. You may need another exam and additional tests to know the difference. Watch for thewarning signs listed below for when to seek medical advice. Home care Follow these guidelines for taking care of yourself at home: If symptoms are severe, rest at home for the first 2 to 3 days. Stay away from cigarette smoke - both your smoke and the smoke from others. You may use klwu-uqi-yvrsdlp acetaminophen or ibuprofen for fever, muscle aching, and headache, unless another medicine was prescribed for this. If you have chronic liver or kidney disease or ever had a stomach ulcer or gastrointestinal bleeding, talk with your healthcare provider before using these medicines. No one who is younger than 18 and ill with a fever should take aspirin. It may cause severe disease or . Your appetite may be poor, so a light diet is fine. Avoid dehydration by drinking 8 to 12, 8-ounce glasses of fluids each day. This may include water; orange juice; lemonade; apple, grape, and cranberry juice; clear fruit drinks; electrolyte replacement and sports drinks; and decaffeinated teas andcoffee. If you have been diagnosed with a kidney disease, ask your healthcare provider how much andwhat types of fluids you should drink to prevent dehydration. If you have kidney disease, drinking too much fluid can cause it build up in the your body and be dangerous to your health. Dcqf-lgn-krroxib remedies won't shorten the length of the illness but may be helpful for symptoms such as cough, sore throat, nasal and sinus congestion, or diarrhea. Don't use decongestants if you have high blood pressure. Follow-up care Follow up with your healthcare provider if you do not improve over the next week. Call 911 Call 911 if any of the following occur: Convulsion Feeling weak, dizzy, or like you are going to faint Chest pain, or more than mild shortness of breath When to seek medical advice Call your healthcare provider right away if any of these occur: Cough with lots of colored sputum (mucus) or blood in your sputum Chest pain, shortness of breath, wheezing, or trouble breathing Severe headache; face, neck, or ear pain Severe, constant pain in the lower right side of your belly (abdominal) Continued vomiting (can t keep liquids down) Frequent diarrhea (more than 5 times a day); blood (red or black color) or mucus in diarrhea Feeling weak, dizzy, or like you are going to faint Extreme thirst Fever of 100.4 F (38 C) or higher, or as directed by your healthcare provider [phone] [employer]. [address] [place] [address], [place] [address]. All rights reserved. This information is not intended as a substitute for professional medical care. Always follow yourhealthcare professional's instructions. Follow Up Care 08/18/2022 08:31:03 With:SMITA BRODERICK Address: [address] [place] [phone]- [phone] Business (1) When:2-4 days Comments:Follow-up as neededReturn to ED if symptoms worsen [facility] 11-16-2022 Note Discharge Instructions Thank you for allowing [facility] to assist you with your healthcare needs. The following is importantdischarge information regarding your hospital visit. Diagnosis from Today's Visit Viral syndrome Nausea What to Do Next Instructions from Your Care Team Discharge Return to Work, School, or Sports (Return to Work, School, or Sports) - Ordered -- 08/20/22, May return to: work, 08/18/22 10:47:00 EST Post Acute Orders No qualifying data available. You Need to Schedule the Following Appointments Follow Up with SMITA BRODERICK When Within 2-4 days Why: Follow-up as needed Return to ED if symptoms worsen Where: [address] [place] [phone]- [phone] Business (1) Allergies Onion (Migraines) Medications Please ask your primary doctor or pharmacist before taking any other medication not listed, including over the counter drugs, herbal medications, vitamins and or supplements as they may interact withyour home medications. What How Much When Why Instructions Last Dose New ondansetron (Zofran ODT use ondansetron oral tablet, disintegrating ) 8 Milligram by mouth Two (2) times a day Viral syndrome Duration: 3 Days prn vomiting Printed Prescription Unchanged albuterol (albuterol MDI (90 mcg/ inh) CFC free inhalation aerosol) 2 puff(s) by inhalation Every 4 hours Duration: 30 Days ok to fill generic equivalent rescue inhaler Unchanged albuterol (albuterol MDI (90 mcg/ inh) CFC free inhalation aerosol) 2 puff(s) by inhalation Every 4 hours Duration: 30 Days ok to fill generic equivalent rescue inhaler Unchanged cholecalciferol (Vitamin D3 50,000 intl units (1250 mcg) oral capsule) 1 cap by mouth Every week Vitamin D deficiency Please take this list to your next doctor s visit. Bring all medications you take, including over the counter medications, herbals and other supplements with you to your doctor s visit. Patients and families are reminded to discard old lists and to update any records with all medication providers or retail pharmacies. Medication Leaflets ondansetron (oral) (on BECCA se kristine) Zofran, Zofran ODT, Mine What is the most important information I should know about ondansetron? You should not use ondansetron if you are also using apomorphine (Apokyn). What is ondansetron? Ondansetron blocks the actions of chemicals in the body that can trigger nausea and vomiting. Ondansetron is used to prevent nausea and vomiting that may be caused by surgery, cancer chemotherapy, or radiation treatment. Ondansetron may be used for purposes not listed in this medication guide. What should I discuss with my health care provider before taking ondansetron? You should not use ondansetron if: you are also using apomorphine (Apokyn); or you are allergic to ondansetron or similar medicines (dolasetron, granisetron, palonosetron). To make sure ondansetron is safe for you, tell your doctor if you have: liver disease; an electrolyte imbalance (such as low levels of potassium or magnesium in your blood); congestive heart failure, slow heartbeats; a personal or family history of long QT syndrome; or a blockage in your digestive tract (stomach or intestines). Ondansetron is not expected to harm an unborn baby. Tell your doctor if you are . It is not known whether ondansetron passes into breast milk or if it could harm a nursing baby. Tell your doctor if you are breast-feeding a baby. Ondansetron is not approved for use by anyone younger than 4 years old. Ondansetron orally disintegrating tablets may contain phenylalanine. Tell your doctor if you have phenylketonuria (PKU). How should I take ondansetron? Follow all directions on your prescription label. Do not take this medicine in larger or smaller amounts or for longer than recommended. Ondansetron can be taken with or without food. The first dose of ondansetron is usually taken before the start of your surgery, chemotherapy, or radiation treatment. Follow your doctor's dosing instructions very carefully. Take the ondansetron regular tablet with a full glass of water. To take the orally disintegrating tablet (Zofran ODT): Keep the tablet in its blister pack until you are ready to take it. Open the package and peel back the foil. Do not push a tablet through the foil or you may damage the tablet. Use dry hands to remove the tablet and place it in your mouth. Do not swallow the tablet whole. Allow it to dissolve in your mouth without chewing. Swallow several times as the tablet dissolves. To use ondansetron oral soluble film (strip) (Zuplenz): Keep the strip in the foil pouch until you are ready to use the medicine. Using dry hands, remove the strip and place it on your tongue. It will begin to dissolve right away. Do not swallow the strip whole. Allow it to dissolve in your mouth without chewing. Swallow several times after the strip dissolves. If desired, you may drink liquid to help swallow the dissolved strip. Wash your hands after using Zuplenz. Measure liquid medicine with the dosing syringe provided, or with a special dose-measuring spoon ormedicine cup. If you do not have a dose-measuring device, ask your pharmacist for one. Store at room temperature away from moisture, heat, and light. Store liquid medicine in an upright position. What happens if I miss a dose? Take the missed dose as soon as you remember. Skip the missed dose if it is almost time for your next scheduled dose. Do not take extra medicine to make up the missed dose. What happens if I overdose? Seek emergency medical attention or call the Poison Help line at . Overdose symptoms may include sudden loss of vision, severe constipation, feeling light-headed, or fainting. What should I avoid while taking ondansetron? Ondansetron may impair your thinking or reactions. Be careful if you drive or do anything that requires you to be alert. What are the possible side effects of ondansetron? Get emergency medical help if you have signs of an allergic reaction: rash, hives; fever, chills, difficult breathing; swelling of your face, lips, tongue, or throat. Call your doctor at once if you have: severe constipation, stomach pain, or bloating; headache with chest pain and severe dizziness, fainting, fast or pounding heartbeats; fast or pounding heartbeats; jaundice (yellowing of the skin or eyes); blurred vision or temporary vision loss (lasting from only a few minutes to several hours); high levels of serotonin in the body--agitation, hallucinations, fever, fast heart rate, overactivereflexes, nausea, vomiting, diarrhea, loss of coordination, fainting. Common side effects may include: diarrhea or constipation; headache; drowsiness; or tired feeling. This is not a complete list of side effects and others may occur. Call your doctor for medical advice about side effects. You may report side effects to FDA at 5-909-VDI-9987. What other drugs will affect ondansetron? Ondansetron can cause a serious heart problem, especially if you use certain medicines at the same time, including antibiotics, antidepressants, heart rhythm medicine, antipsychotic medicines, and medicines to treat cancer, malaria, HIV or AIDS. Tell your doctor about all medicines you use, and those you start or stop using during your treatment with ondansetron. Taking ondansetron while you are using certain other medicines can cause high levels of serotonin to build up in your body, a condition called 'serotonin syndrome,' which can be fatal. Tell your doctor if you also use: medicine to treat depression; medicine to treat a psychiatric disorder; a narcotic (opioid) medication; or medicine to prevent nausea and vomiting. This list is not complete and many other drugs can interact with ondansetron. This includes prescription and jmmy-gva-mqeyngz medicines, vitamins, and herbal products. Give a list of all your medicines to any healthcare provider who treats you. Where can I get more information? Your pharmacist can provide more information about ondansetron. Remember, keep this and all other medicines out of the reach of children, never share your medicines with others, and use this medication only for the indication prescribed. Every effort has been made to ensure that the information provided by [employer]. ('[employer]') is accurate, up-to-date, and complete, but no guarantee is made to that effect. Drug information contained herein may be time sensitive. [employer] information has been compiled for use by healthcare practitioners and consumers in the [place] and therefore [employer] does not warrant that uses outside of the [place] are appropriate, unless specifically indicated otherwise. [employer] drug information does not endorse drugs, diagnose patients or recommend therapy. [employer] drug information isan informational resource designed to assist licensed healthcare practitioners in caring for their p atients and/or to serve consumers viewing this service as a supplement to, and not a substitute for, the expertise, skill, knowledge and judgment of healthcare practitioners. The absence of a warningfor a given drug or drug combination in no way should be construed to indicate that the drug or drug combination is safe, effective or appropriate for any given patient. [facility] does not assume any responsibility for any aspect of healthcare administered with the aid of information [facility] provides. The information contained herein is not intended to cover all possible uses, directions, precautions, warnings, drug interactions, allergic reactions, or adverse effects. If you have questions about the drugs you are taking, check with your doctor, nurse or pharmacist. Copyright 6599-5086 [employer]. Version: 13.. Revision Date: 07/23/2016. Education Materials Viral Syndrome (Adult) A viral illness may cause a number of symptoms such as fever. Other symptoms depend on the part of the body that the virus affects. If it settles in your nose, throat, and lungs, it may cause cough, sore throat, congestion, runny nose, headache, earache and other ear symptoms, or shortness of breath. If it settles in your stomach and intestinal tract, it may cause nausea, vomiting, cramping, and diarrhea. Sometimes it causes generalized symptoms like "aching all over," feeling tired, loss of energy, or loss of appetite. A viral illness usually lasts anywhere from several days to several weeks, but sometimes it lasts longer. In some cases, a more serious infection can look like a viral syndrome in the first few days of the illness. You may need another exam and additional tests to know the difference. Watch for thewarning signs listed below for when to seek medical advice. Home care Follow these guidelines for taking care of yourself at home: If symptoms are severe, rest at home for the first 2 to 3 days. Stay away from cigarette smoke - both your smoke and the smoke from others. You may use xqxa-hqm-bhkokrr acetaminophen or ibuprofen for fever, muscle aching, and headache, unless another medicine was prescribed for this. If you have chronic liver or kidney disease or ever had a stomach ulcer or gastrointestinal bleeding, talk with your healthcare provider before using these medicines. No one who is younger than 18 and ill with a fever should take aspirin. It may cause severe disease or . Your appetite may be poor, so a light diet is fine. Avoid dehydration by drinking 8 to 12, 8-ounce glasses of fluids each day. This may include water; orange juice; lemonade; apple, grape, and cranberry juice; clear fruit drinks; electrolyte replacement and sports drinks; and decaffeinated teas andcoffee. If you have been diagnosed with a kidney disease, ask your healthcare provider how much andwhat types of fluids you should drink to prevent dehydration. If you have kidney disease, drinking too much fluid can cause it build up in the your body and be dangerous to your health. Botr-xeu-medjqol remedies won't shorten the length of the illness but may be helpful for symptoms such as cough, sore throat, nasal and sinus congestion, or diarrhea. Don't use decongestants if you have high blood pressure. Follow-up care Follow up with your healthcare provider if you do not improve over the next week. Call 911 Call 911 if any of the following occur: Convulsion Feeling weak, dizzy, or like you are going to faint Chest pain, or more than mild shortness of breath When to seek medical advice Call your healthcare provider right away if any of these occur: Cough with lots of colored sputum (mucus) or blood in your sputum Chest pain, shortness of breath, wheezing, or trouble breathing Severe headache; face, neck, or ear pain Severe, constant pain in the lower right side of your belly (abdominal) Continued vomiting (can t keep liquids down) Frequent diarrhea (more than 5 times a day); blood (red or black color) or mucus in diarrhea Feeling weak, dizzy, or like you are going to faint Extreme thirst Fever of 100.4 F (38 C) or higher, or as directed by your healthcare provider [phone] [employer]. [address] [place], [place] [id number]. All rights reserved. This information is not intended as a substitute for professional medical care. Always follow yourhealthcare professional's instructions. Additional Information VACCINATE! IT SAVES LIVES! Members of the community who have not yet received the COVID-19 vaccine and would like to receive it can visit one of [facility] [facility] vaccine clinics. There are many vaccine clinic locations within the [facility]. For locations and available times, please visit [email or web address]. It is important to note that some COVID mobile vaccine clinics are held outdoors and may be canceled in rainy orstormy conditions. To learn more about pediatric vaccinations (ages 5-11), we invite you to visit the [facility] webpage. [email or web address] learn more about the [email or web address] vaccine, we invite you to visit the [facility] website for a list of frequently asked questions. [email or web address] [facility] Patient Portal Access Instructions: Stay connected with your healthcare team and access your personal medical information anytime with the [facility] Patient Portal. If you would like a full copy of your medical records please contact the [facility] Medical Records Department Tuesday through Tuesday between 8a.m. and 4:30p.m. Please follow the directions below to access the portal: 1.Access the email account you provided upon registration to the [facility].2.Look for an invitation email from [facility].3.Open the email and access the invitation link: Accept Invitation to [facility]4.Fill in the required lyon to create your account. Sign into [email or web address] with your username and password that you created in the above steps to stay up to date. You can then view a summary of results, a summary of your visits, and the ability to download your summaries to your computer or send the information securely to a physician. Remember that your healthcare information is confidential, so carefully consider who you will allow to register on the [facility] Patient Portal for access to your information. You can also access the [facility] Patient Portal on the [employer]. Simply click on "Health Records" under "HealthData" and then click on the [employer] logo. HOW TO SAFELY DISPOSE OF PRESCRIPTION MEDICATIONS Please use one of the following methods to safely dispose of your unused medications. 1.Use a drug disposal kit: the drug disposal pouch allows you to safely discard your old and unuseddrugs. Ask your nurse to give you one when you are discharged.2.Visit a local take-back location: Many local pharmacies and police departments have programs that collect old and unwanted prescriptiondrugs. Call your local pharmacy or go to http://bit.MePlease/6N9Mx2h to find one close to you.3.Make use of household items: Use cat litter or old coffee grounds to dispose medications if other options arenot available. Mix your drugs with these household products, seal them in an airtight container andthrow it into the garbage. [facility]: [phone] to be sure your drugs can be disposed of in this way. Some medicines may require a different approach.4.Never flush your medications down the toilet. IF YOU HAVE BEEN PRESCRIBED AN OPIOIDS FOR PAIN If you have been prescribed an opioid (such as hydrocodone, oxycodone or morphine), it is critical to understand the possible side effects and risks of opioid pain medications. Even when taken as directed, opioids can have several side effects including: Tolerance, meaning you might need to take more of a medication for the same pain relief. Nausea, vomiting and/or constipation. Sleepiness, dizziness, dry mouth, confusion, depression or itching. Physical dependence, meaning you have withdrawal symptoms when a medication is stopped ? this can develop within a few days. KNOW YOUR RESPONSIBILITIES It is important to know exactly how much and how often to take the opioid pain medications you are prescribed. Never take opioids in higher amounts or more often than prescribed. Do not combine opioids with alcohol or other drugs that cause drowsiness, such as benzodiazepines, also known as benzos,including diazepam and alprazolam, muscle relaxants or sleep aids. Never sell or share prescriptionopioids. This is illegal. Store opioids in a secure place and out of reach of others (including children, family, friends and visitors). The last page(s) of this document has been signed and retained as a CHART COPY Signatures Patient Education Materials Viral Syndrome (Adult) Medication Leaflets ondansetron (oral) My discharge plan and instructions have been reviewed and explained to me and IKIM DANIELLE M understand my current condition and have read and understand these discharge instructions. I have received a written copy of the plan/instructions. If I have questions, I am aware that I should contactmy doctor. 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 Signature: Date/Time: Relationship to Patient: Witness Name/Signature: Date/Time: [facility]03-17-2022 Evaluation + Plan note Diagnostic Tests Pending * MISC Lab Send Out (Non-Blood Specimens) 12/17/21 [facility] 03-09-2022 Evaluation + Plan note Diagnostic Tests Pending * Testosterone, Free and Total 12/09/21 [facility] 03-03-2016 History of Past illness Narrative* Problem Noted Date Resolved Date Diet controlled gestational diabetes mellitus in third trimester 12/04/2015 03/25/2016 Fe deficiency anemia 07/18/2015 03/25/2016 Overview: July 18, 2015 PNV, extra folate and FE supplement. Adenike Weaver MD Antepartum anemia complicating in firs t trimester 07/14/2015 03/25/2016 Gestational diabetes mellitus, class A1 07/14/20 15 03/25/2016 Overview: July 14, 2015 abnormal 1 hr. Adenike Weaver MD Obesity complicating 07/10/2015 0 03/25/2016 Supervision of other high risk pregnancies, thir d trimester 07/10/2015 03/25/2016 Overview: Boy on us- Christopher Calculus of gallbladder with out mention of cholecystitis or obstruction 03/12/2008 07/10/2015 Anemia, antepartum(648.23) 09/04/200712/11 Supervision of normal first 08/03/2007 12/12/2007 documented as of this encounter (statuses as of 03/06/2023) [facility] No data available for this section [facility] Evaluation + Plan note Future Appointments Appointment Date:02/20/2025 03:30:00 PM Scheduled Provider:SMITA BRODERICK DO Location:[facility] [place] Appointment Type:PC Wellness Annual [facility] Evaluation note* Diagnosis Viral illness- Primary Unspecified viral infection, in conditions classified elsewhere and of unspecified site documented in this encounter [facility] Discharge instructions No data available for this section [facility] Progress note No data available for this section [facility] Summary Purpose Family History No Family History Records FoundNo Family History Records FoundNo Family History Records Found No data available for this section No data available for this section No Family History Records Found No data available for this section No data available for this section No data available for this section No Family History Records FoundNo Family History Records Found Advance Directives No Advanced Directives Records FoundNo Advanced Directives Records FoundNo Advanced Directives Records FoundNo Advanced Directives Records FoundNo Advanced Directives Records FoundNo Advanced Directives Records Found Additional Source Comments INFORMATION SOURCE (unrecogn ized section and content) DATE CREATED AUTHOR 09/11/2018 [facility] DATE CREATED AUTHOR AUTHOR'S ORGANIZ ATION 08/29/2022 [facility] DATE CREATED AUTHOR AUTHOR'S ORGANIZ ATION 03/12/2023 [facility] DATE CREATED AUTHOR AUTHOR'S ORGANIZ ATION 09/29/2023 [facility] DATE CREATED AUTHOR AUTHOR'S ORGANIZ ATION 11/10/2024 [facility] DATE CREATED AUTHOR AUTHOR'S ORGANIZ ATION 01/25/2025 [facility] Care Team (unrecognized sect ion and content) Personnel Name: LÁZARO LINDA DO Address: Address: [address], [place] [address] Care Team Personnel Name: SMITA BRODERICK DO Position: Physician Member Role: Primary Care Physician Address: Address: [address] [place] [address] Name: MACIEL Argueta Position: AO RN Member Role: ED RN Name: CHIVO THOMPSON MD Position: ED Physician Member Role: Attending Physician Address: Address: [address] [place] [address] [place], [place] [address] Care Team Related Persons Name: CHYNA RENE Address: Home [address] [place], [place] [id number] Address: Temporary [address] [place], [place] [id number] Name: MANDIE RENE Care Team Personnel Name: SMITA BRODERICK DO Position: Physician Member Role: Primary Care Physician Address: Address: [address] [place] [address] [place] Care Team Related Persons Name: CHYNA RENE Address: Home [address] [place], [place] [id number] Address: Temporary [address] [place], [place] [id number] Name: MANDIE RENE Source Comments (unrecognize d section and content) In the event this informatio n is protected by the Federal Confidentiality of Alcohol and Drug Abuse Patient Records regulations: The Federal rules restrict any use of the information to criminally investigate or prosecute any alcohol or drug abuse patient.[facility] Reason for Visit (unrecogniz ed section and content) Reason Comments Nasal Congestion With cough and lost voice x 2 days Care Teams (unrecognized sec tion and content) Occupational Health Rn Relationship Specialty Start Date End Date Lázaro Linda DO [address] [place] [address] PCP - General Family Medicine 05/27/21 FOR RECORDS PERTAINING TO PATIENTS WHO ARE OR HAVE BEEN ENROLLED IN A CHEMICAL DEPENDENCY/SUBSTANCEABUSE PROGRAM, SOME INFORMATION MAY BE OMITTED. This clinical summary was aggregated from multiple sources. Caution should be exercised in using it in the provision of clinical care. This summary normalizes information from multiple sources, and as a consequence, information in this document may materially change the coding, format and clinical context of patient data. In addition, data may be omitted in some cases. CLINICAL DECISIONS SHOULD BE BASED ON THE PRIMARY CLINICAL RECORDS. [facility] [employer] [facility]. provides no warranty or guarantee of the accuracy or completeness of information in this document.
[2025-04-26 22:05] LABS: Hematocrit 39.0 % (37-47); Hemoglobin 13.5 g/dL (12.0-15.0); Immature Granulocytes Count 0.010 X10^3/uL (0.0-0.0); Mean Corp Hgb Conc 34.6 g/dL (32-36); Mean Corpuscular Volume 88.8 fL (81-99); Mean Platelet Vol. 10.8 fl (6.2-12.0); NRBC Flagged by Analyzer 0 % (0-5); Platelet Count 293 K/mm3 (150-450); RBC Distribution Width CV 13.3 % (11.6-14.6); RBC Distribution Width SD 42.8 fl (35.1-43.9); Red Blood Count 4.39 M/mm3 (4.2-5.4); White Blood Count 7.6 K/mm3 (4.4-11.0)
[2025-04-26 22:57] LABS: AST(SGOT) 29 U/L (<=31); Alanine Aminotransfer ALT/SGPT 33 U/L (<=34); Albumin, Serum 4.5 g/dL (3.5-5.0); Alkaline Phosphatase 91 U/L (35-104); Anion Gap 13 (5-15); BUN 5 mg/dL (4-19); BUN/Creat Ratio 5.5 RATIO (10-20); Calcium,Total 9.9 mg/dL (7.6-11.0); Carbon Dioxide 22.1 mmol/L (21.0-32.0); Chloride 103 mmol/L (98-108); Cholesterol 127 mg/dL (<=200); Globulin 3.4 g/dL (2.2-4.2); Glucose 87 mg/dL (70-99); Low Density Lipoprotein Calc. 62 mg/dL; Potassium 4.4 mmol/L (3.3-5.1); Triglycerides 56 mg/dL; Very Low Density Lipoprotein 11 mg/dL (5-40); cholesterol:hdl ratio screen 2.37
[2025-04-26 23:00] LABS: FOLATES,SERUM (FOLIC ACID) 4.22 ng/mL (4.60-34.80)
[2025-04-27 00:56] LABS: Iron 98 ug/dL (50-170); Iron Binding Capacity,Total 318 ug/dL (250-450); Iron Binding Capacity,Unsat 220 ug/dL (228-428)
[2025-04-27 01:00] LABS: Ferritin 114 ng/mL (22-378); Free T3 3.6 pg/mL (2.18-3.98); Vitamin B12 564 pg/mL (180-914); Vitamin D,25 Hydroxy 7.9 ng/mL (30-100)
== END | disposition home or self-care (01) ==
LOC: LAB 21:45
PROVIDERS: PCP Family Medicine
DX: E03.9 Hypothyroidism, unspecified (principal); R53.83 Other fatigue; E66.3 Overweight; L65.9 Nonscarring hair loss, unspecified; E55.9 Vitamin D deficiency, unspecified
CPT/HCPCS: 36415; 80053; 80061; 82306; 82607; 82728; 82746; 83036; 83540; 83550; 84439; 84443; 84481; 85025